=== PATIENT | female | born 1960 | race African-American/Black ===

== ENCOUNTER 2021-01-26 10:06 | Inpatient (IN) | payer MEDICARE, MEDICAID, SELFPAY ==
--- NOTE | ~2021-01-26 | CT_ITS ---
EXAMINATION: CT HEAD WITHOUT CONTRAST CLINICAL INFORMATION: Dizziness COMPARISON: None TECHNIQUE: Contiguous axial imaging was performed from the skull base to vertex without intravenous administration of contrast. This CT examination was performed using dose optimization techniques as appropriate, variously including the following: *Automated exposure control *Adjustment of mA and/or kV according to patient size (this includes techniques or standardized protocols for targeted exams where dose is matched to indication/reason for exam; i.e. extremities or head) *Use of iterative reconstruction technique DLP: 714 mGy-cm FINDINGS: There is no evidence of acute intracranial hemorrhage. No abnormal mass effect or midline shift is seen. No extra-axial fluid collections are identified. There is a large amount of periventricular white matter low density seen consistent with microangiopathy. There is a previous lacunar infarct seen involving the anterior aspect of the left internal and extreme capsules. There is a region of diminished density within the subcortical white matter in the high right parietal lobe without significant mass effect which may represent an infarct of acute or chronic nature. The ventricles are normal in size. There is no abnormal attenuation within the brain parenchyma. The osseous structures and soft tissues are normal. The mastoid air cells and visualized portions of the paranasal sinuses are well aerated. CT/CT head/brain wo con IMPRESSION: 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 Old lacunar infarct left basal ganglia. Region of diminished density without significant edema about the high right parietal lobe which may be related to an acute or chronic infarct.
--- NOTE | ~2021-01-26 | MR_ITS ---
EXAMINATION: MR BRAIN WITHOUT CONTRAST CLINICAL INFORMATION: Cerebral vascular accident. COMPARISON: CT head from 01/26/2021. TECHNIQUE: MRI of the brain was obtained using routine sequences without contrast. FINDINGS: No focal restricted diffusion is demonstrated to suggest acute or subacute cerebral ischemia. No evidence of acute or chronic hemorrhagic products on heme-sensitive imaging. Nonspecific scattered periventricular and deep white matter T2 FLAIR hyperintensities. Proportional prominence of the ventricles and sulcal spaces without evidence of obstructive hydrocephalus. No abnormal mass effect. No midline shift. Normal appearance of the pituitary gland. No abnormalities of the posterior fossa with normal appearance of the brainstem and cerebellum. Normal positioning of the cerebellar tonsils. Normal arterial and venous vascular flow voids are present. Normal, homogeneous marrow signal. Mild to moderate degenerative spondyloarthropathy of the visualized upper cervical spine. No signal abnormalities within the paranasal sinuses or mastoids. MR/MR head/brain wo con IMPRESSION: 1. No acute intracranial abnormalities. 2. Moderate underlying nonspecific white matter disease.
--- NOTE | 2021-01-26 10:39 | ECG_ITS ---
Test Reason : CRISIS Blood Pressure : / mmHG Vent. Rate : 084 BPM Atrial Rate : 084 BPM P-R Int : 140 ms QRS Dur : 078 ms QT Int : 376 ms P-R-T Axes : 074 060 061 degrees QTc Int : 444 ms Normal sinus rhythm Nonspecific ST abnormality Abnormal ECG No previous ECGs available Referred By: Yuli Billy Electronically Signed By:ANABEL CASTRO MD
--- NOTE | 2021-01-26 10:44 | ED_ITS ---
HPI - Psych General Chief Complaint: Psychiatric Symptoms Stated Complaint: crisis Time Seen by Provider: 01/26/21 10:21 Source: patient Mode of arrival: ambulatory Limitations: no limitations History of Present Illness HPI Narrative: 60-year-old female here with complaints of feeling anxious, depressed and thoughts of SI but no plan. No hallucinations or HI. Complaining of some dizziness which is worsened with position changes. No vision changes, nausea, vomiting, chest pain, shortness of breath, weakness, numbness or tingling. MD complaint: feels depressed and anxiety Related Data Home Medications Medication Instructions Recorded Confirmed apixaban [Eliquis] 1 tab PO DAILY 01/26/21 01/26/21 cyclobenzaprine 1 tab PO BID PRN 01/26/21 01/26/21 insulin glargine [Lantus Solostar 1 unit SUBCUT BEDTIME 01/26/21 01/26/21 U-100 Insulin] rosuvastatin 1 tab PO BEDTIME 01/26/21 01/26/21 Allergies Allergy/AdvReac Type Severity Reaction Status Date / Time insulin aspart [From Novolog] Allergy Unknown [id number] Unverified 01/26/21 13:01 A Novolog Allergy Unknown Itchy Eyes Uncoded 01/26/21 13:01 Review of Systems Review of Systems: Yes all other systems are reviewed and are negative Constitutional: Constitutional: Reports no additional constitutional complaints, Denies body ache(s), Denies chills, Denies fever(s), Denies headache(s) and Denies weakness Eyes: Eyes: Reports no additional eye complaints and Denies change in vision ENT: Reports system reviewed and no additional complaints, except as docume nted, Reports dizziness, Denies headache(s), Denies nasal congestion, Denies nasal discharge and Denies neck pain Cardiovascular: Cardiovascular: Reports no additional cardiovascular complaints, Denies chest pain, Denies leg edema and Denies dyspnea Respiratory: Respiratory: Reports no additional respiratory complaints, Denies cough and Denies dyspnea Gastrointestinal: Gastrointestinal: Reports no additional gastrointestinal complaints, Denies abdominal pain, Denies diarrhea, Denies nausea and Denies vomiting Genitourinary: Genitourinary: Reports no additional female genitourinary complaints and Denies urinary incontinence Musculoskeletal: Musculoskeletal: Reports no additional musculoskeletal complaints, Denies back pain, Denies arthralgias, Denies joint swelling, Denies neck pain, Denies numbness and Denies tingling Integumentary/Breasts: Skin/Breast: Reports system reviewed and no additional complaints, except as docu and Denies rash Neurologic: Reports system reviewed and no additional complaints, except as documented, Denies Abnormal speech present, Reports dizziness, Denies headache(s), Denies numbness, Denies tingling and Denies weakness Psychiatric: Psychiatric: Reports anxiety, Reports depression, Denies hallucinations, Denies homicidal ideation and Reports suicidal ideation [facility] Past Medical History Attestation statement: The following information was validated with the patient. Source: old records reviewed and nursing notes reviewed Medical History (Updated 01/26/21 @ 14:11 by Rubio Neil NP) CVA (cerebral vascular accident) Diabetes Social History Social History Smoked in Last 30 Days: No Use of substances other than those prescribed or required for medical reasons: No Advance Directives: No Advance Directives Information Provided: No Physical Exam Vital Signs: Vital Signs: Last Vital Signs Temp 97.3 F 01/26/21 11:15 Pulse 96 01/26/21 11:15 Resp 18 01/26/21 15:08 BP 146/86 H 01/26/21 11:15 Pulse Ox 98 01/26/21 11:15 Body Mass Index 42.0 Const: General: cooperative, healthy appearing, comfortable and no acute distress Orientation/consciousness: patient oriented x3 Limitations: no limitations HENMT: Head: Yes normal to inspection Ears: hearing grossly normal bilaterally General nose exam: Normal external nose present Face and sinus: Yes normal facial exam Mouth: Normal oral and palatal mucosa present Throat: Yes posterior oropharynx normal Eyes: General: appearance normal, both eyes and all related structures Pupils: Equal, round and reactive pupils present Neck: Neck: Yes normal visual inspection Chest: Chest palpation & inspection: normal inspection of the chest Resp: Effort & Inspection: normal respiratory effort Auscultation: clear to auscultation bilaterally Cardio: Rate: regular rate Rhythm: regular rhythm Peripheral pulses: Peripheral pulses 2+ throughout GI: Inspection: Yes normal to inspection Palpation (GI): Soft to palpation and nontender Auscultation: normal bowel sounds Back/Spine/Pelvis: Thoracic/Lumbar Spine: thoracic and lumbar spine normal to inspection Skin: General skin exam: no rashes or lesions noted Neuro: General: patient oriented x3, no focal motor deficits and normal sensation to monofilament Cranial nerves: Yes CN's II-XII intact bilaterally, Yes Equal, round and reactive pupils present, Yes Bilaterally intact EOM p resent, Yes Nystagmus not present, Yes Normal facial strength present, Yes Midline tongue present and Yes Normal gag reflex present Cognition (Neuro): normal cognition Speech: No Abnormal speech present Gait exam (Neuro): Normal gait present Motor exam (neuro): 5/5 motor strength present throughout Sensory Exam: Normal double simultaneous stimulation for sensation Coordination: [id number] test normal, [id number]-ib-[id number] test normal and tandem gait normal Extrem: General: Yes normal to inspection NIH Stroke Scale Internal: Initial- Upon Arrival Level of Consciousness: Alert Level of Consciousness Questions: Answers both questions correctly Level of Consciousness Commands: Performs both tasks correctly Best Gaze: Normal Visual: No visual loss Facial Palsy: Normal Motor Arm (Right): No drift Motor Arm (Left): No drift Motor Leg (Right): No drift Motor Leg (Left): No drift Limb Ataxia: Absent Sensory: Normal Best Language: No aphasia Dysarthia: Normal Extinction and Inattention: No abnormality Score: 0 Course Course Course Narrative: 60-year-old female here with anxiety, depression, vague SI. Not currently on any medications for anxiety or depression. Does not have a therapist or psychiatrist. Multiple life changes causing stress. Also complaining of dizziness which is worsened with position changes. Normal neuro exam. Will check labs, EKG, CT head, drug screen 1215-CT shows 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 Old lacunar infarct left basal ganglia. Region of diminished density without significant edema about the high right parietal lobe which may be related to an acute or chronic infarct. NIH score 0 with symptoms >1 week. Not a TPA candidate. However, will need MRI brain to determine if acute stroke. Patient and nursing aware. 1410-MRI brain 1. No acute intracranial abnormalities. 2. Moderate underlying nonspecific white matter disease. At this point patient is medically cleared for N evaluation. Nursing aware. 1700-Sign out to night team pending BHN. MDM - Psych Medical Records Attestation: I reviewed the patient's medical records. Lab Data Attestation: I reviewed the patient's lab results. Result diagrams: 01/26/21 10:57 01/26/21 10:58 Labs: Lab Results 01/26/21 01/26/21 01/26/21 Range/Units 10:30 10:30 10:57 WBC 6.2 (4.8-10.8) X10*3/uL RBC 4.53 (4.20-5.50) X10*6/uL Hgb 11.7 L (12.0-16.0) g/dl Hct 37.7 (37-47) % MCV 83.2 (80-98) fL MCH 25.8 L (27.0-33.0) pg MCHC 31.0 (31.0-35.0) g/dl RDW 13.5 (11.0-16.0) % Plt Count 319 (160-400) X10*3/uL MPV 10.0 (9.4-12.3) fL Immature Gran % (Auto) 0.3 (0.0-0.4) % Neut % (Auto) 61.8 (45-73) % Lymph % (Auto) 29.9 (20-40) % Woodford % (Auto) 5.4 (2-11) % Eos % (Auto) 2.3 (0-4) % Baso % (Auto) 0.3 (0-2) % Lymph # (Auto) 1.8 (1.2-4.9) X10*3/uL [place]ford # (Auto) 0.3 (0.1-1.2) X10*3/uL Eos # (Auto) 0.1 (0.0-0.4) X10*3/uL Baso # (Auto) 0.0 (0.0-0.2) X10*3/uL Abs Immat Gran (auto) 0.02 (0.00-0.03) X10*3/uL Absolute Neuts (auto) 3.8 (2.0-8.3) X10*3/uL Absolute Nucleated RBC 0.000 (0.0-0.012) X10*3/uL Nucleated RBC % (auto) 0.0 (0.0-0.2) /100WBC PT (10.8-13.0) SEC INR (0.9-1.1) Sodium (135-145) mmol/L Potassium (3.3-5.1) mmol/L Chloride (96-108) mmol/L Carbon Dioxide (22-29) mmol/L Anion Gap (12-20) BUN (9-16) mg/dL Creatinine (0.5-1.4) mg/dL Estim Creat Clear Calc Estimated GFR Random Glucose (60-115) mg/dL Calcium (8.4-10.2) mg/dL Magnesium (1.6-2.6) mg/dL Total Bilirubin (0.0-1.0) mg/dL Direct Bilirubin (0.0-0.5) mg/dL AST (5-31) U/L ALT (0-31) U/L Alkaline Phosphatase (39-117) U/L Troponin I High Sens (<3.5-17.0) ng/L Total Protein (6.5-8.0) g/dL Albumin (3.5-5.0) g/dL Urine Color YELLOW Urine Appearance CLEAR Urine pH 6.0 (5.0-8.0) Ur Specific Boone >= 1.030 H (1.005-1.025) Urine Protein NEG (NEG-TRACE) MG/DL Urine Glucose (UA) NEG (NEG) MG/DL Urine Ketones NEG (NEG) MG/DL Urine Blood NEG (NEG) Urine Nitrite NEG (NEG) Ur Leukocyte Esterase NEG (NEG) Urine Opiates Screen Not Detected (Not Detect) Ur Barbiturates Screen Not Detected (Not Detect) Ur Phencyclidine Scrn Not Detected (Not Detect) Ur Amphetamines Screen Not Detected (Not Detect) U Benzodiazepines Scrn Not Detected (Not Detect) Urine Cocaine Screen Not Detected (Not Detect) U Marijuana (THC) Screen Not Detected (Not Detect) Ethyl Alcohol mg/dL 01/26/21 01/26/21 01/26/21 Range/Units 10:57 10:57 10:57 WBC (4.8-10.8) X10*3/uL RBC (4.20-5.50) X10*6/uL Hgb (12.0-16.0) g/dl Hct (37-47) % MCV (80-98) fL MCH (27.0-33.0) pg MCHC (31.0-35.0) g/dl RDW (11.0-16.0) % Plt Count (160-400) X10*3/uL MPV (9.4-12.3) fL Immature Gran % (Auto) (0.0-0.4) % Neut % (Auto) (45-73) % Lymph % (Auto) (20-40) % Woodford % (Auto) (2-11) % Eos % (Auto) (0-4) % Baso % (Auto) (0-2) % Lymph # (Auto) (1.2-4.9) X10*3/uL Woodford # (Auto) (0.1-1.2) X10*3/uL Eos # (Auto) (0.0-0.4) X10*3/uL Baso # (Auto) (0.0-0.2) X10*3/uL Abs Immat Gran (auto) (0.00-0.03) X10*3/uL Absolute Neuts (auto) (2.0-8.3) X10*3/uL Absolute Nucleated RBC (0.0-0.012) X10*3/uL Nucleated RBC % (auto) (0.0-0.2) /100WBC PT 13.8 H (10.8-13.0) SEC INR 1.2 H (0.9-1.1) Sodium (135-145) mmol/L Potassium (3.3-5.1) mmol/L Chloride (96-108) mmol/L Carbon Dioxide (22-29) mmol/L Anion Gap (12-20) BUN (9-16) mg/dL Creatinine (0.5-1.4) mg/dL Estim Creat Clear Calc Estimated GFR Random Glucose (60-115) mg/dL Calcium (8.4-10.2) mg/dL Magnesium (1.6-2.6) mg/dL Total Bilirubin (0.0-1.0) mg/dL Direct Bilirubin (0.0-0.5) mg/dL AST (5-31) U/L ALT (0-31) U/L Alkaline Phosphatase (39-117) U/L Troponin I High Sens < 3.5 (<3.5-17.0) ng/L Total Protein (6.5-8.0) g/dL Albumin (3.5-5.0) g/dL Urine Color Urine Appearance Urine pH (5.0-8.0) Ur Specific Boone (1.005-1.025) Urine Protein (NEG-TRACE) MG/DL Urine Glucose (UA) (NEG) MG/DL Urine Ketones (NEG) MG/DL Urine Blood (NEG) Urine Nitrite (NEG) Ur Leukocyte Esterase (NEG) Urine Opiates Screen (Not Detect) Ur Barbiturates Screen (Not Detect) Ur Phencyclidine Scrn (Not Detect) Ur Amphetamines Screen (Not Detect) U Benzodiazepines Scrn (Not Detect) Urine Cocaine Screen (Not Detect) U Marijuana (THC) Screen (Not Detect) Ethyl Alcohol < 10 mg/dL 01/26/21 Range/Units 10:58 WBC (4.8-10.8) X10*3/uL RBC (4.20-5.50) X10*6/uL Hgb (12.0-16.0) g/dl Hct (37-47) % MCV (80-98) fL MCH (27.0-33.0) pg MCHC (31.0-35.0) g/dl RDW (11.0-16.0) % Plt Count (160-400) X10*3/uL MPV (9.4-12.3) fL Immature Gran % (Auto) (0.0-0.4) % Neut % (Auto) (45-73) % Lymph % (Auto) (20-40) % Woodford % (Auto) (2-11) % Eos % (Auto) (0-4) % Baso % (Auto) (0-2) % Lymph # (Auto) (1.2-4.9) X10*3/uL Woodford # (Auto) (0.1-1.2) X10*3/uL Eos # (Auto) (0.0-0.4) X10*3/uL Baso # (Auto) (0.0-0.2) X10*3/uL Abs Immat Gran (auto) (0.00-0.03) X10*3/uL Absolute Neuts (auto) (2.0-8.3) X10*3/uL Absolute Nucleated RBC (0.0-0.012) X10*3/uL Nucleated RBC % (auto) (0.0-0.2) /100WBC PT (10.8-13.0) SEC INR (0.9-1.1) Sodium 141 (135-145) mmol/L Potassium 4.0 (3.3-5.1) mmol/L Chloride 105 (96-108) mmol/L Carbon Dioxide 26 (22-29) mmol/L Anion Gap 14 (12-20) BUN 13 (9-16) mg/dL Creatinine 0.76 (0.5-1.4) mg/dL Estim Creat Clear Calc 91.4 Estimated GFR > 60 Random Glucose 117 H (60-115) mg/dL Calcium 9.8 (8.4-10.2) mg/dL Magnesium 1.8 (1.6-2.6) mg/dL Total Bilirubin 0.6 (0.0-1.0) mg/dL Direct Bilirubin 0.2 (0.0-0.5) mg/dL AST 18 (5-31) U/L ALT 20 (0-31) U/L Alkaline Phosphatase 72 (39-117) U/L Troponin I High Sens (<3.5-17.0) ng/L Total Protein 7.2 (6.5-8.0) g/dL Albumin 4.2 (3.5-5.0) g/dL Urine Color Urine Appearance Urine pH (5.0-8.0) Ur Specific Boone (1.005-1.025) Urine Protein (NEG-TRACE) MG/DL Urine Glucose (UA) (NEG) MG/DL Urine Ketones (NEG) MG/DL Urine Blood (NEG) Urine Nitrite (NEG) Ur Leukocyte Esterase (NEG) Urine Opiates Screen (Not Detect) Ur Barbiturates Screen (Not Detect) Ur Phencyclidine Scrn (Not Detect) Ur Amphetamines Screen (Not Detect) U Benzodiazepines Scrn (Not Detect) Urine Cocaine Screen (Not Detect) U Marijuana (THC) Screen (Not Detect) Ethyl Alcohol mg/dL Imaging Data CT scan - head: Attestation: I personally reviewed and interpreted this imaging study as follows: Radiologist's impression: 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 Old lacunar infarct left basal ganglia. Region of diminished density without significant edema about the high right parietal lobe which may be related to an acute or chronic infarct. MRI - head: Attestation: I personally reviewed and interpreted this imaging study as follows: Radiologist's impression: [address] [id number] Resonance ReportSigned Patient: Tia Bro#: [id number]: 2Acct:[id number]/Sex: 60 / FADM Date: 01/26/21Loc: HO.EDAttending Dr: Ordering Physician: RUBIO NEIL NP Date of Service: 01/26/21 Procedure(s): MR head/brain wo con Accession Number(s): [id number] cc: RUBIO NEIL NP~ EXAMINATION: MR BRAIN WITHOUT CONTRAST CLINICAL INFORMATION: Cerebral vascular accident. COMPARISON: CT head from 01/26/2021. TECHNIQUE: MRI of the brain was obtained using routine sequences without contrast. FINDINGS: No focal restricted diffusion is demonstrated to suggest acute or subacute cerebral ischemia. No evidence of acute or chronic hemorrhagic products on heme-sensitive imaging. Nonspecific scattered periventricular and deep white matter T2 FLAIR hyperintensities. Proportional prominence of the ventricles and sulcal spaces without evidence of obstructive hydrocephalus. No abnormal mass effect. No midline shift. Normal appearance of the pituitary gland. No abnormalities of the posterior fossa with normal appearance of the brainstem and cerebellum. Normal positioning of the cerebellar tonsils. Normal arterial and venous vascular flow voids are present. Normal, homogeneous marrow signal. Mild to moderate degenerative spondyloarthropathy of the visualized upper cervical spine. No signal abnormalities within the paranasal sinuses or mastoids. MR/MR head/brain wo con IMPRESSION: 1. No acute intracranial abnormalities. 2. Moderate underlying nonspecific white matter disease. ECG Data Attestation: I personally reviewed and interpreted this ECG as follows: ECG interpretation date: 01/26/21 ECG interpretation time: 12:20 Interpretation: NSR with rate 84, normal pr, normal qrs, normal qt Discharge Plan Discharge Clinical Impression: Depression Prescriptions: No Action cyclobenzaprine 10 mg tablet 1 tab PO BID PRN (Reason: Pain) RF: 0 rosuvastatin 20 mg tablet 1 tab PO BEDTIME RF: 0 Lantus Solostar U-100 Insulin 100 unit/mL (3 mL) insulin pen 1 unit subcut BEDTIME RF: 0 Eliquis 5 mg tablet 1 tab PO DAILY RF: 0
[2021-01-26 10:58] LABS: Glucose Urine UA NEG (NEG); Leukocyte Esterase Urine NEG (NEG); Nitrite Urine NEG (NEG); Specific Gravity - Urine >= 1.030 (1.005-1.025); Urine Blood NEG (NEG); Urine Ketones NEG (NEG); Urine Protein NEG (NEG-TRACE)
[2021-01-26 10:59] VITALS: BP 127/72; BP 143/83; PULSE 90; PULSE 91
[2021-01-26 10:59] LABS: Appearance Urine CLEAR; Color Urine YELLOW
[2021-01-26 11:00] VITALS: BP 129/77; PULSE 98
[2021-01-26 11:03] LABS: MANUAL DIFF FLAG NO
[2021-01-26 11:05] LABS: Basophils Percent Auto 0.3 % (0-2); Eosinophils Absolute Auto 0.1 X10*3/uL (0.0-0.4); Eosinophils Percent Auto 2.3 % (0-4); Hematocrit 37.7 % (37-47); Hemoglobin 11.7 g/dl (12.0-16.0); Imm Gran Abs Auto 0.02 X10*3/uL (0.00-0.03); Imm Gran Pct Auto 0.3 % (0.0-0.4); Lymphocytes Absolute Auto 1.8 X10*3/uL (1.2-4.9); Lymphocytes Percent Auto 29.9 % (20-40); Mean Corpuscular Hemoglobin 25.8 pg (27.0-33.0); Mean Corpuscular Volume 83.2 fL (80-98); Monocytes Absolute Auto 0.3 X10*3/uL (0.1-1.2); Monocytes Percent Auto 5.4 % (2-11); Neutrophils Absolute Auto 3.8 X10*3/uL (2.0-8.3); Neutrophils Percent Auto 61.8 % (45-73); Platelet Count 319 X10*3/uL (160-400); Red Blood Count 4.53 X10*6/uL (4.20-5.50); Red Cell Distribution Width 13.5 % (11.0-16.0); White Blood Count 6.2 X10*3/uL (4.8-10.8)
[2021-01-26 11:15] VITALS: BP 146/86; PULSE 96; RESP 17; TEMP 36.3; O2SAT 98; BMI 42.0
[2021-01-26 11:25] LABS: Amphetamine Screen Urine Not Detected (Not Detect); Barbiturates, Urine Not Detected (Not Detect); Benzodiazepines Screen Urine Not Detected (Not Detect); Cannabinoid Screen Urine Not Detected (Not Detect); Cocaine Screen Urine Not Detected (Not Detect); Opiate Screen Urine Not Detected (Not Detect); Phencyclidine Screen Urine Not Detected (Not Detect)
[2021-01-26 11:27] LABS: Ethanol < 10 mg/dL
[2021-01-26 11:32] LABS: Alanine Aminotransferase 20 U/L (0-31); Albumin Level 4.2 g/dL (3.5-5.0); Alkaline Phosphatase 72 U/L (39-117); Anion Gap 14 (12-20); Aspartate Amino Transferase 18 U/L (5-31); Bilirubin Direct 0.2 mg/dL (0.0-0.5); Bilirubin Total 0.6 mg/dL (0.0-1.0); Blood Urea Nitrogen 13 mg/dL (9-16); Calcium 9.8 mg/dL (8.4-10.2); Carbon Dioxide 26 mmol/L (22-29); Chloride 105 mmol/L (96-108); Creatinine Clr Calc Pharmacy 91.4; Estimated Glomerular Filt Rate > 60; Glucose Random 117 mg/dL (60-115); Magnesium 1.8 mg/dL (1.6-2.6); Sodium 141 mmol/L (135-145); Total Protein 7.2 g/dL (6.5-8.0)
[2021-01-26 11:40] LABS: Troponin-I High Sensitivity < 3.5 ng/L (<3.5-17.0)
[2021-01-26 11:47] LABS: INTERNATIONAL NORM RATIO 1.2 (0.9-1.1); Prothrombin Time 13.8 SEC (10.8-13.0)
--- NOTE | 2021-01-26 12:11 | PC.NURSE ---
INFO SENT TO [facility], THEY CALLED AND CONFIRMED, THEY STYATE THEY EXPECT TO BE HERE IN 60 MINUTES AND WILL CALL IF THEY CAN'T
--- NOTE | 2021-01-26 12:50 | PC.NURSE ---
ATE LUNCH, NAD, AWARE OF CARE PLAN AND PLAN FOR MRI, SCREENING FORM COMPLETE. WILL HAVE MRI IN APPROX 30MIN, C/O SOME DIZZINESS AT TIMES
[2021-01-26] MEDS: LORazepam 1 MG TABLET 2 MG PO (13:05)
[2021-01-26 15:08] VITALS: RESP 18
--- NOTE | 2021-01-26 15:10 | PC.NURSE ---
Report taken from ysabel rn. pt given gingerale and book. no distress noted.
--- NOTE | 2021-01-26 15:50 | PC.NURSE ---
Contact made to dax at [facility] regarding status update for inticial eval for pt. Per dax we already told you that no one is coming why are you calling? Dax at [facility] educated about shift follow up policy. No ETA given. Plan to call back in 1 hr.
[2021-01-26 16:00] VITALS: RESP 16
--- NOTE | 2021-01-26 17:17 | PC.NURSE ---
Contact made to ADENN: JOSELINE mendoza [employer] to call Pod in 15 minutes.
--- NOTE | 2021-01-26 17:38 | PC.NURSE ---
damir verduzco at [facility] no eta/no supervisory cbp officer to call back .
--- NOTE | 2021-01-26 17:58 | PC.NURSE ---
per brooks hodges, pt to have 45 units lantus 2x daily
[2021-01-26 18:00] VITALS: RESP 16
--- NOTE | 2021-01-26 18:13 | PC.NURSE ---
contact made to n: per Nicky, no clinician is available and no eta provided.
--- NOTE | 2021-01-26 18:19 | PC.NURSE ---
pt requests use of peribottle for after bms due to gi issues. pt educated that contact must be made to charge preparation technician regarding use of personal supplies. continuing to jonah at this time.
--- NOTE | 2021-01-26 19:57 | PC.NURSE ---
Care Team at bedside. Patient engaged.
--- NOTE | 2021-01-26 20:41 | MHC.CARE ---
[facility] unable to provide a clinician to evaluate pt. CARE team contacted [facility] to notify them that CARE team will be taking over the case. Pt has Medicare/Medicaid insurance and will not require an insurance auth precert if found level of care. CARE team completed evaluation with disposition of inpatient psychiatric placement. Assessment will be available shortly. Pt is help seeking and voluntary for admission and will not be placed on a Section 12a as there are no imminent safety risks identified at this time.
--- NOTE | 2021-01-26 21:00 | PC.NURSE ---
Care Team finished patient assessment, disposition voluntary inpatient bed search, patient and provider aware, patient is in her room, no distress reported, will continue to monitor.
[2021-01-26] MEDS: Insulin Glargine,Hum.rec.anlog 100 UNIT/ML 10 ML VIAL 45 UNIT SUBCUT (21:01)
[2021-01-26 21:03] LABS: Glucose, Whole Blood 281 mg/dL (60-115)
[2021-01-26] MEDS: Cyclobenzaprine HCl 10 MG TABLET PO (21:10)
[2021-01-26 23:17] LABS: COVID-19 Test Negative (Negative); IDNOW Serial# 9DD0AD1C
[2021-01-27 02:22] VITALS: BP 135/78; PULSE 102; RESP 16; TEMP 36.6; O2SAT 98
[2021-01-27] MEDS: Insulin Glargine,Hum.rec.anlog 100 UNIT/ML 10 ML VIAL 45 UNIT SUBCUT ×2 (08:41→20:44)
[2021-01-27 08:45] LABS: Glucose, Whole Blood 171 mg/dL (60-115)
[2021-01-27 09:09] VITALS: BP 132/72; PULSE 93; RESP 18; TEMP 36.2; O2SAT 97
[2021-01-27] MEDS: LORazepam 1 MG TABLET PO (12:33)
--- NOTE | 2021-01-27 13:26 | MHC.CARE ---
Bed search exhausted.
[2021-01-27 17:14] VITALS: RESP 18
[2021-01-27 20:33] LABS: Glucose, Whole Blood 261 mg/dL (60-115)
[2021-01-27] MEDS: Cyclobenzaprine HCl 10 MG TABLET PO (20:43)
--- NOTE | 2021-01-27 20:57 | PC.NURSE ---
Patient POC was 261, administered scheduled Lantus 45 units as ordered, refused her Lipitor, requested senna for bowel, provider ordered 15 ml of senna/administered as ordered/pending effect, patient currently in her room watching TV, calm and quiet, no distress reported, will continue to monitor.
[2021-01-28 04:43] VITALS: BP 135/75; PULSE 95; RESP 18; TEMP 37; O2SAT 97
--- NOTE | 2021-01-28 07:05 | PC.NURSE ---
patient appears in no distress, reported from prior RN that patient has some personal care bottle with her in shower and it should be returned to locker.
[2021-01-28] MEDS: Insulin Glargine,Hum.rec.anlog 100 UNIT/ML 10 ML VIAL 45 UNIT SUBCUT ×2 (07:39→21:03)
[2021-01-28 17:35] VITALS: BP 160/83; PULSE 95; RESP 18; TEMP 36; O2SAT 100; BMI 41.3
[2021-01-28 18:27] LABS: Glucose, Whole Blood 237 mg/dL (60-115)
--- NOTE | 2021-01-28 18:40 | PC.ADMIT ---
Aminah is a 60 year old single black female admitted to [facility] from [facility] ED where she self presented on 01/26/21 for overwhelming anxiety , which she reports is in response to people following her, COVID, and being homeless. Throughout her nursing admission assessment Aminah was guarded, declining to answer many questions, making the history difficult to obtain. Per referral source, in addition to anxiety, Aminah presented with depressed mood, suicidal thoughts and psychosis including auditory hallucinations but currently patient denies these issues. Aminah denies ideation, plan or intent to harm self or others currently or in the past. She denies recent or remote history of trauma of any kind. She confirms past psychiatric hospitalizations for anxiety only. She denies taking any psychiatric medications at present and denies that any have been helpful to her in the past Aminah is alert and oriented x 3. Aminah reports poor sleep but is vague about hours and type of sleep disturbance. Aminah reports having lost 20 pounds in the past two weeks. She denies lack of appetite and attributes weight loss to I'm burning it up. Aminah demonstrated good focus throughout admission assessment. Thought process was linear. However, she maintained poor eye contact. She was not observed responding to internal stimuli by this nurse. Hygiene and grooming are unremarkable. Aminah has diagnosis of IDDM. Her blood sugar after dinner was 237 this shift. She reports having had COVID a few months ago , was hospitalized in [place], placed on Eliquis for clotting at that time and was later taken off Eliquis at an unspecified time. She reports having had her first COVID vaccine ( Pfizer) but is inquiring about obtaining her second shot here. Patient reports that her goal for this admission is to get help for her overwhelming anxiety and improve sleep.
[2021-01-28] MEDS: Cyclobenzaprine HCl 10 MG TABLET PO (21:09)
[2021-01-29 00:59] LABS: Glucose, Whole Blood 207 mg/dL (60-115)
[2021-01-29 05:42] VITALS: BP 146/70; PULSE 83; RESP 18; TEMP 36.4; O2SAT 96
[2021-01-29 06:05] LABS: Glucose, Whole Blood 147 mg/dL (60-115)
[2021-01-29] MEDS: Insulin Glargine,Hum.rec.anlog 100 UNIT/ML 10 ML VIAL 45 UNIT SUBCUT ×2 (09:02→21:06)
--- NOTE | 2021-01-29 09:05 | HO.PSYADMNOT ---
HPI Chief Complaint: Depression Sources of Information: patient interviewed, chart reviewed and crisis/core team assessment reviewed HPI Subjective Notes: Recio Warning (Recio warning given including mention that patients participation is voluntary and the possibility of court ordered involuntary commitment and treatment with antipsychotics. ) Narrative: Patient is a 60-year-old female with history of depression, trauma, AH and prior inpatient admissions who presents for increased anxiety. Crisis team reports patient the patient had passive SI, but patient says denies this. Patient reports that about 4 months ago she went off her medications which include Trilafon. She said she felt like she probably did need them. She says past few months have gone well, and denies any depression or suicidality. She reports intermittent auditory hallucinations during this time but she says these are chronic and although bothersome, she tolerated them. Patient said that last week she started feeling anxious like she could not get settled and that her mind was ?speedy. ? She thinks it was perhaps due to drinking too much coffee, but she said this prompted her to come to the emergency room patient denies accompanying manic symptoms. She reports having restless sleep, but denies insomnia and has felt tired wishing she could sleep better; she denies rapid or pressured speech, change in behaviors or increased activity or energy. Patient is talking calmly and presents without any manic symptoms. While in the emergency room, patient was given Ativan prior to MRI. She says this Ativan seems to have broken the anxiety and it has remained resolved. At this point she says she probably does not need to stay much longer, but is willing to consider another medication for the Voices which are bothersome and describes as the voices of people that she has met in the past, but who are currently trying to interact with her, say negative things. She says these are not hallucinations these are actual people there are actual voices. Patient denies any alcohol or substance abuse, sane she has not used drugs or alcohol since 2003. She reports a history of trauma but says she has processed this stuff like talking through it and denies PTSD symptoms. Patient and residential mortgage underwriter discussed treatments for auditory hallucinations and discussed the risks and benefits of ziprasidone. Patient says she would like to think about it for a bit. Patient says she currently was staying in a half-way, but there were too many men there and she has since left. She would like to find a new half-way Past Psychiatric History: Past med trials: Risperdal-helped but made her gain weight Trilafon-caused overmedicated feeling Abilify-did not like got off in 3 days Zoloft Zyprexa hx of inpatient admisisons Medical Evaluation Reviewed: Yes [facility] Medical History (Updated 01/29/21 @ 16:13 by Fantasma Lorenzana) CVA (cerebral vascular accident) Diabetes Schizoaffective disorder, depressive type Family History: deferred Social History: living in half-way until this week; left since too many men there Substance History: Repeats no substance use since 2003 Trauma History: Reports history of trauma, but denies PTSD symptoms reporting she has worked through them by talking Diagnostics Vital Signs (24Hr): Vital Signs - 24 hr 01/28/21 17:35 01/29/21 05:42 Temperature 96.8 F 97.5 F Pulse Rate 95 83 Respiratory Rate 18 18 Blood Pressure 160/83 H 146/70 H Pulse Oximetry 100 96 Body Mass Index 41.3 Labs Results: 01/26/21 10:57 01/26/21 10:58 Labs: Laboratory Results - last 48 hr 01/27/21 01/28/21 01/28/21 20:29 12:44 18:23 POC Glucose 261 H 207 H 237 H 01/29/21 05:39 POC Glucose 147 H Imaging Radiology Impressions: ITS Impressions Head CT 01/26/21 10:39 IMPRESSION: 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 Old lacunar infarct left basal ganglia. Region of diminished density without significant edema about the high right parietal lobe which may be related to an acute or chronic infarct. Brain MRI 01/26/21 12:15 IMPRESSION: 1. No acute intracranial abnormalities. 2. Moderate underlying nonspecific white matter disease. Meds/Allergies Meds Home Medications Acetaminophen (Acetaminophen 325 Mg Tablet) 650 mg PO Q6H PRN PRN Reason: Headache/Pain Mild Scale (1-3) Apixaban (Apixaban 5 Mg Tablet) 5 mg PO DAILY [facility] Last Admin: 01/29/21 09:39 Dose: Not Given Documented by: Atorvastatin Calcium (Atorvastatin Calcium 80 Mg Tablet) 80 mg PO BEDTIME [facility] Last Admin: 01/28/21 21:22 Dose: Not Given Documented by: Cyclobenzaprine HCl (Cyclobenzaprine Hcl 10 Mg Tablet) 10 mg PO BID PRN PRN Reason: Pain Last Admin: 01/28/21 21:09 Dose: 10 mg Documented by: Doxycycline Hyclate (Doxycycline Hyclate 100 Mg Tablet) 100 mg PO BID [facility] Last Admin: 01/29/21 09:01 Dose: 100 mg Documented by: Famotidine (Famotidine 20 Mg Tablet) 20 mg PO DAILY PRN PRN Reason: heartburn Hydroxyzine HCl (Hydroxyzine Hcl 25 Mg Tablet) 25 mg PO TID PRN PRN Reason: Anxiety Last Admin: 01/29/21 09:55 Dose: 25 mg Documented by: Insulin Glargine (Insulin Glargine,Hum.Rec.Anlog 100 Unit/Ml 10 Ml Vial) 45 unit SUBCUT BID [facility] Last Admin: 01/29/21 09:02 Dose: 45 unit Documented by: Magnesium Hydroxide (Milk Of Magnesia 30 Ml Oral.Susp) 30 ml PO DAILY PRN PRN Reason: Constipation Nicotine Polacrilex (Nicotine Polacrilex 2 Mg Gum) 4 mg BUCCAL Q2H PRN PRN Reason: Nicotine Cravings Trazodone HCl (Trazodone Hcl 50 Mg Tablet) 50 mg PO BEDTIME PRN PRN Reason: Insomnia Allergies Allergies Allergy/AdvReac Type Severity Reaction Status Date / Time insulin aspart [From Novolog] Allergy Unknown HYPOGLYCMEI Unverified 01/26/21 13:01 A Novolog Allergy Unknown Itchy Eyes Uncoded 01/26/21 13:01 Mental Status Exam Mental Status Exam Narrative: Pt is alert and oriented; behavior is cooperative, friendly and calm; patient is not in distress; dressed in casual attire with scarf around her head and with adequate hygiene; mood is described as good and affect congruent; eye contact appropriate; Speech is normal rate, volume and prosody and not pressured; no psychomotor agitation/retardation present; thought process is organized, linear, logical and goal directed. Thought content is on getting treatment for ?voices and is pertinent to relevant topics and without any delusional content, paranoid ideations or grandiosity; denies any SI/HI. There is no evidence of perceptual disturbance. Patient has some struggles with insight, and reports the auditory hallucinations are real: otherwise insight and judgment appear relatively intact. Assessment & Plan Assessment & Plan (1) Schizoaffective disorder, depressive type: Status: Acute Code(s): F25.1 - Schizoaffective disorder, depressive type Assessment and Plan: Impression: Patient is a 60-year-old female with history of depression, trauma, AH and prior inpatient admissions who presents for increased anxiety. Patient reports long history of auditory hallucinations with intermittent bouts of depression and meets criteria for schizoaffective disorder. She reports recent exacerbation of bothersome anxiety but denies any other manic symptoms; anxiety seems to have resolved with a single dose of Ativan received in the emergency room. Patient denies any SI. Crisis team reports patient expressed SI, though residential mortgage underwriter called to clarify and SW reports pt's SI was passive only. Currently patient is stable and calm, though remains with ongoing auditory hallucinations and is considering a medication for this. She says she will probably only need to stay a few days. Plan Patient signed a CV, Q 15 minutes checks Continue home medications Patient is considering ziprasidone or another medication for auditory hallucinations Patient educated on: diagnosis, medication risk/benefits and substance abuse Informed Consent: understands Reason for continued inpatient stay Substantial Risk for: rapid decompensation and med/psych decompensation
[2021-01-29] MEDS: hydrOXYzine HCL 25 MG TABLET PO (09:55)
--- NOTE | 2021-01-29 11:04 | PC.NURSE ---
Pt signed three day notice on 01/29/2021.
[2021-01-29 19:00] VITALS: BP 133/86; PULSE 100; TEMP 36.2
[2021-01-29] MEDS: Milk of Magnesia 30 ML ORAL.SUSP PO (21:07)
[2021-01-29] MEDS: Cyclobenzaprine HCl 10 MG TABLET PO (21:08)
[2021-01-29] MEDS: Acetaminophen 325 MG TABLET 650 MG PO (21:10)
[2021-01-29 21:38] LABS: Glucose, Whole Blood 245 mg/dL (60-115)
[2021-01-30 06:04] LABS: Glucose, Whole Blood 125 mg/dL (60-115)
[2021-01-30 06:55] VITALS: BP 132/77; PULSE 85; RESP 18; TEMP 36.6; O2SAT 97
[2021-01-30] MEDS: Insulin Glargine,Hum.rec.anlog 100 UNIT/ML 10 ML VIAL 45 UNIT SUBCUT ×2 (08:18→20:17)
--- NOTE | 2021-01-30 09:37 | HO.PSYCHPN ---
Subjective Subjective Date of Service: 01/30/21 Reason For Visit: Depression Interim History: Patient reports she is in good mood, anxiety remains resolved. She denies depression and any SI. Patient also says that auditory hallucinations, voices have not been here since admission. Patient was initially ambiguous about starting Geodon but agreed to 20 mg at bedtime since she has trouble sleeping also. She complained about muscle tension and wanted Robaxin, but understands that it is probably more due to anxiety and will continue with the Flexeril p.r.n. loan underwriter asked patient about refusing Lipitor and she said she will just wait until discharged and restart her normal anticholesterol medication (which is not on formulary). Patient has a listed allergy to ?NovoLog ? (she says gives her vertigo) and so wanted to make sure her she got Lantus, asking nurse to show her the Lantus vial. She said nurse was very accommodating. Patient says she is working with social media content manager to find a chcf with less male occupants and will likely ask for discharge this or Thursday. Ship Superintendent inquired and patient said hemoglobin A1c was tested 2 months ago and was 6.0. Patient has no other complaints. paranoid about if RN will mistakenly pull up Lantus... refused lipitor Medication Compliance: Yes Side effects from medications: No Attending Groups: No Mental Status Exam Mental Status Exam Narrative: Pt is alert and oriented; behavior is cooperative, friendly and calm; patient is not in distress; dressed in casual attire with scarf around her head and with adequate hygiene; mood is described as good and affect congruent; eye contact appropriate; Speech is normal rate, volume and prosody and not pressured; no psychomotor agitation/retardation present; thought process is organized, linear, logical and goal directed. Thought content is on getting treatment for ?voices and is pertinent to relevant topics and without any delusional content (other than those associated with chronic AH), paranoid ideations or grandiosity; denies any SI/HI. There is no evidence of perceptual disturbance. Patient has some struggles with insight, and reports the auditory hallucinations are real: otherwise insight and judgment appear relatively intact. Diagnostics Vital Signs (24Hr): Vital Signs - 24 hr 01/29/21 19:00 01/30/21 06:55 Temperature 97.1 F 98 F Pulse Rate 100 85 Respiratory Rate 18 Blood Pressure 133/86 132/77 Pulse Oximetry 97 Body Mass Index 41.3 Labs Results: 01/26/21 10:57 01/26/21 10:58 Labs: Laboratory Results - last 48 hr 01/28/21 01/28/21 01/29/21 12:44 18:23 05:39 POC Glucose 207 H 237 H 147 H 01/29/21 01/30/21 20:58 05:59 POC Glucose 245 H 125 H Imaging Radiology Impressions: ITS Impressions Head CT 01/26/21 10:39 IMPRESSION: 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 Old lacunar infarct left basal ganglia. Region of diminished density without significant edema about the high right parietal lobe which may be related to an acute or chronic infarct. Brain MRI 01/26/21 12:15 IMPRESSION: 1. No acute intracranial abnormalities. 2. Moderate underlying nonspecific white matter disease. Medications Medications Current Medications Generic Name Dose Route Start Last Admin Trade Name Freq PRN Reason Stop Dose Admin Acetaminophen 650 mg 01/28/21 16:59 01/29/21 21:10 Acetaminophen 325 Mg Tablet PO 650 mg Q6H PRN Administration Headache/Pain Mild Scale (1-3) Apixaban 5 mg 01/27/21 09:00 01/30/21 08:19 Apixaban 5 Mg Tablet PO Not Given DAILY [facility] Atorvastatin Calcium 80 mg 01/26/21 21:00 01/29/21 21:01 Atorvastatin Calcium 80 Mg Tablet PO Not Given BEDTIME [facility] Cyclobenzaprine HCl 10 mg 01/26/21 17:43 01/29/21 21:08 Cyclobenzaprine Hcl 10 Mg Tablet PO 10 mg BID PRN Administration Pain Doxycycline Hyclate 100 mg 01/26/21 21:00 01/30/21 08:15 Doxycycline Hyclate 100 Mg Tablet PO 100 mg BID [facility] Administration Famotidine 20 mg 01/28/21 13:52 Famotidine 20 Mg Tablet PO DAILY PRN heartburn Hydroxyzine HCl 25 mg 01/28/21 16:59 01/29/21 09:55 Hydroxyzine Hcl 25 Mg Tablet PO 25 mg TID PRN Administration Anxiety Insulin Glargine 45 unit 01/26/21 21:00 01/30/21 08:18 Insulin Glargine,Hum.Rec.Anlog 100 Unit/Ml 10 Ml Vial SUBCUT 45 unit BID [facility] Administration Magnesium Hydroxide 30 ml 01/28/21 16:59 01/29/21 21:07 Milk Of Magnesia 30 Ml Oral.Susp PO 30 ml DAILY PRN Administration Constipation Nicotine Polacrilex 4 mg 01/28/21 16:59 Nicotine Polacrilex 2 Mg Gum BUCCAL Q2H PRN Nicotine Cravings Trazodone HCl 50 mg 01/28/21 16:59 Trazodone Hcl 50 Mg Tablet PO BEDTIME PRN Insomnia Allergies Allergies Allergy/AdvReac Type Severity Reaction Status Date / Time insulin aspart [From Novolog] Allergy Unknown HYPOGLYCMEI Unverified 01/26/21 13:01 A Novolog Allergy Unknown Itchy Eyes Uncoded 01/26/21 13:01 Assessment & Plan Assessment & Plan (1) Schizoaffective disorder, depressive type: Status: Acute Code(s): F25.1 - Schizoaffective disorder, depressive type Assessment and Plan: Impression: Patient is a 60-year-old female with history of depression, trauma, AH and prior inpatient admissions who presents for increased anxiety. Patient reports long history of auditory hallucinations with intermittent bouts of depression and meets criteria for schizoaffective disorder. She reports recent exacerbation of bothersome anxiety but denies any other manic symptoms; anxiety seems to have resolved with a single dose of Ativan received in the emergency room. Patient denies any SI. Crisis team reports patient expressed SI, though loan underwriter called to clarify and SW reports pt's SI was passive only. Currently patient is stable and calm. She says she has not had auditory hallucinations, voices, since admission however there are chronic, bothersome and she is considering a medication for this. She says she will probably only need to stay a few days. Patient remains stable Plan Signed a 3 day Patient signed a CV 15 minutes checks Continue home medications Start ziprasidone 20 mg at bedtime for AH; patient wants only lowest dose and at bedtime in case sedating Ship Superintendent discussed risks/side effects of Ziprasidone; patient communicated understanding of benefits, risks and side-effects of medications and wants to continue with regimen. Greater than 50% of the session was spent on counseling and/or coordination of care Reason for contiued inpatient stay Substantial Risk for: other (approaching discharge)
[2021-01-30 11:05] LABS: UPreg QC Valid YES; Urine Pregnancy NEGATIVE (NEGATIVE)
[2021-01-30 11:36] LABS: Glucose, Whole Blood 229 mg/dL (60-115)
[2021-01-30 17:05] LABS: Glucose, Whole Blood 234 mg/dL (60-115)
[2021-01-30 18:00] VITALS: BP 152/68; PULSE 88; TEMP 35.9
[2021-01-30] MEDS: Ziprasidone 20 MG CAPSULE PO (20:17)
[2021-01-30] MEDS: Milk of Magnesia 30 ML ORAL.SUSP PO (20:34)
[2021-01-30] MEDS: Cyclobenzaprine HCl 10 MG TABLET PO (20:34)
[2021-01-31 06:00] VITALS: BP 122/58; PULSE 82; RESP 18; TEMP 36.6; O2SAT 98
--- NOTE | 2021-01-31 09:11 | HO.PSYCHPN ---
Subjective Subjective Date of Service: 01/31/21 Reason For Visit: Depression Interim History: Patient reports she is in a good mood and anxiety remains resolved. No SI. Patient asks for discharge tomorrow. Her plan is to go to half-way. Patient is still a little ambivalent about continuing ziprasidone, but says she will do so for now; she denies any side effects. She continues to deny auditory hallucinations and hopes will stay that way, however she has had them she reports for years. Patient says she has all her other medications and does not need refills on anything, and only wants prescriptions for Flexeril found ziprasidone. Medication Compliance: Yes Side effects from medications: No Mental Status Exam Mental Status Exam Narrative: Pt is alert and oriented; behavior is cooperative, friendly and calm; patient is not in distress; dressed in casual attire, no scarf, with adequate hygiene; mood is described as good and affect congruent; eye contact appropriate; Speech is normal rate, volume and prosody and not pressured; no psychomotor agitation/retardation present; thought process is organized, linear, logical and goal directed. Thought content is on discharge and is pertinent to relevant topics and without any delusional content (other than those associated with chronic AH), paranoid ideations or grandiosity; denies any SI/HI. Current radiation denies auditory hallucinations. There is no evidence of perceptual disturbance. Patient has some struggles with insight, and reports the auditory hallucinations are real: otherwise insight and judgment appear relatively intact. Diagnostics Vital Signs (24Hr): Vital Signs - 24 hr 01/30/21 18:00 01/31/21 06:00 Temperature 96.7 F L 98 F Pulse Rate 88 82 Respiratory Rate 18 Blood Pressure 152/68 H 122/58 L Pulse Oximetry 98 Body Mass Index 41.3 Labs Results: 01/26/21 10:57 01/26/21 10:58 Labs: Laboratory Results - last 48 hr 01/29/21 01/30/21 01/30/21 20:58 05:59 10:40 POC Glucose 245 H 125 H Urine Test NEGATIVE 01/30/21 01/30/21 11:31 16:59 POC Glucose 229 H 234 H Urine Test Imaging Radiology Impressions: ITS Impressions Head CT 01/26/21 10:39 IMPRESSION: 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 Old lacunar infarct left basal ganglia. Region of diminished density without significant edema about the high right parietal lobe which may be related to an acute or chronic infarct. Brain MRI 01/26/21 12:15 IMPRESSION: 1. No acute intracranial abnormalities. 2. Moderate underlying nonspecific white matter disease. Medications Medications Current Medications Generic Name Dose Route Start Last Admin Trade Name Freq PRN Reason Stop Dose Admin Acetaminophen 650 mg 01/28/21 16:59 01/29/21 21:10 Acetaminophen 325 Mg Tablet PO 650 mg Q6H PRN Administration Headache/Pain Mild Scale (1-3) Apixaban 5 mg 01/27/21 09:00 01/30/21 08:19 Apixaban 5 Mg Tablet PO Not Given DAILY [facility] Atorvastatin Calcium 80 mg 01/26/21 21:00 01/30/21 20:38 Atorvastatin Calcium 80 Mg Tablet PO Not Given BEDTIME [facility] Cyclobenzaprine HCl 10 mg 01/30/21 11:39 01/30/21 20:34 Cyclobenzaprine Hcl 10 Mg Tablet PO 10 mg BID PRN Administration Muscle Spasm Doxycycline Hyclate 100 mg 01/26/21 21:00 01/30/21 20:17 Doxycycline Hyclate 100 Mg Tablet PO 100 mg BID [facility] Administration Famotidine 20 mg 01/28/21 13:52 Famotidine 20 Mg Tablet PO DAILY PRN heartburn Hydroxyzine HCl 25 mg 01/28/21 16:59 01/29/21 09:55 Hydroxyzine Hcl 25 Mg Tablet PO 25 mg TID PRN Administration Anxiety Insulin Glargine 45 unit 01/26/21 21:00 01/30/21 20:17 Insulin Glargine,Hum.Rec.Anlog 100 Unit/Ml 10 Ml Vial SUBCUT 45 unit BID [facility] Administration Magnesium Hydroxide 30 ml 01/28/21 16:59 01/30/21 20:34 Milk Of Magnesia 30 Ml Oral.Susp PO 30 ml DAILY PRN Administration Constipation Nicotine Polacrilex 4 mg 01/28/21 16:59 Nicotine Polacrilex 2 Mg Gum BUCCAL Q2H PRN Nicotine Cravings Trazodone HCl 50 mg 01/28/21 16:59 Trazodone Hcl 50 Mg Tablet PO BEDTIME PRN Insomnia Ziprasidone 20 mg 01/30/21 21:00 01/30/21 20:17 Ziprasidone 20 Mg Capsule PO 20 mg BEDTIME [facility] Administration Allergies Allergies Allergy/AdvReac Type Severity Reaction Status Date / Time insulin aspart [From Novolog] Allergy Unknown HYPOGLYCMEI Unverified 01/26/21 13:01 A Novolog Allergy Unknown Itchy Eyes Uncoded 01/26/21 13:01 Assessment & Plan Assessment & Plan (1) Schizoaffective disorder, depressive type: Status: Acute Code(s): F25.1 - Schizoaffective disorder, depressive type Assessment and Plan: Impression: Patient is a 60-year-old female with history of depression, trauma, AH and prior inpatient admissions who presents for increased anxiety. Patient reports long history of auditory hallucinations with intermittent bouts of depression and meets criteria for schizoaffective disorder. She reports recent exacerbation of bothersome anxiety but denies any other manic symptoms; anxiety seems to have resolved with a single dose of Ativan received in the emergency room. Patient denies any SI. Crisis team reports patient expressed SI, though narrative writer called to clarify and SW reports pt's SI was passive only. Currently patient is stable and calm. She says she has not had auditory hallucinations, voices, since admission however there are chronic, bothersome and she is considering a medication for this. She says she will probably only need to stay a few days. Patient remains stable; patient asks for discharge tomorrow same day 3 days due. She is in a good mood, with bright affect, no SI and future oriented. Current lead denies any auditory hallucinations. She reports anxiety remains resolved and she is sleeping well. Patient is not in imminent risk of harm to self or others and request for discharge honored. Plan Signed a 3 day Patient signed a CV 15 minutes checks Continue home medications Start ziprasidone 20 mg at bedtime for AH; patient wants only lowest dose and at bedtime in case sedating Auto Electrical Technician discussed risks/side effects of Ziprasidone; patient communicated understanding of benefits, risks and side-effects of medications and wants to continue with regimen. Greater than 50% of the session was spent on counseling and/or coordination of care Reason for contiued inpatient stay Substantial Risk for: stable for discharge
[2021-01-31] MEDS: Insulin Glargine,Hum.rec.anlog 100 UNIT/ML 10 ML VIAL 45 UNIT SUBCUT ×2 (09:47→21:09)
[2021-01-31] MEDS: Acetaminophen 325 MG TABLET 650 MG PO (09:53)
[2021-01-31 12:45] VITALS: BMI 41.5
--- NOTE | 2021-01-31 15:46 | P.DS_ITS ---
DS: Providers Provider Date of Service: 01/31/21 Date of admission: 01/28/21 13:40 Date of discharge: 01/31/21 Primary care physician: None Physician Admitting clinician: Fantasma Lorenzana Attending physician on discharge: Fantasma Lorenzana DS: Diagnosis Discharge Diagnosis (1) Schizoaffective disorder, depressive type: Status: Chronic DS: Medications Discharge Medications Home Medications: Home Medications Medication Instructions Recorded Confirmed Eliquis 1 tab PO DAILY 01/26/21 01/26/21 Lantus Solostar U-100 Insulin 45 unit SUBCUT BID 01/26/21 01/26/21 doxycycline hyclate 1 cap PO BID 01/26/21 01/26/21 rosuvastatin 1 tab PO BEDTIME 01/26/21 01/26/21 Previous Rx's Medication Instructions Recorded cyclobenzaprine 10 mg PO BID PRN 30 Days #30 tab 01/31/21 ziprasidone HCl 20 mg PO BEDTIME 30 Days #30 cap 01/31/21 Discharge Plan Discharge Patient Disposition: [facility] Discharge Diagnosis: Schizoaffective disorder, depressed type, in full remission Referrals: [facility] [Other] (Walk In if needed) [facility] (therapy intake) [Other] - 02/12/21 11:00 am (In-person appointment) Dr. Gatica (psychiatrist) [Other] - 02/28/21 3:00 pm ([facility] Discharge Medications: New ziprasidone HCl 20 mg Capsule 20 mg PO BEDTIME 30 Days Qty: 30 RF: 0 Continued rosuvastatin 20 mg tablet 1 tab PO BEDTIME RF: 0 Lantus Solostar U-100 Insulin 100 unit/mL (3 mL) insulin pen 45 unit subcut BID RF: 0 doxycycline hyclate 100 mg capsule 1 cap PO BID RF: 0 Changed cyclobenzaprine 10 mg tablet 10 mg PO BID PRN (Reason: Pain) 30 Days Qty: 30 RF: 0 Discharge Orders: Discharge Order (Routine); Ordered 02/01/21 Ordered By: Fantasma Lorenzana Diet: diabetic diet Activity on Discharge: As tolerated Stand Alone Forms: Patient Portal Discharge page, Community Support Care Plan Goals: Maintain mood and safe behaviors Take medications as prescribed Practice coping skills Continue with outpatient providers and reach out to them as needed Health Concerns: Mood instability and behaviors Depression and anxiety diabetes Plan of Treatment: see a PCP regarding regarding diabetes Take medications as prescribed Ziprasidone is for bothersome voices Assessment: Risk assessment: Patient has been observed closely by nursing and unit staff throughout admission; patient has not engaged in any behaviors that suggest dangerousness to self or others and has demonstrated appropriate behaviors and impulse control. Patient was interviewed prior to discharge and found to be fully oriented and without any SI or HI. Patient has insight and demonstrates good judgment in terms of wanting to pursue treatment. Patient is not in imminent risk of harm to self or others and has a safety plan that includes presenting to the closest ER or calling 911 if feeling unsafe. Discharge Date/Time: 02/01/21 10:25 Mental Status Exam Mental Status Exam Narrative: Pt is alert and oriented; behavior is cooperative, friendly and calm; patient is not in distress; dressed in casual attire, no scarf, with adequate hygiene; mood is described as good and affect congruent; eye contact appropriate; Speech is normal rate, volume and prosody and not pressured; no psychomotor agitation/retardation present; thought process is organized, linear, logical and goal directed. Thought content is on discharge and is pertinent to relevant topics and without any delusional content (other than those associated with chronic AH), paranoid ideations or grandiosity; denies any SI/HI. Current radiation denies auditory hallucinations. There is no evidence of perceptual disturbance. Patient has some struggles with insight, and reports the auditory hallucinations are real: otherwise insight and judgment appear relatively intact. Data Data Completed and Pending Completed studies during hospitalization [Text1]: 01/26/21 01/26/21 01/26/21 10:30 10:30 10:57 WBC 6.2 RBC 4.53 Hgb 11.7 L Hct 37.7 MCV 83.2 MCH 25.8 L MCHC 31.0 RDW 13.5 Plt Count 319 MPV 10.0 Immature Gran % (Auto) 0.3 Neut % (Auto) 61.8 Lymph % (Auto) 29.9 [place] % (Auto) 5.4 Eos % (Auto) 2.3 Baso % (Auto) 0.3 Lymph # (Auto) 1.8 [place] # (Auto) 0.3 Eos # (Auto) 0.1 Baso # (Auto) 0.0 Abs Immat Gran (auto) 0.02 Absolute Neuts (auto) 3.8 Absolute Nucleated RBC 0.000 Nucleated RBC % (auto) 0.0 PT INR Sodium Potassium Chloride Carbon Dioxide Anion Gap BUN Creatinine Estim Creat Clear Calc Estimated GFR POC Glucose Random Glucose Calcium Magnesium Total Bilirubin Direct Bilirubin AST ALT Alkaline Phosphatase Troponin I High Sens Total Protein Albumin Urine Color YELLOW Urine Appearance CLEAR Urine pH 6.0 Ur Specific [place] >= 1.030 H Urine Protein NEG Urine Glucose (UA) NEG Urine Ketones NEG Urine Blood NEG Urine Nitrite NEG Ur Leukocyte Esterase NEG Urine Test Urine Opiates Screen Not Detected Ur Barbiturates Screen Not Detected Ur Phencyclidine Scrn Not Detected Ur Amphetamines Screen Not Detected U Benzodiazepines Scrn Not Detected Urine Cocaine Screen Not Detected U Marijuana (THC) Screen Not Detected Ethyl Alcohol COVID-19 (NOHEMI) COVWineDemon 01/26/21 01/26/21 01/26/21 10:57 10:57 10:57 WBC RBC Hgb Hct MCV MCH MCHC RDW Plt Count MPV Immature Gran % (Auto) Neut % (Auto) Lymph % (Auto) [place] % (Auto) Eos % (Auto) Baso % (Auto) Lymph # (Auto) [place] # (Auto) Eos # (Auto) Baso # (Auto) Abs Immat Gran (auto) Absolute Neuts (auto) Absolute Nucleated RBC Nucleated RBC % (auto) PT 13.8 H INR 1.2 H Sodium Potassium Chloride Carbon Dioxide Anion Gap BUN Creatinine Estim Creat Clear Calc Estimated GFR POC Glucose Random Glucose Calcium Magnesium Total Bilirubin Direct Bilirubin AST ALT Alkaline Phosphatase Troponin I High Sens < 3.5 Total Protein Albumin Urine Color Urine Appearance Urine pH Ur Specific [place] Urine Protein Urine Glucose (UA) Urine Ketones Urine Blood Urine Nitrite Ur Leukocyte Esterase Urine Test Urine Opiates Screen Ur Barbiturates Screen Ur Phencyclidine Scrn Ur Amphetamines Screen U Benzodiazepines Scrn Urine Cocaine Screen U Marijuana (THC) Screen Ethyl Alcohol < 10 COVID-19 (NOHEMI) COVID-19 LiquidM 01/26/21 01/26/21 01/26/21 10:58 20:59 22:56 WBC RBC Hgb Hct MCV MCH MCHC RDW Plt Count MPV Immature Gran % (Auto) Neut % (Auto) Lymph % (Auto) [place] % (Auto) Eos % (Auto) Baso % (Auto) Lymph # (Auto) [place] # (Auto) Eos # (Auto) Baso # (Auto) Abs Immat Gran (auto) Absolute Neuts (auto) Absolute Nucleated RBC Nucleated RBC % (auto) PT INR Sodium 141 Potassium 4.0 Chloride 105 Carbon Dioxide 26 Anion Gap 14 BUN 13 Creatinine 0.76 Estim Creat Clear Calc 91.4 Estimated GFR > 60 POC Glucose 281 H Random Glucose 117 H Calcium 9.8 Magnesium 1.8 Total Bilirubin 0.6 Direct Bilirubin 0.2 AST 18 ALT 20 Alkaline Phosphatase 72 Troponin I High Sens Total Protein 7.2 Albumin 4.2 Urine Color Urine Appearance Urine pH Ur Specific [place] Urine Protein Urine Glucose (UA) Urine Ketones Urine Blood Urine Nitrite Ur Leukocyte Esterase Urine Test Urine Opiates Screen Ur Barbiturates Screen Ur Phencyclidine Scrn Ur Amphetamines Screen U Benzodiazepines Scrn Urine Cocaine Screen U Marijuana (THC) Screen Ethyl Alcohol COVID-19 (NOHEMI) Negative COVID-NightstaRx See Note 01/27/21 01/27/21 01/28/21 08:41 20:29 12:44 WBC RBC Hgb Hct MCV MCH MCHC RDW Plt Count MPV Immature Gran % (Auto) Neut % (Auto) Lymph % (Auto) [place] % (Auto) Eos % (Auto) Baso % (Auto) Lymph # (Auto) [place] # (Auto) Eos # (Auto) Baso # (Auto) Abs Immat Gran (auto) Absolute Neuts (auto) Absolute Nucleated RBC Nucleated RBC % (auto) PT INR Sodium Potassium Chloride Carbon Dioxide Anion Gap BUN Creatinine Estim Creat Clear Calc Estimated GFR POC Glucose 171 H 261 H 207 H Random Glucose Calcium Magnesium Total Bilirubin Direct Bilirubin AST ALT Alkaline Phosphatase Troponin I High Sens Total Protein Albumin Urine Color Urine Appearance Urine pH Ur Specific [place] Urine Protein Urine Glucose (UA) Urine Ketones Urine Blood Urine Nitrite Ur Leukocyte Esterase Urine Test Urine Opiates Screen Ur Barbiturates Screen Ur Phencyclidine Scrn Ur Amphetamines Screen U Benzodiazepines Scrn Urine Cocaine Screen U Marijuana (THC) Screen Ethyl Alcohol COVID-19 (NOHEMI) COVID-NightstaRx 01/28/21 01/29/21 01/29/21 18:23 05:39 20:58 WBC RBC Hgb Hct MCV MCH MCHC RDW Plt Count MPV Immature Gran % (Auto) Neut % (Auto) Lymph % (Auto) [place] % (Auto) Eos % (Auto) Baso % (Auto) Lymph # (Auto) [place] # (Auto) Eos # (Auto) Baso # (Auto) Abs Immat Gran (auto) Absolute Neuts (auto) Absolute Nucleated RBC Nucleated RBC % (auto) PT INR Sodium Potassium Chloride Carbon Dioxide Anion Gap BUN Creatinine Estim Creat Clear Calc Estimated GFR POC Glucose 237 H 147 H 245 H Random Glucose Calcium Magnesium Total Bilirubin Direct Bilirubin AST ALT Alkaline Phosphatase Troponin I High Sens Total Protein Albumin Urine Color Urine Appearance Urine pH Ur Specific [place] Urine Protein Urine Glucose (UA) Urine Ketones Urine Blood Urine Nitrite Ur Leukocyte Esterase Urine Test Urine Opiates Screen Ur Barbiturates Screen Ur Phencyclidine Scrn Ur Amphetamines Screen U Benzodiazepines Scrn Urine Cocaine Screen U Marijuana (THC) Screen Ethyl Alcohol COVID-19 (NOHEMI) COVID-NightstaRx 01/30/21 01/30/21 01/30/21 05:59 10:40 11:31 WBC RBC Hgb Hct MCV MCH MCHC RDW Plt Count MPV Immature Gran % (Auto) Neut % (Auto) Lymph % (Auto) [place] % (Auto) Eos % (Auto) Baso % (Auto) Lymph # (Auto) [place] # (Auto) Eos # (Auto) Baso # (Auto) Abs Immat Gran (auto) Absolute Neuts (auto) Absolute Nucleated RBC Nucleated RBC % (auto) PT INR Sodium Potassium Chloride Carbon Dioxide Anion Gap BUN Creatinine Estim Creat Clear Calc Estimated GFR POC Glucose 125 H 229 H Random Glucose Calcium Magnesium Total Bilirubin Direct Bilirubin AST ALT Alkaline Phosphatase Troponin I High Sens Total Protein Albumin Urine Color Urine Appearance Urine pH Ur Specific [place] Urine Protein Urine Glucose (UA) Urine Ketones Urine Blood Urine Nitrite Ur Leukocyte Esterase Urine Test NEGATIVE Urine Opiates Screen Ur Barbiturates Screen Ur Phencyclidine Scrn Ur Amphetamines Screen U Benzodiazepines Scrn Urine Cocaine Screen U Marijuana (THC) Screen Ethyl Alcohol COVID-19 (NOHEMI) COVID-19 LiquidM 01/30/21 16:59 WBC RBC Hgb Hct MCV MCH MCHC RDW Plt Count MPV Immature Gran % (Auto) Neut % (Auto) Lymph % (Auto) [place] % (Auto) Eos % (Auto) Baso % (Auto) Lymph # (Auto) [place] # (Auto) Eos # (Auto) Baso # (Auto) Abs Immat Gran (auto) Absolute Neuts (auto) Absolute Nucleated RBC Nucleated RBC % (auto) PT INR Sodium Potassium Chloride Carbon Dioxide Anion Gap BUN Creatinine Estim Creat Clear Calc Estimated GFR POC Glucose 234 H Random Glucose Calcium Magnesium Total Bilirubin Direct Bilirubin AST ALT Alkaline Phosphatase Troponin I High Sens Total Protein Albumin Urine Color Urine Appearance Urine pH Ur Specific [place] Urine Protein Urine Glucose (UA) Urine Ketones Urine Blood Urine Nitrite Ur Leukocyte Esterase Urine Test Urine Opiates Screen Ur Barbiturates Screen Ur Phencyclidine Scrn Ur Amphetamines Screen U Benzodiazepines Scrn Urine Cocaine Screen U Marijuana (THC) Screen Ethyl Alcohol COVID-19 (NOHEMI) COVID-19 Clin Com Imaging Diagnostic Imaging Impressions Head CT 01/26/21 10:39 IMPRESSION: 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 Old lacunar infarct left basal ganglia. Region of diminished density without significant edema about the high right parietal lobe which may be related to an acute or chronic infarct. Brain MRI 01/26/21 12:15 IMPRESSION: 1. No acute intracranial abnormalities. 2. Moderate underlying nonspecific white matter disease. DS: Summary Hospital Course Hospital Course: Patient is a 60-year-old female with history of depression, trauma, AH and prior inpatient admissions who presents for increased anxiety. Pt admitted on CV. On admission, pt reported anxiety had resolved after a single dose of Ativan received in the emergency room; she denied any depression or SI but says she has chronic AH which are bothersome. Pt denies any other manic symptoms or substance abuse. Although she was w/out AH during admission, she wanted to try a medication since they are chronic and she believes will return. Joint Setter reviewed risks and side-effects of Ziprasidone; patient asked questions and understood and decided she felt good about trying this med which was started. Patient continued to deny any suicidal or homicidal ideation during admission and demonstrated appropriate behaviors and impulse control on the unit. She felt she was doing well, back to her normal self and signed a 3 day notice. Pt was in a good mood, with bright affect, w/out depression or SI, no AH and future focused. Her anxiety remained resolved and she was sleeping well. Patient was not in imminent risk of harm to self or others and request for discharge honored. pt reported she did not need refills on meds, having adequate supply Status at Discharge Cognitive/behavioral status at discharge: Risk assessment at time of discharge: Patient has been observed closely by nursing and unit staff throughout admission; patient has not engaged in any behaviors that suggest dangerousness to self or others and has demonstrated appropriate behaviors and impulse control. Patient was interviewed prior to discharge and found to be fully oriented and without any SI or HI. Patient has insight and demonstrates good judgment in terms of wanting to pursue treatment. Patient is not in imminent risk of harm to self or others and has a safety plan that includes presenting to the closest ER or calling 911 if feeling unsafe. Functional status at discharge: independent ambulation Overall status at discharge: patient is back to baseline Time Spent with Patient Time attestation: Total time spent providing and/or coordinating discharge services: Time spent: Greater than 30 minutes
[2021-01-31 16:16] VITALS: BP 131/82; PULSE 90; RESP 18; TEMP 36; O2SAT 95
[2021-01-31 16:55] LABS: Glucose, Whole Blood 269 mg/dL (60-115)
[2021-01-31 21:03] LABS: Glucose, Whole Blood 294 mg/dL (60-115)
[2021-01-31] MEDS: Cyclobenzaprine HCl 10 MG TABLET PO (21:08)
[2021-01-31] MEDS: Ziprasidone 20 MG CAPSULE PO (21:15)
[2021-02-01 06:00] VITALS: BP 131/64; PULSE 107; RESP 18; TEMP 36.2; O2SAT 95
[2021-02-01] MEDS: Insulin Glargine,Hum.rec.anlog 100 UNIT/ML 10 ML VIAL 45 UNIT SUBCUT (09:07)
[2021-02-01 09:18] LABS: Glucose, Whole Blood 153 mg/dL (60-115)
== END 2021-02-01 10:25 | disposition home or self-care (01) | DRG 885 ==
LOC: HO.ED 10:37 → HO.PM5 01-28 13:40
PROVIDERS: Nurse Practitioner Family; Admitting Provider Psychiatry & Neurology Psychiatry; Emergency Provider Emergency Medicine; Visit Provider Psychiatry & Neurology Psychiatry
DX: F25.1 Schizoaffective disorder, depressive type (principal); R45.851 Suicidal ideations; F41.9 Anxiety disorder, unspecified; Z20.822 Contact with and (suspected) exposure to COVID-19; Z86.73 Personal history of transient ischemic attack (TIA), and cerebral infarction without residual deficits; Z79.4 Long term (current) use of insulin; Z79.899 Other long term (current) drug therapy
CPT/HCPCS: 36415; 70450; 70551; 80048; 80076; 80307; 80320; 81003; 81025; 82947; 83735; 84484; 85025; 85610; 87635; 93005; 96372; 99285

== ENCOUNTER 2021-02-01 10:39 | Emergency (ER) | payer MEDICARE, MEDICAID, SELFPAY ==
[2021-02-01 11:21] VITALS: BP 152/87; PULSE 100; RESP 18; TEMP 37; O2SAT 100; BMI 37.1
--- NOTE | 2021-02-01 11:46 | ED_ITS ---
HPI - Female Genitourinary General Chief complaint: Urogenital-Female Stated complaint: QUEST STD Time Seen by Provider: 02/01/21 11:14 Source: patient Mode of arrival: ambulatory Limitations: no limitations History of Present Illness HPI Narrative: 60 y/o female presenting with vaginal discharge and burning for the last 4 days after she had a known exposure to gonorrhea and chlamydia almost 2 weeks ago. She states the vaignal discharge is slimy in texture and off white in color. No foul odor. No thick curd like discharge. No dysuria or urinary symptoms. No pelvic or abdominal pain. No fevers. MD elicited complaint: vaginal discharge Onset (ago): day(s) (4) Location of symptoms: external genitalia and vaginal Severity: moderate Female Urogenital Radiation: Non-Radiating Severity scale (1-10): 4 Quality of pain: burning Consistency: constant Vaginal discharge: white Vaginal bleeding: moderate Exacerbating factors: none Relieving factors: none Associated symptoms: denies other symptoms Treatment prior to arrival: none Sexual activity: Yes Patient : No Related Data Home Medications Medication Instructions Recorded Confirmed Eliquis 1 tab PO DAILY 01/26/21 01/26/21 Lantus Solostar U-100 Insulin 45 unit SUBCUT BID 01/26/21 01/26/21 doxycycline hyclate 1 cap PO BID 01/26/21 01/26/21 rosuvastatin 1 tab PO BEDTIME 01/26/21 01/26/21 Previous Rx's Medication Instructions Recorded cyclobenzaprine 10 mg PO BID PRN 30 Days #30 tab 01/31/21 ziprasidone HCl 20 mg PO BEDTIME 30 Days #30 cap 01/31/21 doxycycline monohydrate 100 mg PO BID #14 tab 02/01/21 Allergies Allergy/AdvReac Type Severity Reaction Status Date / Time insulin aspart [From Novolog] Allergy Unknown [id number] Unverified 01/26/21 13:01 A Novolog Allergy Unknown Itchy Eyes Uncoded 01/26/21 13:01 Review of Systems Review of Systems: Constitutional: No Fever, No Chills Gastrointestinal: No Nausea, No Vomiting, No Diarrhea, No abdominal Pain Genitourinary: No Dysuria, No Urinary Frequency, No Hematuria, +Vaginal discharge Musculoskeletal: No joint pain, No Myalgias Skin: No Skin Lesions, No rash Psych: + Anxiety/Panic, No Depression Heme/Lymph: No Bruising, No Lymphadenopathy Endocrine: No Polyuria, No Polydipsia [facility] Past Medical History Attestation statement: The following information was validated with the patient. Medical History CVA (cerebral vascular accident) Diabetes Schizoaffective disorder, depressive type Surgical History (Updated 02/01/21 @ 11:25 by Sydni Barton) H/O: hysterectomy Social History Social History Household Members: None Household Members Other:: patient reports being alone and homeless for 17 years Housing: Homeless Do you presently have visiting nurse or other home services: No Second Hand Smoke Exposure: No Advance Directives: Yes Advance Directives Information Provided: Yes Advance Directives on File: No Patient : No service: No Sexual orientation: did not discuss. Physical Exam Vital Signs: Vital Signs: Last Vital Signs Temp 98.6 F 02/01/21 11:21 Pulse 100 02/01/21 11:21 Resp 18 02/01/21 11:21 BP 152/87 H 02/01/21 11:21 Pulse Ox 100 02/01/21 11:21 Body Mass Index 37.1 Appearance: Alert. Oriented X3. No acute distress. Eyes: Pupils equal, round and reactive to light. ENT: Pharynx normal. Neck: Normal inspection. Neck supple. CVS: Normal heart rate and rhythm. Pulses normal. Respiratory: No respiratory distress. Breath sounds normal. Abdomen: Obese, Soft and nontender. +BS x4. Pelvic exam declined. Skin: Skin warm and dry. Normal skin color. Normal skin turgor. No rashes. Extremities: No lower extremity edema. Neuro: Oriented X 3. No motor deficit. No sensory deficit. Course Course Course Narrative: 60 y/o female presenting with 4 days of vaginal discharge and burning in the setting of known STI exposure. Pelvic declined - wanting to self swb or get urine test. UA and CT/NG PCR by urine were ordered. Her partner is known to be gonorrhea and chlamydia positive - will treat empirically with Rocephin IM and Zithromycin. Will d/c with PO doxycycline. UA sent to r/o UTI. Reevaluation(s) Reevaluation #1: UA negative. Patient counseled. Stable for discharge. MDM - Female Genitourinary Lab Data Labs: Lab Results 02/01/21 Range/Units 11:51 Urine Color YELLOW Urine Appearance CLEAR Urine pH 6.0 (5.0-8.0) Ur Specific [place] >= 1.030 H (1.005-1.025) Urine Protein NEG (NEG-TRACE) MG/DL Urine Glucose (UA) NEG (NEG) MG/DL Urine Ketones NEG (NEG) MG/DL Urine Blood NEG (NEG) Urine Nitrite NEG (NEG) Ur Leukocyte Esterase NEG (NEG) Critical Care Time Critical Care Time Critical Care Time: No Discharge Plan Discharge Clinical Impression: STI (sexually transmitted infection) Patient Disposition: Home, Self-Care Instructions: Chlamydia (ED), Gonorrhea (ED) Additional Instructions: Your urine test was negative for infection. You are being treated for Gonorrhea and Chlamydia. Your tests were sent to the lab, we will contact you if they come back positive. Follow up with one of the [facility] on the list provided to you. Prescriptions: New doxycycline monohydrate 100 mg tablet 100 mg PO BID Qty: 14 RF: 0 No Action rosuvastatin 20 mg tablet 1 tab PO BEDTIME RF: 0 Lantus Solostar U-100 Insulin 100 unit/mL (3 mL) insulin pen 45 unit subcut BID RF: 0 Eliquis 5 mg tablet 1 tab PO DAILY RF: 0 doxycycline hyclate 100 mg capsule 1 cap PO BID RF: 0 ziprasidone HCl 20 mg Capsule 20 mg PO BEDTIME 30 Days Qty: 30 RF: 0 cyclobenzaprine 10 mg tablet 10 mg PO BID PRN (Reason: Pain) 30 Days Qty: 30 RF: 0
[2021-02-01 12:01] LABS: Glucose Urine UA NEG (NEG); Leukocyte Esterase Urine NEG (NEG); Nitrite Urine NEG (NEG); Specific Gravity - Urine >= 1.030 (1.005-1.025); Urine Blood NEG (NEG); Urine Ketones NEG (NEG); Urine Protein NEG (NEG-TRACE)
[2021-02-01 12:02] LABS: Appearance Urine CLEAR; Color Urine YELLOW
[2021-02-01] MEDS: Azithromycin 500 MG TABLET 1000 MG PO (12:13)
[2021-02-01] MEDS: cefTRIAXone sodium 500 MG, Lidocaine HCl 1 % MPF 1 ML IM (12:15)
[2021-02-01 14:08] LABS: CT PCR NOT DETECTED (Not Detect.); NG PCR NOT DETECTED (Not Detect.)
== END 2021-02-01 12:22 | disposition home or self-care (01) ==
PROVIDERS: Physician Assistant; Emergency Provider Emergency Medicine
DX: N89.8 Other specified noninflammatory disorders of vagina (principal); Z20.2 Contact with and (suspected) exposure to infections with a predominantly sexual mode of transmission; E11.9 Type 2 diabetes mellitus without complications; Z86.73 Personal history of transient ischemic attack (TIA), and cerebral infarction without residual deficits; F25.1 Schizoaffective disorder, depressive type; Z79.4 Long term (current) use of insulin; Z79.02 Long term (current) use of antithrombotics/antiplatelets; Z79.899 Other long term (current) drug therapy
CPT/HCPCS: 81003; 87491; 87591; 96372; 99283; 99284; J0696

== ENCOUNTER 2021-02-02 12:59 | Emergency (ER) | payer MEDICARE, MEDICAID, SELFPAY ==
--- NOTE | ~2021-02-02 | XR_ITS ---
EXAMINATION: XR CHEST CLINICAL INFORMATION: Chest pain COMPARISON: None TECHNIQUE: 2 views of the chest were obtained. FINDINGS: No significant abnormality is noted involving the heart, lungs, mediastinum, bony thorax or soft tissues. XR/XR chest 2V IMPRESSION: Unremarkable chest examination.
--- NOTE | 2021-02-02 13:16 | ECG_ITS ---
Test Reason : CP Blood Pressure : / mmHG Vent. Rate : 087 BPM Atrial Rate : 087 BPM P-R Int : 138 ms QRS Dur : 078 ms QT Int : 352 ms P-R-T Axes : 063 018 041 degrees QTc Int : 423 ms Normal sinus rhythm Nonspecific ST abnormality Borderline ECG When compared with ECG of 26-JAN-2021 11:01, No significant change was found Referred By: Yuli Billy Electronically Signed By:SHILO DE LA GARZA
[2021-02-02 13:18] VITALS: BP 166/90; PULSE 86; RESP 18; TEMP 37.1; O2SAT 99; BMI 36.0
--- NOTE | 2021-02-02 13:35 | ED.CHESTPAIN ---
HPI - Chest Pain General Chief Complaint: Chest Pain <Rubio Neil NP - Last Filed: 02/02/21 16:53> Stated Complaint: chest pain <Rubio Neil NP - Last Filed: 02/02/21 16:53> Time Seen by Provider: 02/02/21 13:06 <Rubio Neil NP - Last Filed: 02/02/21 16:53> Source: patient and family <Rubio Neil NP - Last Filed: 02/02/21 16:53> Mode of arrival: EMS <Rubio Neil NP - Last Filed: 02/02/21 16:53> Limitations: no limitations <Rubio Neil NP - Last Filed: 02/02/21 16:53> History of Present Illness HPI narrative: 60-year-old female with a past medical history of CVA, schizophrenia, diabetes here with complaints of chest discomfort x2 hours and generalized headache. Of note, the patient was discharged from inpatient psych 2 days ago. The patient tells me that she was there for several days but voluntarily left because she was feeling better. Now she tells me that she does not feel like she should have left because she is still having some depression and would like to go upstairs. No associated shortness of breath, nausea, diaphoresis, dizziness with the above symptoms. <Rubio Neil NP - Last Filed: 02/02/21 16:53> Related Data Home Medications: Home Medications Medication Instructions Recorded Confirmed Lantus Solostar U-100 Insulin 45 unit SUBCUT BID 01/26/21 02/02/21 doxycycline hyclate 1 cap PO BID 01/26/21 02/02/21 rosuvastatin 1 tab PO BEDTIME 01/26/21 02/02/21 Previous Rx's Medication Instructions Recorded cyclobenzaprine 10 mg PO BID PRN 30 Days #30 tab 01/31/21 ziprasidone HCl 20 mg PO BEDTIME 30 Days #30 cap 01/31/21 <Rubio Neil NP - Last Filed: 02/02/21 16:53> Allergies/Adverse Reactions: Allergies Allergy/AdvReac Type Severity Reaction Status Date / Time insulin aspart [From Novolog] Allergy Unknown [id number] Unverified 01/26/21 13:01 A Novolog Allergy Unknown Itchy Eyes Uncoded 01/26/21 13:01 <Rubio Neil NP - Last Filed: 02/02/21 16:53> Review of Systems Review of Systems: Yes all other systems are reviewed and are negative <Rubio Neil NP - Last Filed: 02/02/21 16:53> Constitutional: Constitutional: Reports no additional constitutional complaints, Denies body ache(s), Denies chills, Denies fever(s), Reports headache(s) and Denies weakness <Rubio Neil NP - Last Filed: 02/02/21 16:53> Eyes: Eyes: Reports no additional eye complaints and Denies change in vision <Rubio Neil NP - Last Filed: 02/02/21 16:53> ENT: Reports system reviewed and no additional complaints, except as documented, Denies dizziness, Reports headache(s), Denies nasal congestion, Denies nasal discharge and Denies neck pain <Rubio Neil NP - Last Filed: 02/02/21 16:53> Cardiovascular: Cardiovascular: Reports no additional cardiovascular complaints, Reports chest pain, Denies leg edema and Denies dyspnea <Rubio Neil NP - Last Filed: 02/02/21 16:53> Respiratory: Respiratory: Reports no additional respiratory complaints, Denies cough and Denies dyspnea <Rubio Neil NP - Last Filed: 02/02/21 16:53> Gastrointestinal: Gastrointestinal: Reports no additional gastrointestinal complaints, Denies abdominal pain, Denies diarrhea, Denies nausea and Denies vomiting <Rubio Neil NP - Last Filed: 02/02/21 16:53> Genitourinary: Genitourinary: Reports no additional female genitourinary complaints and Denies urinary incontinence <Rubio Neil NP - Last Filed: 02/02/21 16:53> Musculoskeletal: Musculoskeletal: Reports no additional musculoskeletal complaints, Denies back pain, Denies arthralgias, Denies joint swelling, Denies neck pain, Denies numbness and Denies tingling <Rubio Neil NP - Last Filed: 02/02/21 16:53> Integumentary/Breasts: Skin/Breast: Reports system reviewed and no additional complaints, except as docu and Denies rash <Rubio Neil NP - Last Filed: 02/02/21 16:53> Neurologic: Reports system reviewed and no additional complaints, except as documented, Denies Abnormal speech present, Denies dizziness, Reports headache(s), Denies numbness, Denies tingling and Denies weakness <Rubio Neil NP - Last Filed: 02/02/21 16:53> [facility] Past Medical History Attestation statement: The following information was validated with the patient. <Rubio Neil NP - Last Filed: 02/02/21 16:53> Source: old records reviewed and nursing notes reviewed <Rubio Neil NP - Last Filed: 02/02/21 16:53> Medical History: Medical History CVA (cerebral vascular accident) Diabetes Schizoaffective disorder, depressive type <Rubio Neil NP - Last Filed: 02/02/21 16:53> Surgical History: Surgical History H/O: hysterectomy <Rubio Neil NP - Last Filed: 02/02/21 16:53> Social History Social History: Social History Household Members: None Household Members Other:: patient reports being alone and homeless for 17 years Housing: Homeless Do you presently have visiting nurse or other home services: No Second Hand Smoke Exposure: No Advance Directives: No Advance Directives Information Provided: No Patient : No service: No Sexual orientation: did not discuss. <Rubio Neil NP - Last Filed: 02/02/21 16:53> Physical Exam Vital Signs: Vital Signs: Last Vital Signs Temp 97.7 F 02/03/21 02:00 Pulse 96 02/03/21 10:55 Resp 16 02/03/21 10:55 BP 163/84 H 02/03/21 10:55 Pulse Ox 99 02/03/21 10:55 Body Mass Index 36.0 <Rubio Neil NP - Last Filed: 02/02/21 16:53> Vital Signs: Last Vital Signs Temp 97.7 F 02/03/21 02:00 Pulse 96 02/03/21 10:55 Resp 16 02/03/21 10:55 BP 163/84 H 02/03/21 10:55 Pulse Ox 99 02/03/21 10:55 Body Mass Index 36.0 <AD Youssef - Last Filed: 02/03/21 13:15> Const: General: cooperative, healthy appearing, comfortable and no acute distress <Rubio Neil NP - Last Filed: 02/02/21 16:53> Orientation/consciousness: patient oriented x3 <Rubio Neil NP - Last Filed: 02/02/21 16:53> Limitations: no limitations <Rubio Neil NP - Last Filed: 02/02/21 16:53> HENMT: Head: Yes normal to inspection <Rubio Neil NP - Last Filed: 02/02/21 16:53> Ears: hearing grossly normal bilaterally <Rubio Neil NP - Last Filed: 02/02/21 16:53> General nose exam: Normal external nose present <Rubio Neil NP - Last Filed: 02/02/21 16:53> Face and sinus: Yes normal facial exam <Rubio Neil NP - Last Filed: 02/02/21 16:53> Mouth: Normal oral and palatal mucosa present <Rubio Neil NP - Last Filed: 02/02/21 16:53> Throat: Yes posterior oropharynx normal <Rubio Neil NP - Last Filed: 02/02/21 16:53> Eyes: General: appearance normal, both eyes and all related structures <Rubio Neil NP - Last Filed: 02/02/21 16:53> Pupils: Equal, round and reactive pupils present <Rubio Neil NP - Last Filed: 02/02/21 16:53> Neck: Neck: Yes normal visual inspection <Rubio Neil NP - Last Filed: 02/02/21 16:53> Chest: Chest palpation & inspection: normal inspection of the chest <Rubio Neil NP - Last Filed: 02/02/21 16:53> Resp: Effort & Inspection: normal respiratory effort <Rubio Neil NP - Last Filed: 02/02/21 16:53> Auscultation: clear to auscultation bilaterally <Rubio Neil NP - Last Filed: 02/02/21 16:53> Cardio: Rate: regular rate <Rubio Neil NP - Last Filed: 02/02/21 16:53> Rhythm: regular rhythm <Rubio Neil NP - Last Filed: 02/02/21 16:53> Peripheral pulses: Peripheral pulses 2+ throughout <Rubio Neil NP - Last Filed: 02/02/21 16:53> GI: Inspection: Yes normal to inspection <Rubio Neil NP - Last Filed: 02/02/21 16:53> Palpation (GI): Soft to palpation and nontender <Rubio Neil NP - Last Filed: 02/02/21 16:53> Auscultation: normal bowel sounds <Rubio Neil NP - Last Filed: 02/02/21 16:53> Back/Spine/Pelvis: Thoracic/Lumbar Spine: thoracic and lumbar spine normal to inspection <Rubio Neil NP - Last Filed: 02/02/21 16:53> Skin: General skin exam: no rashes or lesions noted <Rubio Neil NP - Last Filed: 02/02/21 16:53> Neuro: General: patient oriented x3, no focal motor deficits and normal sensation to monofilament <Rubio Neil NP - Last Filed: 02/02/21 16:53> Cranial nerves: Yes CN's II-XII intact bilaterally, Yes Equal, round and reactive pupils present, Yes Bilaterally intact EOM present, Yes Nystagmus not present, Yes Normal facial strength present and Yes Midline tongue present <Rubio Neil NP - Last Filed: 02/02/21 16:53> Cognition (Neuro): normal cognition <Rubio Neil NP - Last Filed: 02/02/21 16:53> Speech: No Abnormal speech present <Rubio Neil NP - Last Filed: 02/02/21 16:53> Gait exam (Neuro): Normal gait present <Rubio Neil NP - Last Filed: 02/02/21 16:53> Motor exam (neuro): 5/5 motor strength present throughout <Rubio Neil NP - Last Filed: 02/02/21 16:53> Sensory Exam: Normal double simultaneous stimulation for sensation <Rubio Neil NP - Last Filed: 02/02/21 16:53> Coordination: [id number] test normal, [id number] test normal and tandem gait normal <Rubio Neil NP - Last Filed: 02/02/21 16:53> Extrem: General: Yes normal to inspection, Yes no pedal edema and Yes no calf tenderness <Rubio eNil NP - Last Filed: 02/02/21 16:53> Course Course Course Narrative: 60 yo female with past medical history of DM, schizophrenia and CVA here with complaints of headache and chest pressure x 2 hrs. Also complaining of depression and feeling like she is unsafe and needs to go to inpatient psych. No SI. Will check labs, EKG, chest x-ray. Once medically cleared will involve care team 1430-initial EKG, chest x-ray, labs are unremarkable. Will need repeat 3 hour troponin then care team evaluation. 1700-Sign out to Griselda GRIFFIN pending above. <Rubio Neil NP - Last Filed: 02/02/21 16:53> PHYSICIAN OBSERVATION CONTINUED. PATIENT EVALUATED BY CARE TEAM CONSULTED RUBI WHO STATES PATIENT WILL BE GOING TO [facility] WHICH IS A RESPITE FOR TREATMENT. PATIENT IS NOT SUICIDAL/HOMICIDAL. VITAL SIGNS STABLE <AD Youssef - Last Filed: 02/03/21 13:15> MDM - Chest Pain Medical Records Data Attestation: I reviewed the patient's medical records. <Rubio Neil NP - Last Filed: 02/02/21 16:53> Lab Data Attestation: I reviewed the patient's lab results. <Rubio Neil NP - Last Filed: 02/02/21 16:53> Result diagrams: : 02/02/21 13:32 02/02/21 13:32 <Rubio Neil MAINFRAME ARCHITECT - Last Filed: 02/02/21 16:53> Labs: Lab Results 02/02/21 02/02/21 02/02/21 Range/Units 13:32 13:32 13:32 WBC 6.1 (4.8-10.8) X10*3/uL RBC 4.38 (4.20-5.50) X10*6/uL Hgb 11.4 L (12.0-16.0) g/dl Hct 36.8 L (37-47) % MCV 84.0 (80-98) fL MCH 26.0 L (27.0-33.0) pg MCHC 31.0 (31.0-35.0) g/dl RDW 13.9 (11.0-16.0) % Plt Count 307 (160-400) X10*3/uL MPV 9.8 (9.4-12.3) fL Immature Gran % (Auto) 0.3 (0.0-0.4) % Neut % (Auto) 61.2 (45-73) % Lymph % (Auto) 30.1 (20-40) % Phillips % (Auto) 6.6 (2-11) % Eos % (Auto) 1.6 (0-4) % Baso % (Auto) 0.2 (0-2) % Lymph # (Auto) 1.8 (1.2-4.9) X10*3/uL Phillips # (Auto) 0.4 (0.1-1.2) X10*3/uL Eos # (Auto) 0.1 (0.0-0.4) X10*3/uL Baso # (Auto) 0.0 (0.0-0.2) X10*3/uL Abs Immat Gran (auto) 0.02 (0.00-0.03) X10*3/uL Absolute Neuts (auto) 3.7 (2.0-8.3) X10*3/uL Absolute Nucleated RBC 0.000 (0.0-0.012) X10*3/uL Nucleated RBC % (auto) 0.0 (0.0-0.2) /100WBC Sodium 140 (135-145) mmol/L Potassium 4.1 (3.3-5.1) mmol/L Chloride 104 (96-108) mmol/L Carbon Dioxide 29 (22-29) mmol/L Anion Gap 11 L (12-20) BUN 12 (9-16) mg/dL Creatinine 0.79 (0.5-1.4) mg/dL Estim Creat Clear Calc 96.4 Estimated GFR > 60 POC Glucose (60-115) mg/dL Random Glucose 197 H D (60-115) mg/dL Calcium 9.6 (8.4-10.2) mg/dL Magnesium 1.7 (1.6-2.6) mg/dL Total Bilirubin 0.4 (0.0-1.0) mg/dL Direct Bilirubin 0.2 (0.0-0.5) mg/dL AST 19 (5-31) U/L ALT 37 H (0-31) U/L Alkaline Phosphatase 82 (39-117) U/L Troponin I High Sens < 3.5 (<3.5-17.0) ng/L Total Protein 7.1 (6.5-8.0) g/dL Albumin 4.2 (3.5-5.0) g/dL Urine Opiates Screen (Not Detect) Ur Barbiturates Screen (Not Detect) Ur Phencyclidine Scrn (Not Detect) Ur Amphetamines Screen (Not Detect) U Benzodiazepines Scrn (Not Detect) Urine Cocaine Screen (Not Detect) U Marijuana (THC) Screen (Not Detect) Ethyl Alcohol mg/dL COVID-19 (NOHEMI) (Negative) COVID-19 Clin Com 02/02/21 02/02/21 02/02/21 Range/Units 13:32 16:37 16:37 WBC (4.8-10.8) X10*3/uL RBC (4.20-5.50) X10*6/uL Hgb (12.0-16.0) g/dl Hct (37-47) % MCV (80-98) fL MCH (27.0-33.0) pg MCHC (31.0-35.0) g/dl RDW (11.0-16.0) % Plt Count (160-400) X10*3/uL MPV (9.4-12.3) fL Immature Gran % (Auto) (0.0-0.4) % Neut % (Auto) (45-73) % Lymph % (Auto) (20-40) % Phillips % (Auto) (2-11) % Eos % (Auto) (0-4) % Baso % (Auto) (0-2) % Lymph # (Auto) (1.2-4.9) X10*3/uL Phillips # (Auto) (0.1-1.2) X10*3/uL Eos # (Auto) (0.0-0.4) X10*3/uL Baso # (Auto) (0.0-0.2) X10*3/uL Abs Immat Gran (auto) (0.00-0.03) X10*3/uL Absolute Neuts (auto) (2.0-8.3) X10*3/uL Absolute Nucleated RBC (0.0-0.012) X10*3/uL Nucleated RBC % (auto) (0.0-0.2) /100WBC Sodium (135-145) mmol/L Potassium (3.3-5.1) mmol/L Chloride (96-108) mmol/L Carbon Dioxide (22-29) mmol/L Anion Gap (12-20) BUN (9-16) mg/dL Creatinine (0.5-1.4) mg/dL Estim Creat Clear Calc Estimated GFR POC Glucose (60-115) mg/dL Random Glucose (60-115) mg/dL Calcium (8.4-10.2) mg/dL Magnesium (1.6-2.6) mg/dL Total Bilirubin (0.0-1.0) mg/dL Direct Bilirubin (0.0-0.5) mg/dL AST (5-31) U/L ALT (0-31) U/L Alkaline Phosphatase (39-117) U/L Troponin I High Sens < 3.5 (<3.5-17.0) ng/L Total Protein (6.5-8.0) g/dL Albumin (3.5-5.0) g/dL Urine Opiates Screen Not Detected (Not Detect) Ur Barbiturates Screen Not Detected (Not Detect) Ur Phencyclidine Scrn Not Detected (Not Detect) Ur Amphetamines Screen Not Detected (Not Detect) U Benzodiazepines Scrn Not Detected (Not Detect) Urine Cocaine Screen Not Detected (Not Detect) U Marijuana (THC) Screen Not Detected (Not Detect) Ethyl Alcohol < 10 mg/dL COVID-19 (NOHEMI) (Negative) COVID-19 Clin Com 02/02/21 02/03/21 02/03/21 Range/Units 22:03 03:11 06:55 WBC (4.8-10.8) X10*3/uL RBC (4.20-5.50) X10*6/uL Hgb (12.0-16.0) g/dl Hct (37-47) % MCV (80-98) fL MCH (27.0-33.0) pg MCHC (31.0-35.0) g/dl RDW (11.0-16.0) % Plt Count (160-400) X10*3/uL MPV (9.4-12.3) fL Immature Gran % (Auto) (0.0-0.4) % Neut % (Auto) (45-73) % Lymph % (Auto) (20-40) % Phillips % (Auto) (2-11) % Eos % (Auto) (0-4) % Baso % (Auto) (0-2) % Lymph # (Auto) (1.2-4.9) X10*3/uL Phillips # (Auto) (0.1-1.2) X10*3/uL Eos # (Auto) (0.0-0.4) X10*3/uL Baso # (Auto) (0.0-0.2) X10*3/uL Abs Immat Gran (auto) (0.00-0.03) X10*3/uL Absolute Neuts (auto) (2.0-8.3) X10*3/uL Absolute Nucleated RBC (0.0-0.012) X10*3/uL Nucleated RBC % (auto) (0.0-0.2) /100WBC Sodium (135-145) mmol/L Potassium (3.3-5.1) mmol/L Chloride (96-108) mmol/L Carbon Dioxide (22-29) mmol/L Anion Gap (12-20) BUN (9-16) mg/dL Creatinine (0.5-1.4) mg/dL Estim Creat Clear Calc Estimated GFR POC Glucose 230 H 117 H (60-115) mg/dL Random Glucose (60-115) mg/dL Calcium (8.4-10.2) mg/dL Magnesium (1.6-2.6) mg/dL Total Bilirubin (0.0-1.0) mg/dL Direct Bilirubin (0.0-0.5) mg/dL AST (5-31) U/L ALT (0-31) U/L Alkaline Phosphatase (39-117) U/L Troponin I High Sens (<3.5-17.0) ng/L Total Protein (6.5-8.0) g/dL Albumin (3.5-5.0) g/dL Urine Opiates Screen (Not Detect) Ur Barbiturates Screen (Not Detect) Ur Phencyclidine Scrn (Not Detect) Ur Amphetamines Screen (Not Detect) U Benzodiazepines Scrn (Not Detect) Urine Cocaine Screen (Not Detect) U Marijuana (THC) Screen (Not Detect) Ethyl Alcohol mg/dL COVID-19 (NOHEMI) Negative (Negative) COVID-19 Clin Com See Note <Rubio Neil NP - Last Filed: 02/02/21 16:53> Lab Results 02/02/21 02/02/21 02/02/21 Range/Units 13:32 13:32 13:32 WBC 6.1 (4.8-10.8) X10*3/uL RBC 4.38 (4.20-5.50) X10*6/uL Hgb 11.4 L (12.0-16.0) g/dl Hct 36.8 L (37-47) % MCV 84.0 (80-98) fL MCH 26.0 L (27.0-33.0) pg MCHC 31.0 (31.0-35.0) g/dl RDW 13.9 (11.0-16.0) % Plt Count 307 (160-400) X10*3/uL MPV 9.8 (9.4-12.3) fL Immature Gran % (Auto) 0.3 (0.0-0.4) % Neut % (Auto) 61.2 (45-73) % Lymph % (Auto) 30.1 (20-40) % Phillips % (Auto) 6.6 (2-11) % Eos % (Auto) 1.6 (0-4) % Baso % (Auto) 0.2 (0-2) % Lymph # (Auto) 1.8 (1.2-4.9) X10*3/uL Phillips # (Auto) 0.4 (0.1-1.2) X10*3/uL Eos # (Auto) 0.1 (0.0-0.4) X10*3/uL Baso # (Auto) 0.0 (0.0-0.2) X10*3/uL Abs Immat Gran (auto) 0.02 (0.00-0.03) X10*3/uL Absolute Neuts (auto) 3.7 (2.0-8.3) X10*3/uL Absolute Nucleated RBC 0.000 (0.0-0.012) X10*3/uL Nucleated RBC % (auto) 0.0 (0.0-0.2) /100WBC Sodium 140 (135-145) mmol/L Potassium 4.1 (3.3-5.1) mmol/L Chloride 104 (96-108) mmol/L Carbon Dioxide 29 (22-29) mmol/L Anion Gap 11 L (12-20) BUN 12 (9-16) mg/dL Creatinine 0.79 (0.5-1.4) mg/dL Estim Creat Clear Calc 96.4 Estimated GFR > 60 POC Glucose (60-115) mg/dL Random Glucose 197 H D (60-115) mg/dL Calcium 9.6 (8.4-10.2) mg/dL Magnesium 1.7 (1.6-2.6) mg/dL Total Bilirubin 0.4 (0.0-1.0) mg/dL Direct Bilirubin 0.2 (0.0-0.5) mg/dL AST 19 (5-31) U/L ALT 37 H (0-31) U/L Alkaline Phosphatase 82 (39-117) U/L Troponin I High Sens < 3.5 (<3.5-17.0) ng/L Total Protein 7.1 (6.5-8.0) g/dL Albumin 4.2 (3.5-5.0) g/dL Urine Opiates Screen (Not Detect) Ur Barbiturates Screen (Not Detect) Ur Phencyclidine Scrn (Not Detect) Ur Amphetamines Screen (Not Detect) U Benzodiazepines Scrn (Not Detect) Urine Cocaine Screen (Not Detect) U Marijuana (THC) Screen (Not Detect) Ethyl Alcohol mg/dL COVID-19 (NOHEMI) (Negative) COVID-19 Clin Com 02/02/21 02/02/21 02/02/21 Range/Units 13:32 16:37 16:37 WBC (4.8-10.8) X10*3/uL RBC (4.20-5.50) X10*6/uL Hgb (12.0-16.0) g/dl Hct (37-47) % MCV (80-98) fL MCH (27.0-33.0) pg MCHC (31.0-35.0) g/dl RDW (11.0-16.0) % Plt Count (160-400) X10*3/uL MPV (9.4-12.3) fL Immature Gran % (Auto) (0.0-0.4) % Neut % (Auto) (45-73) % Lymph % (Auto) (20-40) % Phillips % (Auto) (2-11) % Eos % (Auto) (0-4) % Baso % (Auto) (0-2) % Lymph # (Auto) (1.2-4.9) X10*3/uL Phillips # (Auto) (0.1-1.2) X10*3/uL Eos # (Auto) (0.0-0.4) X10*3/uL Baso # (Auto) (0.0-0.2) X10*3/uL Abs Immat Gran (auto) (0.00-0.03) X10*3/uL Absolute Neuts (auto) (2.0-8.3) X10*3/uL Absolute Nucleated RBC (0.0-0.012) X10*3/uL Nucleated RBC % (auto) (0.0-0.2) /100WBC Sodium (135-145) mmol/L Potassium (3.3-5.1) mmol/L Chloride (96-108) mmol/L Carbon Dioxide (22-29) mmol/L Anion Gap (12-20) BUN (9-16) mg/dL Creatinine (0.5-1.4) mg/dL Estim Creat Clear Calc Estimated GFR POC Glucose (60-115) mg/dL Random Glucose (60-115) mg/dL Calcium (8.4-10.2) mg/dL Magnesium (1.6-2.6) mg/dL Total Bilirubin (0.0-1.0) mg/dL Direct Bilirubin (0.0-0.5) mg/dL AST (5-31) U/L ALT (0-31) U/L Alkaline Phosphatase (39-117) U/L Troponin I High Sens < 3.5 (<3.5-17.0) ng/L Total Protein (6.5-8.0) g/dL Albumin (3.5-5.0) g/dL Urine Opiates Screen Not Detected (Not Detect) Ur Barbiturates Screen Not Detected (Not Detect) Ur Phencyclidine Scrn Not Detected (Not Detect) Ur Amphetamines Screen Not Detected (Not Detect) U Benzodiazepines Scrn Not Detected (Not Detect) Urine Cocaine Screen Not Detected (Not Detect) U Marijuana (THC) Screen Not Detected (Not Detect) Ethyl Alcohol < 10 mg/dL COVID-19 (NOHEMI) (Negative) COVID-19 Clin Com 02/02/21 02/03/21 02/03/21 Range/Units 22:03 03:11 06:55 WBC (4.8-10.8) X10*3/uL RBC (4.20-5.50) X10*6/uL Hgb (12.0-16.0) g/dl Hct (37-47) % MCV (80-98) fL MCH (27.0-33.0) pg MCHC (31.0-35.0) g/dl RDW (11.0-16.0) % Plt Count (160-400) X10*3/uL MPV (9.4-12.3) fL Immature Gran % (Auto) (0.0-0.4) % Neut % (Auto) (45-73) % Lymph % (Auto) (20-40) % Phillips % (Auto) (2-11) % Eos % (Auto) (0-4) % Baso % (Auto) (0-2) % Lymph # (Auto) (1.2-4.9) X10*3/uL Phillips # (Auto) (0.1-1.2) X10*3/uL Eos # (Auto) (0.0-0.4) X10*3/uL Baso # (Auto) (0.0-0.2) X10*3/uL Abs Immat Gran (auto) (0.00-0.03) X10*3/uL Absolute Neuts (auto) (2.0-8.3) X10*3/uL Absolute Nucleated RBC (0.0-0.012) X10*3/uL Nucleated RBC % (auto) (0.0-0.2) /100WBC Sodium (135-145) mmol/L Potassium (3.3-5.1) mmol/L Chloride (96-108) mmol/L Carbon Dioxide (22-29) mmol/L Anion Gap (12-20) BUN (9-16) mg/dL Creatinine (0.5-1.4) mg/dL Estim Creat Clear Calc Estimated GFR POC Glucose 230 H 117 H (60-115) mg/dL Random Glucose (60-115) mg/dL Calcium (8.4-10.2) mg/dL Magnesium (1.6-2.6) mg/dL Total Bilirubin (0.0-1.0) mg/dL Direct Bilirubin (0.0-0.5) mg/dL AST (5-31) U/L ALT (0-31) U/L Alkaline Phosphatase (39-117) U/L Troponin I High Sens (<3.5-17.0) ng/L Total Protein (6.5-8.0) g/dL Albumin (3.5-5.0) g/dL Urine Opiates Screen (Not Detect) Ur Barbiturates Screen (Not Detect) Ur Phencyclidine Scrn (Not Detect) Ur Amphetamines Screen (Not Detect) U Benzodiazepines Scrn (Not Detect) Urine Cocaine Screen (Not Detect) U Marijuana (THC) Screen (Not Detect) Ethyl Alcohol mg/dL COVID-19 (NOHEMI) Negative (Negative) COVID-19 Clin Com See Note <AD Youssef - Last Filed: 02/03/21 13:15> Imaging Data Chest x-ray: Attestation: I personally reviewed and interpreted this imaging study as follows: <Rubio Neil NP - Last Filed: 02/02/21 16:53> Radiologist's impression: [address] [id number] ReportSigned Patient: Tia Bro#: [id number]: 1960cct:[id number]/Sex: 60 / FADM Date: 02/02/21Loc: EDAttending Dr: Ordering Physician: RUBIO NEIL NP Date of Service: 02/02/21 Procedure(s): XR chest 2V Accession Number(s): [id number] cc: RUBIO NEIL NP~ EXAMINATION: XR CHEST CLINICAL INFORMATION: Chest pain COMPARISON: None TECHNIQUE: 2 views of the chest were obtained. FINDINGS: No significant abnormality is noted involving the heart, lungs, mediastinum, bony thorax or soft tissues. XR/XR chest 2V IMPRESSION: Unremarkable chest examination. <Rubio Neil NP - Last Filed: 02/02/21 16:53> Discharge Plan Discharge Clinical Impression: Chest pain, Depression, Schizoaffective disorder, depressive type <Rubio Neil NP - Last Filed: 02/02/21 16:53> Prescriptions: No Action rosuvastatin 20 mg tablet 1 tab PO BEDTIME RF: 0 Lantus Solostar U-100 Insulin 100 unit/mL (3 mL) insulin pen 45 unit subcut BID RF: 0 doxycycline hyclate 100 mg capsule 1 cap PO BID RF: 0 ziprasidone HCl 20 mg Capsule 20 mg PO BEDTIME 30 Days Qty: 30 RF: 0 cyclobenzaprine 10 mg tablet 10 mg PO BID PRN (Reason: Pain) 30 Days Qty: 30 RF: 0 <Rubio Neil NP - Last Filed: 02/02/21 16:53>
[2021-02-02 13:38] LABS: MANUAL DIFF FLAG NO
[2021-02-02 13:39] LABS: Basophils Percent Auto 0.2 % (0-2); Eosinophils Absolute Auto 0.1 X10*3/uL (0.0-0.4); Eosinophils Percent Auto 1.6 % (0-4); Hematocrit 36.8 % (37-47); Hemoglobin 11.4 g/dl (12.0-16.0); Imm Gran Abs Auto 0.02 X10*3/uL (0.00-0.03); Imm Gran Pct Auto 0.3 % (0.0-0.4); Lymphocytes Absolute Auto 1.8 X10*3/uL (1.2-4.9); Lymphocytes Percent Auto 30.1 % (20-40); Mean Platelet Volume 9.8 fL (9.4-12.3); Monocytes Absolute Auto 0.4 X10*3/uL (0.1-1.2); Monocytes Percent Auto 6.6 % (2-11); Neutrophils Absolute Auto 3.7 X10*3/uL (2.0-8.3); Neutrophils Percent Auto 61.2 % (45-73); Platelet Count 307 X10*3/uL (160-400); Red Blood Count 4.38 X10*6/uL (4.20-5.50); Red Cell Distribution Width 13.9 % (11.0-16.0); White Blood Count 6.1 X10*3/uL (4.8-10.8)
[2021-02-02 14:05] LABS: Troponin-I High Sensitivity < 3.5 ng/L (<3.5-17.0)
[2021-02-02 14:06] LABS: Ethanol < 10 mg/dL
[2021-02-02 14:10] LABS: Alanine Aminotransferase 37 U/L (0-31); Albumin Level 4.2 g/dL (3.5-5.0); Alkaline Phosphatase 82 U/L (39-117); Anion Gap 11 (12-20); Aspartate Amino Transferase 19 U/L (5-31); Bilirubin Direct 0.2 mg/dL (0.0-0.5); Bilirubin Total 0.4 mg/dL (0.0-1.0); Blood Urea Nitrogen 12 mg/dL (9-16); Calcium 9.6 mg/dL (8.4-10.2); Carbon Dioxide 29 mmol/L (22-29); Chloride 104 mmol/L (96-108); Creatinine Clr Calc Pharmacy 96.4; Estimated Glomerular Filt Rate > 60; Glucose Random 197 mg/dL (60-115); Magnesium 1.7 mg/dL (1.6-2.6); Potassium 4.1 mmol/L (3.3-5.1); Sodium 140 mmol/L (135-145); Total Protein 7.1 g/dL (6.5-8.0)
[2021-02-02] MEDS: Acetaminophen 325 MG TABLET 975 MG PO (14:20)
[2021-02-02] MEDS: Cyclobenzaprine HCl 10 MG TABLET PO (14:20)
[2021-02-02 16:39] VITALS: BP 154/81; PULSE 92; RESP 18; TEMP 36.6; O2SAT 100
[2021-02-02 17:12] LABS: Amphetamine Screen Urine Not Detected (Not Detect); Barbiturates, Urine Not Detected (Not Detect); Benzodiazepines Screen Urine Not Detected (Not Detect); Cannabinoid Screen Urine Not Detected (Not Detect); Cocaine Screen Urine Not Detected (Not Detect); Opiate Screen Urine Not Detected (Not Detect); Phencyclidine Screen Urine Not Detected (Not Detect)
[2021-02-02 17:18] LABS: Troponin-I High Sensitivity < 3.5 ng/L (<3.5-17.0)
--- NOTE | 2021-02-02 18:16 | MHC.CARE ---
CARE team consult received for pt who discharged from on 01/31/21 and self-presented today seeking readmission, stating that she felt that she left too soon. Pt shared that her auditory hallucinations are out of control and that she doesn't feel safe. Pt denied having thoughts of suicide and was brief and vague with her explanation of why she feels unsafe. It was explained to pt that readmission to is not likely, as there is no bed availability until after the holiday and because her symptoms are not at the acuity which they would require admission. This race and sports book writer is familiar with pt, having completed her crisis evaluation this past weekend due to N not having a clinician available, and after discussing current symptoms and reviewing discharge summary from admission, pt would be a good candidate for respite placement. This race and sports book writer contacted [facility] re: bed availability and the referral process. Marshall, respite staff, reported that ED-based referrals for placement should come from an [facility] crisis team, not a hospital based clinical team, and recommended referring the pt for a [facility] evaluation. This race and sports book writer spoke with ED provider re: placing a consult request for a [facility] evaluation. If a [facility] clinician is not available to evaluate pt this evening, this race and sports book writer will contact a crisis cab supervisor to discuss how a referral could be made from a non-[facility] source.
[2021-02-02 18:31] VITALS: BP 155/76; PULSE 91; RESP 18; O2SAT 97
--- NOTE | 2021-02-02 18:38 | PC.NURSE ---
PT TRANSFER TO THE POD. REPORT WAS GIVEN TO RACHEAL
--- NOTE | 2021-02-02 18:48 | PC.NURSE ---
patient transferred over from ED had come in for CP and cleared, troponins negative, drug screen negative patient searched by this filing writer and contracts for safety, full admission not yet completed. by history patient was on some meds this past week.
--- NOTE | 2021-02-02 18:51 | PC.NURSE ---
patient asked to shower and this was allowed, currently showering
--- NOTE | 2021-02-02 20:06 | PC.NURSE ---
FAXED & CALLED [facility]- AWAITING EVAL AT THIS TIME
[2021-02-02 21:57] VITALS: BP 150/78; PULSE 88; RESP 18; O2SAT 98
--- NOTE | 2021-02-02 22:58 | MHC.CARE ---
No BHN clinician will be available until the morning. This entry writer spoke with crisis fitting supervisor Gretchen re: referring pt to respite without an PRABHJOT eval. Gretchen reported that there isn't much that can be done with regards to how respite accepts referrals and facilitates admissions. Gretchen also shared that the pt had been seen by crisis Thursday at [facility]'s ED, however didn't know what the dispo/recommendations were. It was discussed that pt will wait for BHN eval in the morning, as pt is unable to be referred for appropriate treatment recommended by this entry writer without an PRABHJOT evaluation.
[2021-02-02 23:11] LABS: Glucose, Whole Blood 230 mg/dL (60-115)
[2021-02-03 02:00] VITALS: BP 121/60; PULSE 97; RESP 18; TEMP 36.5; O2SAT 98
[2021-02-03 03:41] LABS: COVID-19 Test Negative (Negative)
[2021-02-03 06:58] LABS: Glucose, Whole Blood 117 mg/dL (60-115)
--- NOTE | 2021-02-03 07:35 | PC.NURSE ---
patient was awake upon arrival to unit, patient requesting hygiene items to take shower, requested tech to obtain blood sugar this morning which was 117. patient appears in no distress.
[2021-02-03] MEDS: Cyclobenzaprine HCl 10 MG TABLET PO (09:45)
[2021-02-03] MEDS: Magnesium Citrate 300 ML SOLUTION PO (09:46)
[2021-02-03 10:55] VITALS: BP 163/84; PULSE 96; RESP 16; O2SAT 99
--- NOTE | 2021-02-03 13:30 | MHC.CARE ---
Patient stated that she was seen by N at [facility] yesterday, they had recommended [facility] (respite) but she was then referred to [facility], which patient did agree to at that time. On the way there she experienced chest pain and took an ambulance here to [facility]. Patient is not suicidal and does not appear to be at risk for self-harm, she would like to be referred to [facility] which has to be done through [facility] Crisis. CARE Team had several conversations with clinician and supervisor riveting at [facility]), patient to be evaluated for respite at the [facility] in [place]?they will be expecting her arrival. CARE Team to arrange Lyft. Providers updated and in support of this plan.
== END 2021-02-03 13:56 | disposition home or self-care (01) ==
PROVIDERS: Nurse Practitioner Family; Emergency Provider Emergency Medicine Emergency Medical Services
DX: R07.9 Chest pain, unspecified (principal); F25.9 Schizoaffective disorder, unspecified; R51.9 Headache, unspecified; F33.1 Major depressive disorder, recurrent, moderate; E11.9 Type 2 diabetes mellitus without complications; Z20.822 Contact with and (suspected) exposure to COVID-19; Z87.898 Personal history of other specified conditions; Z79.4 Long term (current) use of insulin; Z79.899 Other long term (current) drug therapy
CPT/HCPCS: 36415; 71046; 80048; 80076; 80307; 82077; 82947; 83735; 84484; 85025; 87635; 93005; 96372; 99285

== ENCOUNTER 2021-06-08 19:23 | Inpatient (IN) | payer MEDICARE, MEDICAID, SELFPAY ==
--- NOTE | ~2021-06-08 | XR_ITS ---
EXAMINATION: XR CHEST CLINICAL INFORMATION: Cough. COMPARISON: Chest radiograph dated 02/02/2021. TECHNIQUE: Frontal view of the chest was obtained. FINDINGS: The lungs are clear. The cardiomediastinal silhouette is normal in size. There is no pleural effusion or pneumothorax. No acute osseous abnormality. XR/XR chest 1V IMPRESSION: No acute cardiopulmonary findings.
[2021-06-08 19:27] VITALS: BP 144/78; PULSE 82; O2SAT 98
--- NOTE | 2021-06-08 19:41 | PC.NURSE ---
pt has been in the bathroom since her arrival, pt states she is ok and is having a bowel movement.
[2021-06-08 19:43] VITALS: BP 164/84; PULSE 102; RESP 18; TEMP 37; O2SAT 99; BMI 38.7
--- NOTE | 2021-06-08 20:34 | ED.GENADULT ---
HPI - General Adult General Chief complaint: General Medical Stated complaint: headache high sugar Source: patient Mode of arrival: ambulatory Limitations: no limitations History of Present Illness HPI narrative: 60-year-old female presents with upper respiratory symptoms for approximately 3 weeks. States that she feels chest tightness, has a cough, and feels wheezy. She also states that she feels majorly depressed, but denies suicidal or homicidal ideations at this time. Onset (ago): week(s) (3) Location: chest Radiation: non-radiation Severity: moderate Severity scale (1-10): 6 Relieving factors: none Associated symptoms: cough, headaches and other (Depression) Treatments prior to arrival: none Related Data Home Medications Medication Instructions Recorded Confirmed insulin glargine 100 unit/mL (3 60 unit SUBCUT BID 01/26/21 06/09/21 mL) subcutaneous pen (Lantus Solostar U-100 Insulin) rosuvastatin 20 mg tablet 1 tab PO BEDTIME 01/26/21 06/09/21 clonazepam 0.5 mg tablet 0.5 mg PO BEDTIME PRN 06/09/21 06/09/21 Allergies Allergy/AdvReac Type Severity Reaction Status Date / Time insulin aspart [From Novolog] Allergy Unknown HYPOGLYCMEI Verified 06/08/21 23:08 A Novolog Allergy Unknown Itchy Eyes Uncoded 01/26/21 13:01 Review of Systems Review of Systems: Constitutional: No Fever, No Chills ENT/Mouth: No Ear Pain, No Nasal Congestion, No sore throat Eyes: No Eye Pain, No Swelling, No Redness Cardiovascular: No Chest Pain, positive SOB Respiratory: Positive Cough, No Sputum, No Dyspnea Gastrointestinal: No Nausea, No Vomiting, No Diarrhea, No Hematochezia, No Melena Genitourinary: No Dysuria, No Urinary Frequency, No Hematuria Musculoskeletal: No Myalgias Skin: No Skin Lesions, No rash Neuro: No Weakness, No Numbness, No Paresthesias, No Dizziness, No Headache Psych: positive Anxiety, positive Depression, no SI/HI Heme/Lymph: No Lymphadenopathy Endocrine: No Polyuria, No Polydipsia Yes all other systems are reviewed and are negative PMFSH Past Medical History Attestation statement: The following information was validated with the patient. Source: old records reviewed Medical History CVA (cerebral vascular accident) Diabetes Schizoaffective disorder, depressive type Surgical History H/O: hysterectomy Social History Social History Household Members: None Household Members Other:: patient reports being alone and homeless for 17 years Housing: Homeless Do you presently have visiting nurse or other home services: No Patient Tobacco Use Status: Never used Tobacco Smoked in Last 30 Days: No Second Hand Smoke Exposure: No Use of substances other than those prescribed or required for medical reasons: No Advance Directives: No Advance Directives Information Provided: No Patient : No service: No Sexual orientation: did not discuss. Physical Exam Vital Signs: Vital Signs: Last Vital Signs Temp 98.3 F 06/08/21 22:43 Pulse 88 06/08/21 23:38 Resp 18 06/08/21 22:43 BP 149/73 H 06/08/21 22:43 Pulse Ox 98 06/08/21 22:43 Body Mass Index 38.7 Appearance: Alert. Oriented X3. No acute distress. Eyes: Pupils equal, round and reactive to light. ENT: Pharynx normal. Neck: Normal inspection. Neck supple. CVS: Normal heart rate and rhythm. Pulses normal. Respiratory: No respiratory distress. Lung sounds clear auscultation all lobes. Abdomen: Soft and nontender. Skin: Skin warm and dry. Normal skin color. Normal skin turgor. Extremities: No lower extremity edema. Neuro: No motor deficit. No sensory deficit. Course Course Course Narrative: 60-year-old female presents with upper respiratory symptoms as well as major depression. Will clear medically, chest x-ray, COVID testing and labs. Patient did present to the emergency department with multiple pieces of luggage. Blood sugar elevated, was ordered regular insulin however patient adamantly refused this medication and prefer to take her Lantus. 10:26 p.m. patient medically cleared. Requested to transfer to psych pod in the emergency department. Physician observation initiated, crisis eval pending Medical Decision Making Differential Diagnosis Differential Diagnosis: URI, COVID, pneumonia, depression Medical Records Medical records reviewed: Yes I reviewed the patient's medical records. Lab Data Lab results reviewed: Yes I reviewed the patient's lab results. Result diagrams: 06/08/21 21:32 06/08/21 21:32 Labs: Lab Results 06/08/21 06/08/21 06/08/21 Range/Units 20:09 20:41 21:32 WBC (4.8-10.8) X10*3/uL RBC (4.20-5.50) X10*6/uL Hgb (12.0-16.0) g/dl Hct (37-47) % MCV (80-98) fL MCH (27.0-33.0) pg MCHC (31.0-35.0) g/dl RDW (11.0-16.0) % Plt Count (160-400) X10*3/uL MPV (9.4-12.3) fL Immature Gran % (Auto) (0.0-0.4) % Neut % (Auto) (45-73) % Lymph % (Auto) (20-40) % [place] % (Auto) (2-11) % Eos % (Auto) (0-4) % Baso % (Auto) (0-2) % Lymph # (Auto) (1.2-4.9) X10*3/uL [place] # (Auto) (0.1-1.2) X10*3/uL Eos # (Auto) (0.0-0.4) X10*3/uL Baso # (Auto) (0.0-0.2) X10*3/uL Abs Immat Gran (auto) (0.00-0.03) X10*3/uL Absolute Neuts (auto) (2.0-8.3) X10*3/uL Absolute Nucleated RBC (0.0-0.012) X10*3/uL Nucleated RBC % (auto) (0.0-0.2) /100WBC Sodium 138 (135-145) mmol/L Potassium 4.1 (3.3-5.1) mmol/L Chloride 105 (96-108) mmol/L Carbon Dioxide 23 (22-29) mmol/L Anion Gap 14 (12-20) BUN 11 (9-16) mg/dL Creatinine 1.00 (0.5-1.4) mg/dL Estim Creat Clear Calc 76.6 Estimated GFR 57 POC Glucose 358 H* (60-115) mg/dL Random Glucose 431 H* (60-115) mg/dL Calcium 9.3 (8.4-10.2) mg/dL Total Bilirubin 0.2 (0.0-1.0) mg/dL AST 18 (5-31) U/L ALT 20 (0-31) U/L Alkaline Phosphatase 69 (39-117) U/L Total Protein 6.8 (6.5-8.0) g/dL Albumin 4.0 (3.5-5.0) g/dL Urine Opiates Screen (Not Detect) Urine Fentanyl Screen (Not Detect) Ur Barbiturates Screen (Not Detect) Ur Phencyclidine Scrn (Not Detect) Ur Amphetamines Screen (Not Detect) U Benzodiazepines Scrn (Not Detect) Urine Cocaine Screen (Not Detect) U Marijuana (THC) Screen (Not Detect) Ethyl Alcohol mg/dL Coronavirus (PCR) NEGATIVE (Negative) Influenza Type A (PCR) NEGATIVE (Negative) Influenza Type B (PCR) NEGATIVE (Negative) RSV RNA Qual (PCR) NEGATIVE (Negative) 06/08/21 06/08/21 06/08/21 Range/Units 21:32 21:32 22:46 WBC 7.2 (4.8-10.8) X10*3/uL RBC 4.22 (4.20-5.50) X10*6/uL Hgb 11.0 L (12.0-16.0) g/dl Hct 34.8 L (37-47) % MCV 82.5 (80-98) fL MCH 26.1 L (27.0-33.0) pg MCHC 31.6 (31.0-35.0) g/dl RDW 14.6 (11.0-16.0) % Plt Count 284 (160-400) X10*3/uL MPV 10.0 (9.4-12.3) fL Immature Gran % (Auto) 0.4 (0.0-0.4) % Neut % (Auto) 62.1 (45-73) % Lymph % (Auto) 26.9 (20-40) % [place] % (Auto) 7.3 (2-11) % Eos % (Auto) 3.0 (0-4) % Baso % (Auto) 0.3 (0-2) % Lymph # (Auto) 1.9 (1.2-4.9) X10*3/uL [place] # (Auto) 0.5 (0.1-1.2) X10*3/uL Eos # (Auto) 0.2 (0.0-0.4) X10*3/uL Baso # (Auto) 0.0 (0.0-0.2) X10*3/uL Abs Immat Gran (auto) 0.03 (0.00-0.03) X10*3/uL Absolute Neuts (auto) 4.5 (2.0-8.3) X10*3/uL Absolute Nucleated RBC 0.000 (0.0-0.012) X10*3/uL Nucleated RBC % (auto) 0.0 (0.0-0.2) /100WBC Sodium (135-145) mmol/L Potassium (3.3-5.1) mmol/L Chloride (96-108) mmol/L Carbon Dioxide (22-29) mmol/L Anion Gap (12-20) BUN (9-16) mg/dL Creatinine (0.5-1.4) mg/dL Estim Creat Clear Calc Estimated GFR POC Glucose (60-115) mg/dL Random Glucose (60-115) mg/dL Calcium (8.4-10.2) mg/dL Total Bilirubin (0.0-1.0) mg/dL AST (5-31) U/L ALT (0-31) U/L Alkaline Phosphatase (39-117) U/L Total Protein (6.5-8.0) g/dL Albumin (3.5-5.0) g/dL Urine Opiates Screen Not Detected (Not Detect) Urine Fentanyl Screen Not Detected (Not Detect) Ur Barbiturates Screen Not Detected (Not Detect) Ur Phencyclidine Scrn Not Detected (Not Detect) Ur Amphetamines Screen Not Detected (Not Detect) U Benzodiazepines Scrn Not Detected (Not Detect) Urine Cocaine Screen Not Detected (Not Detect) U Marijuana (THC) Screen Not Detected (Not Detect) Ethyl Alcohol < 10 mg/dL Coronavirus (PCR) (Negative) Influenza Type A (PCR) (Negative) Influenza Type B (PCR) (Negative) RSV RNA Qual (PCR) (Negative) Imaging Data Chest x-ray: Attestation: I personally reviewed and interpreted this imaging study as follows: Radiologist's impression: EXAMINATION: XR CHEST CLINICAL INFORMATION: Cough. COMPARISON: Chest radiograph dated 02/02/2021. TECHNIQUE: Frontal view of the chest was obtained. FINDINGS: The lungs are clear. The cardiomediastinal silhouette is normal in size. There is no pleural effusion or pneumothorax. No acute osseous abnormality. XR/XR chest 1V IMPRESSION: No acute cardiopulmonary findings. Discharge Plan Discharge Clinical Impression: Schizoaffective disorder, depressive type Instructions: Schizoaffective Disorder (ED) Prescriptions: No Action rosuvastatin 20 mg tablet 1 tab PO BEDTIME RF: 0 Lantus Solostar U-100 Insulin 100 unit/mL (3 mL) insulin pen 60 unit subcut BID RF: 0 clonazepam 0.5 mg Tablet 0.5 mg PO BEDTIME PRN (Reason: Sleep) RF: 0
[2021-06-08 21:37] LABS: MANUAL DIFF FLAG NO
[2021-06-08 21:39] LABS: Basophils Percent Auto 0.3 % (0-2); Eosinophils Absolute Auto 0.2 X10*3/uL (0.0-0.4); Hematocrit 34.8 % (37-47); Imm Gran Abs Auto 0.03 X10*3/uL (0.00-0.03); Imm Gran Pct Auto 0.4 % (0.0-0.4); Lymphocytes Absolute Auto 1.9 X10*3/uL (1.2-4.9); Lymphocytes Percent Auto 26.9 % (20-40); Mean Corpuscular HGB Conc 31.6 g/dl (31.0-35.0); Mean Corpuscular Hemoglobin 26.1 pg (27.0-33.0); Mean Corpuscular Volume 82.5 fL (80-98); Monocytes Absolute Auto 0.5 X10*3/uL (0.1-1.2); Monocytes Percent Auto 7.3 % (2-11); Neutrophils Absolute Auto 4.5 X10*3/uL (2.0-8.3); Neutrophils Percent Auto 62.1 % (45-73); Platelet Count 284 X10*3/uL (160-400); Red Blood Count 4.22 X10*6/uL (4.20-5.50); Red Cell Distribution Width 14.6 % (11.0-16.0); White Blood Count 7.2 X10*3/uL (4.8-10.8)
[2021-06-08 21:42] LABS: Glucose, Whole Blood 358 mg/dL (60-115)
[2021-06-08 21:52] LABS: Ethanol < 10 mg/dL
[2021-06-08 22:01] LABS: Alanine Aminotransferase 20 U/L (0-31); Alkaline Phosphatase 69 U/L (39-117); Anion Gap 14 (12-20); Aspartate Amino Transferase 18 U/L (5-31); Bilirubin Total 0.2 mg/dL (0.0-1.0); Blood Urea Nitrogen 11 mg/dL (9-16); Calcium 9.3 mg/dL (8.4-10.2); Carbon Dioxide 23 mmol/L (22-29); Chloride 105 mmol/L (96-108); Creatinine Clr Calc Pharmacy 76.6; Estimated Glomerular Filt Rate 57; Glucose Random 431 mg/dL (60-115); Potassium 4.1 mmol/L (3.3-5.1); Sodium 138 mmol/L (135-145); Total Protein 6.8 g/dL (6.5-8.0)
[2021-06-08 22:10] LABS: Influenza A PCR NEGATIVE (Negative); Influenza B PCR NEGATIVE (Negative); Resp Syncy Virus RNA Qual PCR NEGATIVE (Negative); SARS COV2 PCR INHOUSE NEGATIVE (Negative)
[2021-06-08 22:43] VITALS: BP 149/73; PULSE 87; RESP 18; TEMP 36.8; O2SAT 98
[2021-06-08 23:10] LABS: Amphetamine Screen Urine Not Detected (Not Detect); Barbiturates, Urine Not Detected (Not Detect); Benzodiazepines Screen Urine Not Detected (Not Detect); Cannabinoid Screen Urine Not Detected (Not Detect); Cocaine Screen Urine Not Detected (Not Detect); Fentanyl, urine Not Detected (Not Detect); Opiate Screen Urine Not Detected (Not Detect); Phencyclidine Screen Urine Not Detected (Not Detect)
[2021-06-08] MEDS: Insulin Glargine,Hum.rec.anlog 100 UNIT/ML 10 ML VIAL 60 UNIT SUBCUT (23:11)
[2021-06-08] MEDS: Benzonatate 100 MG CAPSULE 200 MG PO (23:17)
[2021-06-08] MEDS: Albuterol Sulfate (0.083%) 2.5 MG/3 ML VIAL.NEB 5 MG INHALE (23:32)
[2021-06-08 23:38] VITALS: PULSE 88; O2SAT 95
--- NOTE | 2021-06-09 00:05 | PC.NURSE ---
REPORT CALLED TO STEFANO IN THE POD. PT MOVING TO POD. BHN CONSULTED FOR DEPRESSION.
--- NOTE | 2021-06-09 00:15 | PC.NURSE ---
PT escorted to the pod from [facility]. PT ambulates with steady gait, calm and cooperative, and in NAD. PT is complaining of depression and would like to speak with crisis team. No SI/HI reported by PT.
--- NOTE | 2021-06-09 00:35 | PC.NURSE ---
JOSELINE faxed and called. JOSELINE stated that PT would not be able to be seen until the morning.
[2021-06-09 07:57] VITALS: BP 137/90; PULSE 62; RESP 18; O2SAT 97
[2021-06-09] MEDS: Insulin Glargine,Hum.rec.anlog 100 UNIT/ML 10 ML VIAL 60 UNIT SUBCUT ×2 (08:25→21:06)
[2021-06-09] MEDS: Atorvastatin Calcium 80 MG TABLET PO (08:25)
[2021-06-09] MEDS: clonazePAM 0.5 MG TABLET PO (09:35)
[2021-06-09] MEDS: Benzonatate 100 MG CAPSULE 200 MG PO ×2 (09:35→16:48)
--- NOTE | 2021-06-09 10:51 | PC.NURSE ---
smart sheet resent to nevaeh
[2021-06-09 10:56] VITALS: BP 134/73; PULSE 82; RESP 17; O2SAT 98
[2021-06-09] MEDS: Acetaminophen 325 MG TABLET 650 MG PO (16:48)
[2021-06-09] MEDS: Milk of Magnesia 30 ML ORAL.SUSP PO (16:48)
[2021-06-09] MEDS: Cyclobenzaprine HCl 10 MG TABLET PO (16:49)
[2021-06-09 17:09] VITALS: BP 125/74; PULSE 88; RESP 18; TEMP 36.5; O2SAT 97
[2021-06-09 17:40] LABS: Glucose, Whole Blood 197 mg/dL (60-115)
[2021-06-09 18:04] LABS: Glucose, Whole Blood 265 mg/dL (60-115)
--- NOTE | 2021-06-09 19:22 | MHC.CARE ---
CARE team evaluated pt. Plan is for voluntary inpt psych admission.
[2021-06-09 21:03] LABS: Glucose, Whole Blood 280 mg/dL (60-115)
[2021-06-09 23:52] VITALS: BP 141/64; PULSE 80; TEMP 36.8; O2SAT 98
--- NOTE | 2021-06-10 02:29 | PC.ADMIT ---
Pt is a 60years female reported to the ER with increased coughing lasting more than 3 days. reported to the MD of increased depression and auditory hallucinations, saying she might do something drastic if she is discharged. Dianosis: Psychosis, Tox negative, Covod negative. Pt alert and oriented X4, VSS, Denies Si/HI, but reports increasing depression, auditory hallucination, thoughts that people are following her. Organized thought process, flat affect, calm and cooperative. Speech is normal with normal rhythm, tone and nasim. Pt reports decreased appetite.
[2021-06-10 06:00] VITALS: BP 160/82; PULSE 78; RESP 18; TEMP 36.4; O2SAT 100
[2021-06-10 06:56] LABS: Glucose, Whole Blood 54 mg/dL (60-115)
[2021-06-10] MEDS: Insulin Glargine,Hum.rec.anlog 100 UNIT/ML 10 ML VIAL 60 UNIT SUBCUT ×2 (09:07→20:22)
[2021-06-10] MEDS: Acetaminophen 325 MG TABLET 650 MG PO ×2 (09:08→20:21)
[2021-06-10 11:56] LABS: Glucose, Whole Blood 101 mg/dL (60-115)
[2021-06-10] MEDS: LORazepam 1 MG TABLET PO ×2 (13:24→20:22)
--- NOTE | 2021-06-10 13:29 | MHC.CLN ---
RE: CONSULT HT 66 WT 240# IBW 130#+/-10% PT IS 185% IBW INDICATES OBESE FOR HT ESTIMATED NUTRITION NEEDS BASED ON ADJUSTED BODY WT: [id number], 75G PROTEIN, [id number] LABS: 06/08 WNL ALBUMIN 4.0 RG 431 MEDS: LANTUS, TRAZADONE DIET [id number] REPORTS FEELING HUNGRY ON DM DIET RECOMMEND INCREASING DIET 1800DM DIET WILL PROMOTE SLOW WT LOSS AND MEETS ESTIMATED NEEDS MONITOR PO INTAKE CLOSELY
--- NOTE | 2021-06-10 15:40 | P.PNPSI_ITS ---
Subjective Subjective Date of Service: 06/10/21 Reason For Visit: pschosis Subjective Notes: Recio Warning and Conditional Voluntary Healthcare Proxy: No Guardianship: No Medical Problems Affecting Mental Status: Yes Diagnostics Vital Signs (24Hr): Vital Signs - 24 hr 06/09/21 17:09 06/09/21 23:52 06/10/21 06:00 Temperature 97.7 F 98.2 F 97.6 F Pulse Rate 88 80 78 Respiratory Rate 18 18 Blood Pressure 125/74 141/64 H 160/82 H Pulse Oximetry 97 98 100 Body Mass Index 38.7 Labs Results: 06/08/21 21:32 06/08/21 21:32 Labs: Laboratory Results - last 48 hr 06/08/21 06/08/21 06/08/21 20:09 20:41 21:32 WBC RBC Hgb Hct MCV MCH MCHC RDW Plt Count MPV Immature Gran % (Auto) Neut % (Auto) Lymph % (Auto) [place] % (Auto) Eos % (Auto) Baso % (Auto) Lymph # (Auto) [place] # (Auto) Eos # (Auto) Baso # (Auto) Abs Immat Gran (auto) Absolute Neuts (auto) Absolute Nucleated RBC Nucleated RBC % (auto) Sodium 138 Potassium 4.1 Chloride 105 Carbon Dioxide 23 Anion Gap 14 BUN 11 Creatinine 1.00 Estim Creat Clear Calc 76.6 Estimated GFR 57 POC Glucose 358 H* Random Glucose 431 H* Calcium 9.3 Total Bilirubin 0.2 AST 18 ALT 20 Alkaline Phosphatase 69 Total Protein 6.8 Albumin 4.0 Urine Opiates Screen Urine Fentanyl Screen Ur Barbiturates Screen Ur Phencyclidine Scrn Ur Amphetamines Screen U Benzodiazepines Scrn Urine Cocaine Screen U Marijuana (THC) Screen Ethyl Alcohol Coronavirus (PCR) NEGATIVE Influenza Type A (PCR) NEGATIVE Influenza Type B (PCR) NEGATIVE RSV RNA Qual (PCR) NEGATIVE 06/08/21 06/08/21 06/08/21 21:32 21:32 22:46 WBC 7.2 RBC 4.22 Hgb 11.0 L Hct 34.8 L MCV 82.5 MCH 26.1 L MCHC 31.6 RDW 14.6 Plt Count 284 MPV 10.0 Immature Gran % (Auto) 0.4 Neut % (Auto) 62.1 Lymph % (Auto) 26.9 [place] % (Auto) 7.3 Eos % (Auto) 3.0 Baso % (Auto) 0.3 Lymph # (Auto) 1.9 [place] # (Auto) 0.5 Eos # (Auto) 0.2 Baso # (Auto) 0.0 Abs Immat Gran (auto) 0.03 Absolute Neuts (auto) 4.5 Absolute Nucleated RBC 0.000 Nucleated RBC % (auto) 0.0 Sodium Potassium Chloride Carbon Dioxide Anion Gap BUN Creatinine Estim Creat Clear Calc Estimated GFR POC Glucose Random Glucose Calcium Total Bilirubin AST ALT Alkaline Phosphatase Total Protein Albumin Urine Opiates Screen Not Detected Urine Fentanyl Screen Not Detected Ur Barbiturates Screen Not Detected Ur Phencyclidine Scrn Not Detected Ur Amphetamines Screen Not Detected U Benzodiazepines Scrn Not Detected Urine Cocaine Screen Not Detected U Marijuana (THC) Screen Not Detected Ethyl Alcohol < 10 Coronavirus (PCR) Influenza Type A (PCR) Influenza Type B (PCR) RSV RNA Qual (PCR) 06/09/21 06/09/21 06/09/21 08:43 18:00 21:00 WBC RBC Hgb Hct MCV MCH MCHC RDW Plt Count MPV Immature Gran % (Auto) Neut % (Auto) Lymph % (Auto) [place] % (Auto) Eos % (Auto) Baso % (Auto) Lymph # (Auto) [place] # (Auto) Eos # (Auto) Baso # (Auto) Abs Immat Gran (auto) Absolute Neuts (auto) Absolute Nucleated RBC Nucleated RBC % (auto) Sodium Potassium Chloride Carbon Dioxide Anion Gap BUN Creatinine Estim Creat Clear Calc Estimated GFR POC Glucose 197 H 265 H 280 H Random Glucose Calcium Total Bilirubin AST ALT Alkaline Phosphatase Total Protein Albumin Urine Opiates Screen Urine Fentanyl Screen Ur Barbiturates Screen Ur Phencyclidine Scrn Ur Amphetamines Screen U Benzodiazepines Scrn Urine Cocaine Screen U Marijuana (THC) Screen Ethyl Alcohol Coronavirus (PCR) Influenza Type A (PCR) Influenza Type B (PCR) RSV RNA Qual (PCR) 06/10/21 06/10/21 06:51 11:47 WBC RBC Hgb Hct MCV MCH MCHC RDW Plt Count MPV Immature Gran % (Auto) Neut % (Auto) Lymph % (Auto) [place] % (Auto) Eos % (Auto) Baso % (Auto) Lymph # (Auto) [place] # (Auto) Eos # (Auto) Baso # (Auto) Abs Immat Gran (auto) Absolute Neuts (auto) Absolute Nucleated RBC Nucleated RBC % (auto) Sodium Potassium Chloride Carbon Dioxide Anion Gap BUN Creatinine Estim Creat Clear Calc Estimated GFR POC Glucose 54 L* 101 Random Glucose Calcium Total Bilirubin AST ALT Alkaline Phosphatase Total Protein Albumin Urine Opiates Screen Urine Fentanyl Screen Ur Barbiturates Screen Ur Phencyclidine Scrn Ur Amphetamines Screen U Benzodiazepines Scrn Urine Cocaine Screen U Marijuana (THC) Screen Ethyl Alcohol Coronavirus (PCR) Influenza Type A (PCR) Influenza Type B (PCR) RSV RNA Qual (PCR) Imaging Radiology Impressions: ITS Impressions Chest X-Ray 06/08/21 19:50 IMPRESSION: No acute cardiopulmonary findings. Medications Medications Current Medications Acetaminophen (Acetaminophen 325 Mg Tablet) 650 mg PO Q6H PRN PRN Reason: Headache/Pain Mild Scale (1-3) Last Admin: 06/10/21 09:08 Dose: 650 mg Documented by: Al Hydroxide/Mg Hydroxide (Magnesium Hydrox/Alum Hydrox 30 Ml Oral.Susp) 30 ml PO Q6H PRN PRN Reason: Heartburn/Nausea Benzonatate (Benzonatate 100 Mg Capsule) 100 mg PO TID PRN PRN Reason: Cough Escitalopram Oxalate (Escitalopram Oxalate 5 Mg Tablet) 5 mg PO DAILY [facility] Hydroxyzine HCl (Hydroxyzine Hcl 25 Mg Tablet) 25 mg PO BEDTIME PRN PRN Reason: Anxiety Insulin Glargine (Insulin Glargine,Hum.Rec.Anlog 100 Unit/Ml 10 Ml Vial) 60 unit SUBCUT BID [facility] Last Admin: 06/10/21 09:07 Dose: 60 unit Documented by: Lorazepam (Lorazepam 1 Mg Tablet) 1 mg PO Q4H PRN PRN Reason: severe anxiety Last Admin: 06/10/21 13:24 Dose: 1 mg Documented by: Magnesium Hydroxide (Milk Of Magnesia 30 Ml Oral.Susp) 30 ml PO DAILY PRN PRN Reason: Constipation Senna/Docusate Sodium (Sennosides/Docusate Sodium Tablet) 1 tab PO DAILY PRN PRN Reason: Constipation Trazodone HCl (Trazodone Hcl 50 Mg Tablet) 50 mg PO BEDTIME PRN PRN Reason: Insomnia Allergies Allergies Allergy/AdvReac Type Severity Reaction Status Date / Time insulin aspart [From Novolog] Allergy Unknown HYPOGLYCMEI Verified 06/08/21 23:08 A Novolog Allergy Unknown Itchy Eyes Uncoded 01/26/21 13:01 Assessment & Plan Greater than 50% of the session was spent on counseling and/or coordination of care
[2021-06-10 18:02] LABS: Glucose, Whole Blood 176 mg/dL (60-115)
[2021-06-10] MEDS: Benzonatate 100 MG CAPSULE PO (18:05)
--- NOTE | 2021-06-10 18:07 | P.HPPS_ITS ---
HPI Chief Complaint: depression Sources of Information: patient interviewed, chart reviewed and crisis/core team assessment reviewed HPI Subjective Notes: Recio Warning and Conditional Voluntary Healthcare Proxy: No Guardianship: No Medical Problems Affecting Mental Status: Yes (DM) Narrative: 60 yo who reports an increase in depressive sx and hx of trauma. Hx of schizoaffective disorder, depressed. Pt reports the anxiety is taking my head apart. Identifies current stressors as moving back to the area from [place], [place] after a 3 week stay. 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 States she has been homeless for 18 years and without any stability. She reports a persistant cough for three weeks and resulting internal pain from the cough without relief or treatment. Pt states no doors open for me I have had to live in hotels in disgusting situations , I don't have enough food As a result pt reports she feels life is worthless and the form of life she has is not worth living and the frank are closing in on me. Past Psychiatric History: Past med trials: Risperdal-helped but made her gain weight Trilafon-caused overmedicated feeling Abilify-did not like got off in 3 days Zoloft Zyprexa, Geodon, Klonopin, Flexoril, Robaxin hx of inpatient admisisons Medical Evaluation Reviewed: Yes [facility] Medical History CVA (cerebral vascular accident) Diabetes Schizoaffective disorder, depressive type Narrative: CAD Surgical History H/O: hysterectomy Family History: deferred Social History: Homeless she reports x 18 years. Just returned from a three week stay in [place], [place] where she attempted to attend nursing training however, this did not work out. Substance History: denies Trauma History: Reports history of trauma, but denies PTSD symptoms reporting she has worked through them by talking Diagnostics Vital Signs (24Hr): Vital Signs - 24 hr 06/09/21 23:52 06/10/21 06:00 Temperature 98.2 F 97.6 F Pulse Rate 80 78 Respiratory Rate 18 Blood Pressure 141/64 H 160/82 H Pulse Oximetry 98 100 Body Mass Index 38.7 Labs Results: 06/08/21 21:32 06/08/21 21:32 Labs: Laboratory Results - last 48 hr 06/08/21 06/08/21 06/08/21 20:09 20:41 21:32 WBC RBC Hgb Hct MCV MCH MCHC RDW Plt Count MPV Immature Gran % (Auto) Neut % (Auto) Lymph % (Auto) [place] % (Auto) Eos % (Auto) Baso % (Auto) Lymph # (Auto) [place] # (Auto) Eos # (Auto) Baso # (Auto) Abs Immat Gran (auto) Absolute Neuts (auto) Absolute Nucleated RBC Nucleated RBC % (auto) Sodium 138 Potassium 4.1 Chloride 105 Carbon Dioxide 23 Anion Gap 14 BUN 11 Creatinine 1.00 Estim Creat Clear Calc 76.6 Estimated GFR 57 POC Glucose 358 H* Random Glucose 431 H* Calcium 9.3 Total Bilirubin 0.2 AST 18 ALT 20 Alkaline Phosphatase 69 Total Protein 6.8 Albumin 4.0 Urine Opiates Screen Urine Fentanyl Screen Ur Barbiturates Screen Ur Phencyclidine Scrn Ur Amphetamines Screen U Benzodiazepines Scrn Urine Cocaine Screen U Marijuana (THC) Screen Ethyl Alcohol Coronavirus (PCR) NEGATIVE Influenza Type A (PCR) NEGATIVE Influenza Type B (PCR) NEGATIVE RSV RNA Qual (PCR) NEGATIVE 06/08/21 06/08/21 06/08/21 21:32 21:32 22:46 WBC 7.2 RBC 4.22 Hgb 11.0 L Hct 34.8 L MCV 82.5 MCH 26.1 L MCHC 31.6 RDW 14.6 Plt Count 284 MPV 10.0 Immature Gran % (Auto) 0.4 Neut % (Auto) 62.1 Lymph % (Auto) 26.9 [place] % (Auto) 7.3 Eos % (Auto) 3.0 Baso % (Auto) 0.3 Lymph # (Auto) 1.9 [place] # (Auto) 0.5 Eos # (Auto) 0.2 Baso # (Auto) 0.0 Abs Immat Gran (auto) 0.03 Absolute Neuts (auto) 4.5 Absolute Nucleated RBC 0.000 Nucleated RBC % (auto) 0.0 Sodium Potassium Chloride Carbon Dioxide Anion Gap BUN Creatinine Estim Creat Clear Calc Estimated GFR POC Glucose Random Glucose Calcium Total Bilirubin AST ALT Alkaline Phosphatase Total Protein Albumin Urine Opiates Screen Not Detected Urine Fentanyl Screen Not Detected Ur Barbiturates Screen Not Detected Ur Phencyclidine Scrn Not Detected Ur Amphetamines Screen Not Detected U Benzodiazepines Scrn Not Detected Urine Cocaine Screen Not Detected U Marijuana (THC) Screen Not Detected Ethyl Alcohol < 10 Coronavirus (PCR) Influenza Type A (PCR) Influenza Type B (PCR) RSV RNA Qual (PCR) 06/09/21 06/09/21 06/09/21 08:43 18:00 21:00 WBC RBC Hgb Hct MCV MCH MCHC RDW Plt Count MPV Immature Gran % (Auto) Neut % (Auto) Lymph % (Auto) [place] % (Auto) Eos % (Auto) Baso % (Auto) Lymph # (Auto) [place] # (Auto) Eos # (Auto) Baso # (Auto) Abs Immat Gran (auto) Absolute Neuts (auto) Absolute Nucleated RBC Nucleated RBC % (auto) Sodium Potassium Chloride Carbon Dioxide Anion Gap BUN Creatinine Estim Creat Clear Calc Estimated GFR POC Glucose 197 H 265 H 280 H Random Glucose Calcium Total Bilirubin AST ALT Alkaline Phosphatase Total Protein Albumin Urine Opiates Screen Urine Fentanyl Screen Ur Barbiturates Screen Ur Phencyclidine Scrn Ur Amphetamines Screen U Benzodiazepines Scrn Urine Cocaine Screen U Marijuana (THC) Screen Ethyl Alcohol Coronavirus (PCR) Influenza Type A (PCR) Influenza Type B (PCR) RSV RNA Qual (PCR) 06/10/21 06/10/21 06/10/21 06:51 11:47 17:00 WBC RBC Hgb Hct MCV MCH MCHC RDW Plt Count MPV Immature Gran % (Auto) Neut % (Auto) Lymph % (Auto) [place] % (Auto) Eos % (Auto) Baso % (Auto) Lymph # (Auto) [place] # (Auto) Eos # (Auto) Baso # (Auto) Abs Immat Gran (auto) Absolute Neuts (auto) Absolute Nucleated RBC Nucleated RBC % (auto) Sodium Potassium Chloride Carbon Dioxide Anion Gap BUN Creatinine Estim Creat Clear Calc Estimated GFR POC Glucose 54 L* 101 176 H Random Glucose Calcium Total Bilirubin AST ALT Alkaline Phosphatase Total Protein Albumin Urine Opiates Screen Urine Fentanyl Screen Ur Barbiturates Screen Ur Phencyclidine Scrn Ur Amphetamines Screen U Benzodiazepines Scrn Urine Cocaine Screen U Marijuana (THC) Screen Ethyl Alcohol Coronavirus (PCR) Influenza Type A (PCR) Influenza Type B (PCR) RSV RNA Qual (PCR) Imaging Radiology Impressions: ITS Impressions Chest X-Ray 06/08/21 19:50 IMPRESSION: No acute cardiopulmonary findings. Meds/Allergies Meds Home Medications Acetaminophen (Acetaminophen 325 Mg Tablet) 650 mg PO Q6H PRN PRN Reason: Headache/Pain Mild Scale (1-3) Last Admin: 06/10/21 09:08 Dose: 650 mg Documented by: Al Hydroxide/Mg Hydroxide (Magnesium Hydrox/Alum Hydrox 30 Ml Oral.Susp) 30 ml PO Q6H PRN PRN Reason: Heartburn/Nausea Benzonatate (Benzonatate 100 Mg Capsule) 100 mg PO TID PRN PRN Reason: Cough Last Admin: 06/10/21 18:05 Dose: 100 mg Documented by: Escitalopram Oxalate (Escitalopram Oxalate 5 Mg Tablet) 5 mg PO DAILY MIESHA Hydroxyzine HCl (Hydroxyzine Hcl 25 Mg Tablet) 25 mg PO BEDTIME PRN PRN Reason: Anxiety Insulin Glargine (Insulin Glargine,Hum.Rec.Anlog 100 Unit/Ml 10 Ml Vial) 60 unit SUBCUT BID MIESHA Last Admin: 06/10/21 09:07 Dose: 60 unit Documented by: Lorazepam (Lorazepam 1 Mg Tablet) 1 mg PO Q4H PRN PRN Reason: severe anxiety Last Admin: 06/10/21 13:24 Dose: 1 mg Documented by: Magnesium Hydroxide (Milk Of Magnesia 30 Ml Oral.Susp) 30 ml PO DAILY PRN PRN Reason: Constipation Olanzapine (Olanzapine 5 Mg Tablet) 5 mg PO BID PRN PRN Reason: agitation, paranoia Senna/Docusate Sodium (Sennosides/Docusate Sodium Tablet) 1 tab PO DAILY PRN PRN Reason: Constipation Trazodone HCl (Trazodone Hcl 50 Mg Tablet) 50 mg PO BEDTIME PRN PRN Reason: Insomnia Allergies Allergies Allergy/AdvReac Type Severity Reaction Status Date / Time insulin aspart [From Novolog] Allergy Unknown HYPOGLYCMEI Verified 06/08/21 23:08 A Novolog Allergy Unknown Itchy Eyes Uncoded 01/26/21 13:01 Mental Status Exam Mental Status Exam Patient Appearance: Appropriate Patient Orientation: Person, Place, Time and Situation Level of Consciousness: Alert Patient Behavior: Appropriate, Talkative, Cooperative and Good Eye Contact Mood Description: Suspicious, Anxious and Apprehensive Affect Description: Anxious Patient Cognition Impaired: No Ability to Follow Directions: Good Speech Pattern: Spontaneous Speech Memory Description: Episodic Impaired Hallucinations: None Delusions: Not Present Thought Process: Distracted and Rumination Thought Content: positive for [place], positive for Circumstantial and positive for Suicidal Ideation (reports she is feeling safe on the unit.) Depressive Symptoms: Increased Anxiety, Diff. Making Decisions, Hopelessness, Unhappiness, Increased Fatigue, Loss of Energy and Difficulty Concentrating Judgement: Fair Assessment & Plan Assessment & Plan (1) Schizoaffective disorder, depressive type: Status: Chronic Code(s): F25.1 - Schizoaffective disorder, depressive type Assessment and Plan: 60 yo female, hx of schizoaffective disorder, depressed type. Reports an increase in symptoms. Symptoms appear different at different times to team. Several psychosocial stressors-chronic, along with medical symptoms which pt identifies as precipitants. Plan: Pt will NOT accept antipsychotics scheduled. Olanzapine 5 mg bid prn psychosis, agitation Lexapro 5 mg daily Tessason Pearls tid prn cough. Hospitalist may need to be involved. Dietary consult for calorie count-pt reporting she is not allowed to eat enough Senna prn constipation EKG, TSH, FT4, B12, Vit D, Lipid panel, A1C Aftercare planning Reason for continued inpatient stay Substantial Risk for: harm to self, inability to function, rapid decompensation and med/psych decompensation
[2021-06-10 19:30] VITALS: BP 173/79; PULSE 86; TEMP 36.4
[2021-06-10 20:36] LABS: Glucose, Whole Blood 199 mg/dL (60-115)
[2021-06-11 06:00] VITALS: BP 151/72; PULSE 75; RESP 16; TEMP 35.9; O2SAT 97
[2021-06-11 06:54] LABS: Glucose, Whole Blood 62 mg/dL (60-115)
--- NOTE | 2021-06-11 09:00 | ECG_ITS ---
Test Reason : CHECK QT Blood Pressure : / mmHG Vent. Rate : 085 BPM Atrial Rate : 085 BPM P-R Int : 142 ms QRS Dur : 078 ms QT Int : 366 ms P-R-T Axes : 070 042 058 degrees QTc Int : 435 ms Normal sinus rhythm Nonspecific ST abnormality Abnormal ECG When compared with ECG of 02-FEB-2021 14:01, No significant change was found Referred By: Shira Nunn Electronically Signed By:JANNETTE GARCIA
[2021-06-11 09:04] LABS: Estimated Average Glucose 214 mg/dL; Hemoglobin A1c % 9.1 %
[2021-06-11 09:11] LABS: Cholesterol 162 mg/dL; HDL Cholesterol 43 mg/dL; LDL Cholesterol Calculated 104 mg/dl; Triglycerides 77 mg/dL
[2021-06-11] MEDS: Insulin Glargine,Hum.rec.anlog 100 UNIT/ML 10 ML VIAL 60 UNIT SUBCUT ×2 (09:22→20:03)
[2021-06-11] MEDS: Escitalopram Oxalate 5 MG TABLET PO (09:23)
[2021-06-11] MEDS: Benzonatate 100 MG CAPSULE 200 MG PO ×2 (09:28→15:22)
[2021-06-11 09:33] LABS: TSH reflex Free T4 0.54 uIU/mL (0.32-4.0); Vitamin D 25-OH Total 13.4 ng/mL (>30)
[2021-06-11 09:59] LABS: Folate 16.7 ng/mL (> or = 4.0); Vitamin B12 613 pg/mL (200-900)
[2021-06-11] MEDS: Acetaminophen 325 MG TABLET 650 MG PO ×2 (12:26→20:06)
[2021-06-11] MEDS: LORazepam 1 MG TABLET PO ×2 (12:26→20:07)
[2021-06-11] MEDS: Cyclobenzaprine HCl 5 MG TABLET PO ×2 (17:06→20:06)
[2021-06-11 17:23] LABS: Glucose, Whole Blood 243 mg/dL (60-115)
[2021-06-11 17:27] VITALS: BP 183/79; PULSE 89; RESP 18; TEMP 36.2; O2SAT 100
[2021-06-11] MEDS: Sennosides/Docusate Sodium TABLET 1 TAB PO (20:06)
[2021-06-11 21:04] LABS: Glucose, Whole Blood 225 mg/dL (60-115)
--- NOTE | 2021-06-11 21:50 | P.PNPSI_ITS ---
Subjective Subjective Date of Service: 06/11/21 Reason For Visit: depression Subjective Notes: Conditional Voluntary Interim History: Aminah reports she was able to sleep last night. She initiated Lexapro this a.m. without adverse effect. She reports her cough is improved however she reports her muscles are still sore from coughing. Reports to team anxiety is high 04/16 and identifies rationale to tw as having to make a decision as to where to go next-she states she is hopeful regarding medications helping. Encouraged to attend group therapy while on the unit which she reports she has been attending some of the groups offered. Medication Compliance: Yes Side effects from medications: No Attending Groups: Intermittent Review of Systems Acute medical concerns: No cough is still a concern, pt reports some improvement. Medical Review of Systems: unchanged Review of Systems Respiratory: Reports cough Psychiatric: Reports anxiety, Reports depression, Reports difficulty concentrating, Reports hopelessness, Reports irritability, Reports paranoia and Reports suicidal ideation (denies) Mental Status Exam Mental Status Exam Patient Appearance: Appropriate Patient Orientation: Person, Place, Time and Situation Level of Consciousness: Appropriate and Alert Patient Behavior: Appropriate, Guarded, Talkative, Cooperative, Anxious, Distractible and Good Eye Contact Mood Description: Anxious and Apprehensive Affect Description: Constricted Patient Cognition Impaired: No Ability to Follow Directions: Good Speech Pattern: Spontaneous Speech Memory Description: Intact Hallucinations: None Delusions: Paranoid Ideation (mild, intermittent) Thought Process: Rumination and Goal Oriented Thought Content: positive for [place], positive for Circumstantial, positive for Goal Oriented and positive for Suicidal Ideation (denies) Depressive Symptoms: Increased Anxiety, Increased Irritability, Thoughts of /Suicide (denies) and Low Self Esteem Judgement: Fair Diagnostics Vital Signs (24Hr): Vital Signs - 24 hr 06/11/21 06:00 06/11/21 17:27 Temperature 96.7 F L 97.1 F Pulse Rate 75 89 Respiratory Rate 16 18 Blood Pressure 151/72 H 183/79 H Pulse Oximetry 97 100 Body Mass Index 38.7 Labs Results: 06/08/21 21:32 06/08/21 21:32 Labs: Laboratory Results - last 48 hr 06/10/21 06/10/21 06/10/21 06:51 11:47 17:00 POC Glucose 54 L* 101 176 H Estimat Average Glucose Hemoglobin A1c % Triglycerides Cholesterol LDL Cholesterol, Calc HDL Cholesterol Vitamin B12 25-OH Vitamin D Total Folate TSH 06/10/21 06/11/21 06/11/21 20:09 06:50 08:40 POC Glucose 199 H 62 Estimat Average Glucose 214 Hemoglobin A1c % 9.1 Triglycerides Cholesterol LDL Cholesterol, Calc HDL Cholesterol Vitamin B12 25-OH Vitamin D Total Folate TSH 06/11/21 06/11/21 06/11/21 08:40 08:40 17:02 POC Glucose 243 H Estimat Average Glucose Hemoglobin A1c % Triglycerides 77 Cholesterol 162 LDL Cholesterol, Calc 104 HDL Cholesterol 43 Vitamin B12 613 25-OH Vitamin D Total 13.4 Folate 16.7 TSH 0.54 06/11/21 20:02 POC Glucose 225 H Estimat Average Glucose Hemoglobin A1c % Triglycerides Cholesterol LDL Cholesterol, Calc HDL Cholesterol Vitamin B12 25-OH Vitamin D Total Folate TSH Imaging Radiology Impressions: ITS Impressions Chest X-Ray 06/08/21 19:50 IMPRESSION: No acute cardiopulmonary findings. Medications Medications Current Medications Acetaminophen (Acetaminophen 325 Mg Tablet) 650 mg PO Q6H PRN PRN Reason: Headache/Pain Mild Scale (1-3) Last Admin: 06/11/21 20:06 Dose: 650 mg Documented by: Al Hydroxide/Mg Hydroxide (Magnesium Hydrox/Alum Hydrox 30 Ml Oral.Susp) 30 ml PO Q6H PRN PRN Reason: Heartburn/Nausea Benzonatate (Benzonatate 100 Mg Capsule) 200 mg PO TID PRN PRN Reason: Cough Last Admin: 06/11/21 15:22 Dose: 200 mg Documented by: Cyclobenzaprine HCl (Cyclobenzaprine Hcl 5 Mg Tablet) 5 mg PO TID PRN PRN Reason: Pain, Mild (Pain Scale 1-3) Last Admin: 06/11/21 20:06 Dose: 5 mg Documented by: Escitalopram Oxalate (Escitalopram Oxalate 5 Mg Tablet) 5 mg PO DAILY [facility] Last Admin: 06/11/21 09:23 Dose: 5 mg Documented by: Hydroxyzine HCl (Hydroxyzine Hcl 25 Mg Tablet) 25 mg PO BEDTIME PRN PRN Reason: Anxiety Insulin Glargine (Insulin Glargine,Hum.Rec.Anlog 100 Unit/Ml 10 Ml Vial) 60 unit SUBCUT BID [facility] Last Admin: 06/11/21 20:03 Dose: 60 unit Documented by: Lorazepam (Lorazepam 1 Mg Tablet) 1 mg PO Q4H PRN PRN Reason: severe anxiety Last Admin: 06/11/21 20:07 Dose: 1 mg Documented by: Magnesium Hydroxide (Milk Of Magnesia 30 Ml Oral.Susp) 30 ml PO DAILY PRN PRN Reason: Constipation Olanzapine (Olanzapine 5 Mg Tablet) 5 mg PO BID PRN PRN Reason: agitation, paranoia Senna/Docusate Sodium (Sennosides/Docusate Sodium Tablet) 1 tab PO DAILY PRN PRN Reason: Constipation Last Admin: 06/11/21 20:06 Dose: 1 tab Documented by: Trazodone HCl (Trazodone Hcl 50 Mg Tablet) 50 mg PO BEDTIME PRN PRN Reason: Insomnia Allergies Allergies Allergy/AdvReac Type Severity Reaction Status Date / Time insulin aspart [From Novolog] Allergy Unknown HYPOGLYCMEI Verified 06/08/21 23:08 A Novolog Allergy Unknown Itchy Eyes Uncoded 01/26/21 13:01 Assessment & Plan Assessment & Plan (1) Schizoaffective disorder, depressive type: Status: Chronic Code(s): F25.1 - Schizoaffective disorder, depressive type Assessment and Plan: 60 yo female, hx of schizoaffective disorder, depressed type. Reports an increase in symptoms. Symptoms appear different at different times to team. Several psychosocial stressors-chronic, along with medical symptoms which pt identifies as precipitants. Plan: Pt will NOT accept antipsychotics scheduled. Olanzapine 5 mg bid prn psychosis, agitation Lexapro 5 mg daily Tessason Pearls tid prn cough. Hospitalist may need to be involved. Dietary consult for calorie count-pt reporting she is not allowed to eat enough Senna prn constipation EKG, TSH, FT4, B12, Vit D, Lipid panel, A1C Aftercare planning 06/11/21: Reports some improvement in cough. Tolerating medication changes EKG-Non specific ST-T Wave changes QTc 431, Vitamin D 13.4 A1C 9.1 Will review with pt for interventions. Continue current regime. Greater than 50% of the session was spent on counseling and/or coordination of care Patient educated on: medication risk/benefits and therapeutic strategies Informed Consent: understands Reason for contiued inpatient stay Substantial Risk for: inability to function and rapid decompensation
[2021-06-12 06:00] VITALS: BP 144/73; PULSE 80; RESP 16; TEMP 35.6; O2SAT 99
[2021-06-12 06:36] LABS: Glucose, Whole Blood 75 mg/dL (60-115)
[2021-06-12] MEDS: Insulin Glargine,Hum.rec.anlog 100 UNIT/ML 10 ML VIAL 60 UNIT SUBCUT ×2 (09:17→20:03)
[2021-06-12] MEDS: Escitalopram Oxalate 5 MG TABLET PO (09:18)
[2021-06-12] MEDS: Benzonatate 100 MG CAPSULE 200 MG PO ×2 (09:22→20:03)
[2021-06-12] MEDS: Acetaminophen 325 MG TABLET 650 MG PO ×2 (11:17→20:02)
[2021-06-12 12:13] LABS: Glucose, Whole Blood 120 mg/dL (60-115)
[2021-06-12] MEDS: Triamcinolone Acet 0.1 % Oint 15 GM TUBE 1 APPL TOPICAL (16:49)
[2021-06-12 17:06] VITALS: BP 159/73; PULSE 94; TEMP 36.5; O2SAT 96
--- NOTE | 2021-06-12 19:24 | P.PNPSI_ITS ---
Subjective Subjective Date of Service: 06/12/21 Reason For Visit: depression Interim History: Aminah reports she would like to discharge early next week, allowing time for titration of Lexapro and discharge planning. She believes she will attempt to live in [place]. Discussed her chronic situation of homelessness and explored if mood/thought symptoms were a part of her having been unable to find a comfortable living situation. She states she is unsure. Tolerating regime. No evidence of cough today. Medication Compliance: Yes Side effects from medications: No Attending Groups: Yes Review of Systems Acute medical concerns: No Medical Review of Systems: unchanged Review of Systems Psychiatric: Reports abnormal sleep pattern, Reports anxiety, Reports depression, Reports difficulty concentrating, Reports hopelessness, Reports irritability, Reports paranoia and Reports suicidal ideation Mental Status Exam Mental Status Exam Patient Appearance: Appropriate Patient Orientation: Person, Place, Time and Situation Level of Consciousness: Appropriate and Alert Patient Behavior: Appropriate, Guarded, Talkative, Cooperative, Anxious, Distractible and Good Eye Contact Mood Description: Anxious and Apprehensive Affect Description: Constricted Patient Cognition Impaired: No Ability to Follow Directions: Good Speech Pattern: Spontaneous Speech Memory Description: Intact Hallucinations: None Delusions: Paranoid Ideation (mild, intermittent) Thought Process: Rumination and Goal Oriented Thought Content: positive for [place], positive for Circumstantial, positive for Goal Oriented and positive for Suicidal Ideation (denies) Depressive Symptoms: Increased Anxiety, Increased Irritability, Thoughts of /Suicide (denies) and Low Self Esteem Judgement: Fair Diagnostics Vital Signs (24Hr): Vital Signs - 24 hr 06/12/21 06:00 06/12/21 17:06 Temperature 96.1 F L 97.7 F Pulse Rate 80 94 Respiratory Rate 16 Blood Pressure 144/73 H 159/73 H Pulse Oximetry 99 96 Body Mass Index 38.7 Labs Results: 06/08/21 21:32 06/08/21 21:32 Labs: Laboratory Results - last 48 hr 06/10/21 06/11/21 06/11/21 20:09 06:50 08:40 POC Glucose 199 H 62 Estimat Average Glucose 214 Hemoglobin A1c % 9.1 Triglycerides Cholesterol LDL Cholesterol, Calc HDL Cholesterol Vitamin B12 25-OH Vitamin D Total Folate TSH 06/11/21 06/11/21 06/11/21 08:40 08:40 17:02 POC Glucose 243 H Estimat Average Glucose Hemoglobin A1c % Triglycerides 77 Cholesterol 162 LDL Cholesterol, Calc 104 HDL Cholesterol 43 Vitamin B12 613 25-OH Vitamin D Total 13.4 Folate 16.7 TSH 0.54 06/11/21 06/12/21 06/12/21 20:02 06:32 12:10 POC Glucose 225 H 75 120 H Estimat Average Glucose Hemoglobin A1c % Triglycerides Cholesterol LDL Cholesterol, Calc HDL Cholesterol Vitamin B12 25-OH Vitamin D Total Folate TSH Imaging Radiology Impressions: ITS Impressions Chest X-Ray 06/08/21 19:50 IMPRESSION: No acute cardiopulmonary findings. Medications Medications Current Medications Acetaminophen (Acetaminophen 325 Mg Tablet) 650 mg PO Q6H PRN PRN Reason: Headache/Pain Mild Scale (1-3) Last Admin: 06/12/21 11:17 Dose: 650 mg Documented by: Al Hydroxide/Mg Hydroxide (Magnesium Hydrox/Alum Hydrox 30 Ml Oral.Susp) 30 ml PO Q6H PRN PRN Reason: Heartburn/Nausea Benzonatate (Benzonatate 100 Mg Capsule) 200 mg PO TID PRN PRN Reason: Cough Last Admin: 06/12/21 09:22 Dose: 200 mg Documented by: Cyclobenzaprine HCl (Cyclobenzaprine Hcl 10 Mg Tablet) 10 mg PO BEDTIME PRN PRN Reason: pain Escitalopram Oxalate (Escitalopram Oxalate 5 Mg Tablet) 5 mg PO DAILY [facility] Last Admin: 06/12/21 09:18 Dose: 5 mg Documented by: Hydroxyzine HCl (Hydroxyzine Hcl 25 Mg Tablet) 25 mg PO BEDTIME PRN PRN Reason: Anxiety Insulin Glargine (Insulin Glargine,Hum.Rec.Anlog 100 Unit/Ml 10 Ml Vial) 60 unit SUBCUT BID [facility] Last Admin: 06/12/21 09:17 Dose: 60 unit Documented by: Lorazepam (Lorazepam 1 Mg Tablet) 1 mg PO Q4H PRN PRN Reason: severe anxiety Last Admin: 06/11/21 20:07 Dose: 1 mg Documented by: Magnesium Hydroxide (Milk Of Magnesia 30 Ml Oral.Susp) 30 ml PO DAILY PRN PRN Reason: Constipation Olanzapine (Olanzapine 5 Mg Tablet) 5 mg PO BID PRN PRN Reason: agitation, paranoia Senna/Docusate Sodium (Sennosides/Docusate Sodium Tablet) 1 tab PO DAILY PRN PRN Reason: Constipation Last Admin: 06/11/21 20:06 Dose: 1 tab Documented by: Trazodone HCl (Trazodone Hcl 50 Mg Tablet) 50 mg PO BEDTIME PRN PRN Reason: Insomnia Triamcinolone Acetonide (Triamcinolone Acet 0.1 % Oint 15 Gm Tube) 1 appl TOPICAL BID MIESHA Last Admin: 06/12/21 16:49 Dose: 1 appl Documented by: Allergies Allergies Allergy/AdvReac Type Severity Reaction Status Date / Time insulin aspart [From Novolog] Allergy Unknown HYPOGLYCMEI Verified 06/08/21 23:08 A Novolog Allergy Unknown Itchy Eyes Uncoded 01/26/21 13:01 Assessment & Plan Assessment & Plan (1) Schizoaffective disorder, depressive type: Status: Chronic Code(s): F25.1 - Schizoaffective disorder, depressive type Assessment and Plan: 60 yo female, hx of schizoaffective disorder, depressed type. Reports an increase in symptoms. Symptoms appear different at different times to team. Several psychosocial stressors-chronic, along with medical symptoms which pt identifies as precipitants. Plan: Pt will NOT accept antipsychotics scheduled. Olanzapine 5 mg bid prn psychosis, agitation Lexapro 5 mg daily Tessason Pearls tid prn cough. Hospitalist may need to be involved. Dietary consult for calorie count-pt reporting she is not allowed to eat enough Senna prn constipation EKG, TSH, FT4, B12, Vit D, Lipid panel, A1C Aftercare planning 06/11/21: Reports some improvement in cough. Tolerating medication changes EKG-Non specific ST-T Wave changes QTc 431, Vitamin D 13.4 A1C 9.1 Will review with pt for interventions. Continue current regime. 06/12/21: Continue current regime. Greater than 50% of the session was spent on counseling and/or coordination of care Reason for contiued inpatient stay Substantial Risk for: harm to self, inability to function and rapid decompensation
[2021-06-12 20:01] LABS: Glucose, Whole Blood 125 mg/dL (60-115)
[2021-06-12] MEDS: Cyclobenzaprine HCl 10 MG TABLET PO (20:02)
[2021-06-13 06:00] VITALS: BP 120/57; PULSE 86; RESP 16; TEMP 36.3; O2SAT 95
[2021-06-13 06:42] LABS: Glucose, Whole Blood 48 mg/dL (60-115)
[2021-06-13 07:00] VITALS: BMI 40.6
[2021-06-13 08:17] LABS: Glucose, Whole Blood 64 mg/dL (60-115)
[2021-06-13] MEDS: Escitalopram Oxalate 5 MG TABLET PO (09:22)
[2021-06-13] MEDS: LORazepam 1 MG TABLET PO ×2 (09:55→20:58)
[2021-06-13] MEDS: Insulin Glargine,Hum.rec.anlog 100 UNIT/ML 10 ML VIAL 60 UNIT SUBCUT ×2 (10:07→20:59)
--- NOTE | 2021-06-13 14:18 | PM.GYNCN ---
DOCTOR OF AUDIOLOGY - CN: HPI Data of Consult Consult date: 06/13/21 Requesting Physician: Shira Nunn Primary Care Provider: Unknown Physician Consult Narrative Narrative: I was consulted regarding Aminah Bro who is a 60 year old female admitted on M 5 [place]. The patient gives a history of exposure to gonorrhea , chlamydia and Trichomonas and is complaining of vaginal discharge for the last few days. cc:: CC: Shira Nunn MUSIC SOUND LIGHT TECHNICIAN - Review of Systems Review of Systems ROS Unobtainable: All systems reviewed & are unremarkable except as noted in HPI and below Cardiovascular: Denies Palpatations, Loss of consciousness or Chest pain Respiratory: Denies Cough, Wheezing or Shortness of breath Musculoskeletal: Denies Low back pain Gastrointestinal: Denies Heartburn, Constipation, Diarrhea, Nausea or Vomiting Genitourinary: Denies Pain with urination, Burning with urination or Urinary frequency Neurological: Denies Migranes Psychological: Denies Depression OB PMFSH Past Medical History Medical History CVA (cerebral vascular accident) Diabetes Schizoaffective disorder, depressive type Surgical History Surgical History H/O: hysterectomy Social History Social History Household Members: None Household Members Other:: patient reports being alone and homeless for 17 years Housing: Homeless Do you presently have visiting nurse or other home services: No Unable to assess alcohol history related to: Unknown Patient Tobacco Use Status: Never used Tobacco Second Hand Smoke Exposure: No service: No Sexual orientation: Did not discuss Meds Allergies Allergy/AdvReac Type Severity Reaction Status Date / Time insulin aspart [From Novolog] Allergy Unknown HYPOGLYCMEI Verified 06/08/21 23:08 A Novolog Allergy Unknown Itchy Eyes Uncoded 01/26/21 13:01 Active Medications: Current Medications Acetaminophen (Acetaminophen 325 Mg Tablet) 650 mg PO Q6H PRN PRN Reason: Headache/Pain Mild Scale (1-3) Last Admin: 06/12/21 20:02 Dose: 650 mg Documented by: Al Hydroxide/Mg Hydroxide (Magnesium Hydrox/Alum Hydrox 30 Ml Oral.Susp) 30 ml PO Q6H PRN PRN Reason: Heartburn/Nausea Benzonatate (Benzonatate 100 Mg Capsule) 200 mg PO TID PRN PRN Reason: Cough Last Admin: 06/12/21 20:03 Dose: 200 mg Documented by: Cyclobenzaprine HCl (Cyclobenzaprine Hcl 10 Mg Tablet) 20 mg PO BEDTIME [facility] Escitalopram Oxalate (Escitalopram Oxalate 10 Mg Tablet) 10 mg PO DAILY [facility] Hydroxyzine HCl (Hydroxyzine Hcl 25 Mg Tablet) 25 mg PO BEDTIME PRN PRN Reason: Anxiety Insulin Glargine (Insulin Glargine,Hum.Rec.Anlog 100 Unit/Ml 10 Ml Vial) 60 unit SUBCUT BID [facility] Last Admin: 06/13/21 10:07 Dose: 60 unit Documented by: Lorazepam (Lorazepam 1 Mg Tablet) 1 mg PO Q4H PRN PRN Reason: severe anxiety Last Admin: 06/13/21 09:55 Dose: 1 mg Documented by: Magnesium Hydroxide (Milk Of Magnesia 30 Ml Oral.Susp) 30 ml PO DAILY PRN PRN Reason: Constipation Mirtazapine (Mirtazapine 7.5 Mg Tablet) 7.5 mg PO BEDTIME [facility] Olanzapine (Olanzapine 5 Mg Tablet) 5 mg PO BID PRN PRN Reason: agitation, paranoia Senna/Docusate Sodium (Sennosides/Docusate Sodium Tablet) 1 tab PO DAILY PRN PRN Reason: Constipation Last Admin: 06/11/21 20:06 Dose: 1 tab Documented by: Triamcinolone Acetonide (Triamcinolone Acet 0.1 % Oint 15 Gm Tube) 1 appl TOPICAL BID [facility] Last Admin: 06/13/21 10:24 Dose: Not Given Documented by: Home Medications Medication Instructions Recorded Confirmed Last Taken Type insulin glargine 100 unit/mL (3 60 unit SUBCUT BID 01/26/21 06/09/21 02/01/21 History mL) subcutaneous pen (Lantus Solostar U-100 Insulin) rosuvastatin 20 mg tablet 1 tab PO BEDTIME 01/26/21 06/09/21 02/01/21 History clonazepam 0.5 mg tablet 0.5 mg PO BEDTIME PRN 06/09/21 06/09/21 Unknown History DOCTOR OF AUDIOLOGY Physical Exam Vitals Vital signs: Temp Pulse Resp BP Pulse Ox 97.4 F 86 16 120/57 L 95 06/13/21 06:00 06/13/21 06:00 06/13/21 06:00 06/13/21 06:00 06/13/21 06:00 Body Mass Index 38.7 Constitutional General Appearance: Healthy appearing, Well-nourished and Well-developed Psychiatric Mood and Affect: active and alert, normal mood and normal affect Skin Appearance: No rashes and No lesions Lungs Respiratory Effort: No intercostal retractions Auscultation: Clear to auscultation Cardiovascular Auscultation: RRR Abdomen Auscultation/Inspection/Palpation: Normal bowel sounds, Soft, Non-distended and No tenderness Female Genitalia (Pelvic) Exam: Declined by Patient DOCTOR OF AUDIOLOGY - Results Labs CBC & Chem 7: 06/08/21 21:32 06/08/21 21:32 Assessment and Plan (1) Exposure to gonorrhea: Status: Acute Patient is adamantly declining vaginal exam. Explained to the patient the sensitivity of gonorrhea and chlamydia with a urine test is less than if collected from the cervix and BV panel is self collected with vaginal swept might be falsely negative the patient verbalized understanding and still declines. Will send urine for GC and chlamydia, gave the patient is vaginal swab for BV panel to collected from the vaginal wall. Will treat for gonorrhea/chlamydia/Trichomonas, with ceftriaxone 500 mg IM for gonorrhea azithromycin 1 g p.o. as an alternative to doxycycline since the patient develops nausea and vomiting from doxycycline, and Flagyl 500 mg p.o. b.i.d. for 7 days or Trichomonas for STDs hepatitis B surface antigen, HIV, hepatitis-C antibody, RPR and schedule patient for a test of cure in 2 weeks in the office and in 3 months. All questions answered, the patient verbalized understanding Will discontinue Atarax since it interacts with Levaquin
[2021-06-13] MEDS: levoFLOXacin 500 MG TABLET PO (16:33)
[2021-06-13] MEDS: cefTRIAXone sodium 500 MG VIAL IM (17:23)
[2021-06-13 19:45] VITALS: BP 162/74; PULSE 83; TEMP 36.8
--- NOTE | 2021-06-13 20:42 | P.PNPSI_ITS ---
Subjective Subjective Date of Service: 06/13/21 Reason For Visit: depression Subjective Notes: Conditional Voluntary Interim History: Aminah reports she is tolerating Lexapro and believes we can titrate without incident. Discussed sleep issues and sx along with options for assistance. She reports sx of vaginal infection, possible STD. Pt was able to see Dr. Barba today which is much appreciated. She is having cultures done. Levaquin initiated. Hydroxyzine stopped due to prolongation of QT. Discussed discharge planning- I am feeling confused and unsure - discussed. Medication Compliance: Yes Side effects from medications: No Attending Groups: Yes Review of Systems Acute medical concerns: No Medical Review of Systems: changed Review of Systems: LISW consult appreciated. Review of Systems Genitourinary: Reports vaginal discharge, Reports vaginal odor and Reports vaginal pruritus Psychiatric: Reports abnormal sleep pattern, Reports anxiety and Reports depression Mental Status Exam Mental Status Exam Patient Appearance: Appropriate Patient Orientation: Person, Place, Time and Situation Level of Consciousness: Appropriate and Alert Patient Behavior: Appropriate, Talkative, Cooperative, Anxious, Distractible and Good Eye Contact Mood Description: Anxious and Apprehensive Affect Description: Constricted Patient Cognition Impaired: No Ability to Follow Directions: Good Speech Pattern: Spontaneous Speech Memory Description: Intact Hallucinations: None Thought Process: Rumination and Goal Oriented Thought Content: positive for [place], positive for Circumstantial and positive for Goal Oriented Depressive Symptoms: Increased Anxiety, Thoughts of /Suicide (denies) and Low Self Esteem Judgement: Fair Diagnostics Vital Signs (24Hr): Vital Signs - 24 hr 06/13/21 06:00 Temperature 97.4 F Pulse Rate 86 Respiratory Rate 16 Blood Pressure 120/57 L Pulse Oximetry 95 Body Mass Index 40.6 Labs Results: 06/08/21 21:32 06/08/21 21:32 Labs: Laboratory Results - last 48 hr 06/11/21 06/12/21 06/12/21 20:02 06:32 12:10 POC Glucose 225 H 75 120 H 06/12/21 06/13/21 06/13/21 19:56 06:32 08:12 POC Glucose 125 H 48 L* 64 Imaging Radiology Impressions: ITS Impressions Chest X-Ray 06/08/21 19:50 IMPRESSION: No acute cardiopulmonary findings. Medications Medications Current Medications Acetaminophen (Acetaminophen 325 Mg Tablet) 650 mg PO Q6H PRN PRN Reason: Headache/Pain Mild Scale (1-3) Last Admin: 06/12/21 20:02 Dose: 650 mg Documented by: Al Hydroxide/Mg Hydroxide (Magnesium Hydrox/Alum Hydrox 30 Ml Oral.Susp) 30 ml PO Q6H PRN PRN Reason: Heartburn/Nausea Benzonatate (Benzonatate 100 Mg Capsule) 200 mg PO TID PRN PRN Reason: Cough Last Admin: 06/12/21 20:03 Dose: 200 mg Documented by: Cyclobenzaprine HCl (Cyclobenzaprine Hcl 10 Mg Tablet) 20 mg PO BEDTIME [facility] Escitalopram Oxalate (Escitalopram Oxalate 10 Mg Tablet) 10 mg PO DAILY [facility] Insulin Glargine (Insulin Glargine,Hum.Rec.Anlog 100 Unit/Ml 10 Ml Vial) 60 unit SUBCUT BID [facility] Last Admin: 06/13/21 10:07 Dose: 60 unit Documented by: Levofloxacin (Levofloxacin 500 Mg Tablet) 500 mg PO Q24H [facility] Stop: 06/20/21 14:59 Last Admin: 06/13/21 16:33 Dose: 500 mg Documented by: Lorazepam (Lorazepam 1 Mg Tablet) 1 mg PO Q4H PRN PRN Reason: severe anxiety Last Admin: 06/13/21 09:55 Dose: 1 mg Documented by: Magnesium Hydroxide (Milk Of Magnesia 30 Ml Oral.Susp) 30 ml PO DAILY PRN PRN Reason: Constipation Metronidazole (Metronidazole 500 Mg Tablet) 500 mg PO BID [facility] Stop: 06/20/21 14:28 Mirtazapine (Mirtazapine 7.5 Mg Tablet) 7.5 mg PO BEDTIME [facility] Olanzapine (Olanzapine 5 Mg Tablet) 5 mg PO BID PRN PRN Reason: agitation, paranoia Senna/Docusate Sodium (Sennosides/Docusate Sodium Tablet) 1 tab PO DAILY PRN PRN Reason: Constipation Last Admin: 06/11/21 20:06 Dose: 1 tab Documented by: Triamcinolone Acetonide (Triamcinolone Acet 0.1 % Oint 15 Gm Tube) 1 appl TOPICAL BID [facility] Last Admin: 06/13/21 10:24 Dose: Not Given Documented by: Allergies Allergies Allergy/AdvReac Type Severity Reaction Status Date / Time insulin aspart [From Novolog] Allergy Unknown HYPOGLYCMEI Verified 06/08/21 23:08 A Novolog Allergy Unknown Itchy Eyes Uncoded 01/26/21 13:01 Assessment & Plan Assessment & Plan (1) Exposure to gonorrhea: Status: Acute Code(s): Z20.2 - Contact with and (suspected) exposure to infections with a predominantly sexual mode of transmission (2) Schizoaffective disorder, depressive type: Status: Chronic Code(s): F25.1 - Schizoaffective disorder, depressive type Assessment and Plan: Pt is tolerating Lexapro. Will increase to 10 mg daily. She reports poor sleep, Remeron 7.5 mg hs ordered. She continues to refuse any atypical antipsychotic and has clear ideas on what treatments are appropriate for her at this time. Education provided which she accepted. LISW consultation appreciated. Assessment and Plan: Patient is adamantly declining vaginal exam. Explained to the patient the sensitivity of gonorrhea and chlamydia with a urine test is less than if collect ed from the cervix and BV panel is self collected with vaginal swept might be falsely negative the patient verbalized understanding and still declines. Will send urine for GC and chlamydia, gave the patient is vaginal swab for BV panel to collected from the vaginal wall. Will treat for gonorrhea/ chlamydia/Trichomonas, with ceftriaxone 500 mg IM for gonorrhea azithromycin 1 g p.o. as an alternative to doxycycline since the patient develops nausea and vomiting from doxycycline, and Flagyl 500 mg p.o. b.i.d. for 7 days or Trichomonas for STDs hepatitis B surface antigen, HIV, hepatitis-C antibody, RPR and schedule patient for a test of cure in 2 weeks in the office and in 3 months. All questions answered, the patient verbalized understanding Will discontinue Atarax since it interacts with Levaquin Greater than 50% of the session was spent on counseling and/or coordination of care Patient educated on: medication risk/benefits Informed Consent: understands Reason for contiued inpatient stay Substantial Risk for: harm to self, inability to function and rapid decompensation
[2021-06-13] MEDS: Acetaminophen 325 MG TABLET 650 MG PO (20:57)
[2021-06-13] MEDS: Cyclobenzaprine HCl 10 MG TABLET 20 MG PO (20:58)
[2021-06-13] MEDS: metroNIDAZOLE 500 MG TABLET PO (20:58)
[2021-06-13] MEDS: Mirtazapine 7.5 MG TABLET PO (20:59)
[2021-06-13] MEDS: Benzonatate 100 MG CAPSULE 200 MG PO (22:07)
[2021-06-13] MEDS: Milk of Magnesia 30 ML ORAL.SUSP PO (22:07)
[2021-06-13 22:49] LABS: Glucose, Whole Blood 230 mg/dL (60-115)
[2021-06-14 02:47] LABS: CT PCR NOT DETECTED (Not Detect.); NG PCR NOT DETECTED (Not Detect.)
[2021-06-14 06:00] VITALS: BP 114/58; PULSE 88; RESP 18; TEMP 36.7; O2SAT 98
[2021-06-14 07:16] LABS: Glucose, Whole Blood 107 mg/dL (60-115)
[2021-06-14] MEDS: Insulin Glargine,Hum.rec.anlog 100 UNIT/ML 10 ML VIAL 60 UNIT SUBCUT ×2 (09:18→20:09)
[2021-06-14] MEDS: Escitalopram Oxalate 10 MG TABLET PO (09:18)
[2021-06-14] MEDS: metroNIDAZOLE 500 MG TABLET PO ×2 (09:18→20:09)
[2021-06-14] MEDS: Benzonatate 100 MG CAPSULE 200 MG PO (09:20)
[2021-06-14] MEDS: levoFLOXacin 500 MG TABLET PO (14:45)
--- NOTE | 2021-06-14 15:32 | P.PNPSI_ITS ---
Subjective Subjective Date of Service: 06/14/21 Reason For Visit: depression Subjective Notes: Conditional Voluntary Interim History: TDN to 06/18. Planning to leave for [place] when discharged. Discussed stopping Lexapro-reports she is not liking the way she feels. Asks to keep low dose Remeron. Continues to decline any medication in the atypical or mood stabilizer group. Continues with ambivalence regarding A1C elevation of 9 and low Vitamin D in regards to intervention. Medication Compliance: Yes Side effects from medications: Yes Attending Groups: Yes Review of Systems Acute medical concerns: No Medical Review of Systems: unchanged Review of Systems Psychiatric: Reports abnormal sleep pattern, Reports anxiety and Reports depression Mental Status Exam Mental Status Exam Patient Appearance: Appropriate Patient Orientation: Person, Place, Time and Situation Level of Consciousness: Appropriate and Alert Patient Behavior: Appropriate, Talkative, Cooperative, Anxious, Distractible and Good Eye Contact Mood Description: Anxious and Apprehensive Affect Description: Constricted Patient Cognition Impaired: No Ability to Follow Directions: Good Speech Pattern: Spontaneous Speech Memory Description: Intact Hallucinations: None Thought Process: Rumination and Goal Oriented Thought Content: positive for [place], positive for Circumstantial and positive for Goal Oriented Depressive Symptoms: Increased Anxiety, Thoughts of /Suicide (denies) and Low Self Esteem Judgement: Fair Diagnostics Vital Signs (24Hr): Vital Signs - 24 hr 06/13/21 19:45 06/14/21 06:00 Temperature 98.2 F 98.0 F Pulse Rate 83 88 Respiratory Rate 18 Blood Pressure 162/74 H 114/58 L Pulse Oximetry 98 Body Mass Index 40.6 Labs Results: 06/08/21 21:32 06/08/21 21:32 Labs: Laboratory Results - last 48 hr 06/12/21 06/13/21 06/13/21 19:56 06:32 08:12 POC Glucose 125 H 48 L* 64 Chlam trachomat DNA PCR N.gonorrhoeae DNA (PCR) 06/13/21 06/13/21 06/14/21 15:02 20:43 07:12 POC Glucose 230 H 107 Chlam trachomat DNA PCR NOT DETECTED N.gonorrhoeae DNA (PCR) NOT DETECTED Imaging Radiology Impressions: ITS Impressions Chest X-Ray 06/08/21 19:50 IMPRESSION: No acute cardiopulmonary findings. Medications Medications Current Medications Acetaminophen (Acetaminophen 325 Mg Tablet) 650 mg PO Q6H PRN PRN Reason: Headache/Pain Mild Scale (1-3) Last Admin: 06/13/21 20:57 Dose: 650 mg Documented by: Al Hydroxide/Mg Hydroxide (Magnesium Hydrox/Alum Hydrox 30 Ml Oral.Susp) 30 ml PO Q6H PRN PRN Reason: Heartburn/Nausea Benzonatate (Benzonatate 100 Mg Capsule) 200 mg PO TID PRN PRN Reason: Cough Last Admin: 06/14/21 09:20 Dose: 200 mg Documented by: Cyclobenzaprine HCl (Cyclobenzaprine Hcl 10 Mg Tablet) 20 mg PO BEDTIME [facility] Last Admin: 06/13/21 20:58 Dose: 20 mg Documented by: Insulin Glargine (Insulin Glargine,Hum.Rec.Anlog 100 Unit/Ml 10 Ml Vial) 60 unit SUBCUT BID [facility] Last Admin: 06/14/21 09:18 Dose: 60 unit Documented by: Levofloxacin (Levofloxacin 500 Mg Tablet) 500 mg PO Q24H [facility] Stop: 06/20/21 14:59 Last Admin: 06/14/21 14:45 Dose: 500 mg Documented by: Lorazepam (Lorazepam 1 Mg Tablet) 1 mg PO Q4H PRN PRN Reason: severe anxiety Last Admin: 06/13/21 20:58 Dose: 1 mg Documented by: Magnesium Hydroxide (Milk Of Magnesia 30 Ml Oral.Susp) 30 ml PO DAILY PRN PRN Reason: Constipation Last Admin: 06/13/21 22:07 Dose: 30 ml Documented by: Metronidazole (Metronidazole 500 Mg Tablet) 500 mg PO BID [facility] Stop: 06/20/21 14:28 Last Admin: 06/14/21 09:18 Dose: 500 mg Documented by: Mirtazapine (Mirtazapine 7.5 Mg Tablet) 7.5 mg PO BEDTIME [facility] Last Admin: 06/13/21 20:59 Dose: 7.5 mg Documented by: Olanzapine (Olanzapine 5 Mg Tablet) 5 mg PO BID PRN PRN Reason: agitation, paranoia Senna/Docusate Sodium (Sennosides/Docusate Sodium Tablet) 1 tab PO DAILY PRN PRN Reason: Constipation Last Admin: 06/11/21 20:06 Dose: 1 tab Documented by: Triamcinolone Acetonide (Triamcinolone Acet 0.1 % Oint 15 Gm Tube) 1 appl TOPICAL BID [facility] Last Admin: 06/14/21 09:18 Dose: Not Given Documented by: Allergies Allergies Allergy/AdvReac Type Severity Reaction Status Date / Time insulin aspart [From Novolog] Allergy Unknown HYPOGLYCMEI Verified 06/08/21 23:08 A Novolog Allergy Unknown Itchy Eyes Uncoded 01/26/21 13:01 Assessment & Plan Assessment & Plan (1) Exposure to gonorrhea: Status: Acute Code(s): Z20.2 - Contact with and (suspected) exposure to infections with a predominantly sexual mode of transmission (2) Schizoaffective disorder, depressive type: Status: Chronic Code(s): F25.1 - Schizoaffective disorder, depressive type Assessment and Plan: Pt reports Lexapro SE and asks to discontinue. Continue Remeron 7.5 mg HS She continues to refuse any atypical antipsychotic or mood stabilizer and has clear ideas on what treatments are appropriate for her at this time. Education provided which she accepted. [employer] consultation appreciated. Assessment and Plan: Patient is adamantly declining vaginal exam. Explained to the patient the sensitivity of gonorrhea and chlamydia with a urine test is less than if collected from the cervix and BV panel is self collected with vaginal swept might be falsely negative the patient verbalized understanding and still declines. Will send urine for GC and chlamydia, gave the patient is vaginal swab for BV panel to collected from the vaginal wall. Will treat for gonorrhea/chlamydia/Trichomonas, with ceftriaxone 500 mg IM for gonorrhea azithromycin 1 g p.o. as an alternative to doxycycline since the patient develops nausea and vomiting from doxycycline, and Flagyl 500 mg p.o. b.i.d. for 7 days or Trichomonas for STDs hepatitis B surface antigen, HIV, hepatitis-C antibody, RPR and schedule patient for a test of cure in 2 weeks in the office and in 3 months. All questions answered, the patient verbalized understanding Will discontinue Atarax since it interacts with Levaquin Greater than 50% of the session was spent on counseling and/or coordination of care Patient educated on: medication risk/benefits and therapeutic strategies Informed Consent: understands Reason for contiued inpatient stay Substantial Risk for: harm to self, inability to function and rapid decompensation
[2021-06-14 18:00] VITALS: BP 142/74; PULSE 79; RESP 16; TEMP 36.6
[2021-06-14] MEDS: Cyclobenzaprine HCl 10 MG TABLET 20 MG PO (20:08)
[2021-06-14] MEDS: Acetaminophen 325 MG TABLET 650 MG PO (20:08)
[2021-06-14] MEDS: LORazepam 1 MG TABLET PO (20:09)
[2021-06-14] MEDS: Sennosides/Docusate Sodium TABLET 1 TAB PO (20:12)
[2021-06-15] MEDS: metroNIDAZOLE 500 MG TABLET PO ×2 (08:51→20:23)
[2021-06-15] MEDS: Insulin Glargine,Hum.rec.anlog 100 UNIT/ML 10 ML VIAL 60 UNIT SUBCUT ×2 (08:51→20:32)
[2021-06-15] MEDS: Benzonatate 100 MG CAPSULE 200 MG PO (08:51)
[2021-06-15 18:00] VITALS: BP 140/68; PULSE 88; RESP 18; TEMP 36.9; O2SAT 99
--- NOTE | 2021-06-15 20:01 | HO.PSYCHPN ---
Subjective Subjective Date of Service: 06/15/21 Reason For Visit: depression Subjective Notes: Conditional Voluntary and 3 Day Interim History: Aminah reports she is not taking Remeron, however, reports poor sleep. Discussed benefits of Remeron for sleep/anxiety. States she will trial this tonight. Discussed increase in A1C, low Vitamin D. Offered consult for DM which she declined. Declines Vitamin D supplement Discussed some SE from Levaquin, feeling queasy at times. Discussed importance of attempting to complete the course to effectively treat sx. Pt discussed concerns about prn Ativan-states she feels comparatively she has had improved results with Klonopin prn-will discontinue Ativan and change to Klonopin prn. Medication Compliance: No Attending Groups: Intermittent Review of Systems Acute medical concerns: No Medical Review of Systems: unchanged Review of Systems Reports behavioral changes Psychiatric: Reports abnormal sleep pattern, Reports anxiety, Reports behavioral changes and Reports irritability Mental Status Exam Mental Status Exam Patient Appearance: Appropriate Patient Orientation: Person, Place, Time and Situation Level of Consciousness: Appropriate and Alert Patient Behavior: Appropriate, Talkative, Cooperative, Anxious, Distractible and Good Eye Contact Mood Description: Anxious and Apprehensive Affect Description: Constricted Patient Cognition Impaired: No Ability to Follow Directions: Good Speech Pattern: Spontaneous Speech Memory Description: Intact Hallucinations: None Thought Process: Rumination and Goal Oriented Thought Content: positive for [place], positive for Circumstantial and positive for Goal Oriented Depressive Symptoms: Increased Anxiety, Thoughts of /Suicide (denies) and Low Self Esteem Judgement: Fair Diagnostics Vital Signs (24Hr): Body Mass Index 40.6 Labs Results: 06/08/21 21:32 06/08/21 21:32 Labs: Laboratory Results - last 48 hr 06/13/21 06/13/21 06/14/21 15:02 20:43 07:12 POC Glucose 230 H 107 Chlam trachomat DNA PCR NOT DETECTED N.gonorrhoeae DNA (PCR) NOT DETECTED Imaging Radiology Impressions: ITS Impressions Chest X-Ray 06/08/21 19:50 IMPRESSION: No acute cardiopulmonary findings. Medications Medications Current Medications Acetaminophen (Acetaminophen 325 Mg Tablet) 650 mg PO Q6H PRN PRN Reason: Headache/Pain Mild Scale (1-3) Last Admin: 06/14/21 20:08 Dose: 650 mg Documented by: Al Hydroxide/Mg Hydroxide (Magnesium Hydrox/Alum Hydrox 30 Ml Oral.Susp) 30 ml PO Q6H PRN PRN Reason: Heartburn/Nausea Benzonatate (Benzonatate 100 Mg Capsule) 200 mg PO TID PRN PRN Reason: Cough Last Admin: 06/15/21 08:51 Dose: 200 mg Documented by: Clonazepam (Clonazepam 0.5 Mg Tablet) 0.5 mg PO BID PRN PRN Reason: Anxiety Cyclobenzaprine HCl (Cyclobenzaprine Hcl 10 Mg Tablet) 20 mg PO BEDTIME [facility] Last Admin: 06/14/21 20:08 Dose: 20 mg Documented by: Insulin Glargine (Insulin Glargine,Hum.Rec.Anlog 100 Unit/Ml 10 Ml Vial) 60 unit SUBCUT BID [facility] Last Admin: 06/15/21 08:51 Dose: 60 unit Documented by: Levofloxacin (Levofloxacin 500 Mg Tablet) 500 mg PO Q24H [facility] Stop: 06/20/21 14:59 Last Admin: 06/15/21 16:23 Dose: Not Given Documented by: Magnesium Hydroxide (Milk Of Magnesia 30 Ml Oral.Susp) 30 ml PO DAILY PRN PRN Reason: Constipation Last Admin: 06/13/21 22:07 Dose: 30 ml Documented by: Metronidazole (Metronidazole 500 Mg Tablet) 500 mg PO BID [facility] Stop: 06/20/21 14:28 Last Admin: 06/15/21 08:51 Dose: 500 mg Documented by: Mirtazapine (Mirtazapine 7.5 Mg Tablet) 7.5 mg PO BEDTIME [facility] Last Admin: 06/14/21 20:14 Dose: Not Given Documented by: Olanzapine (Olanzapine 5 Mg Tablet) 5 mg PO BID PRN PRN Reason: agitation, paranoia Senna/Docusate Sodium (Sennosides/Docusate Sodium Tablet) 1 tab PO DAILY PRN PRN Reason: Constipation Last Admin: 06/14/21 20:12 Dose: 1 tab Documented by: Triamcinolone Acetonide (Triamcinolone Acet 0.1 % Oint 15 Gm Tube) 1 appl TOPICAL BID [facility] Last Admin: 06/15/21 08:55 Dose: Not Given Documented by: Allergies Allergies Allergy/AdvReac Type Severity Reaction Status Date / Time insulin aspart [From Novolog] Allergy Unknown HYPOGLYCMEI Verified 06/08/21 23:08 A Novolog Allergy Unknown Itchy Eyes Uncoded 01/26/21 13:01 Assessment & Plan Assessment & Plan (1) Exposure to gonorrhea: Status: Acute Code(s): Z20.2 - Contact with and (suspected) exposure to infections with a predominantly sexual mode of transmission (2) Schizoaffective disorder, depressive type: Status: Chronic Code(s): F25.1 - Schizoaffective disorder, depressive type Assessment and Plan: Pt reports Lexapro SE and asks to discontinue. Continue Remeron 7.5 mg HS She continues to refuse any atypical antipsychotic or mood stabilizer and has clear ideas on what treatments are appropriate for her at this time. Education provided which she accepted. OCEANOGRAPHY TEACHER consultation appreciated. 06/15/21: Discontinue Lorazepam Klonopin 0.5 mg bid prn Refuses follow up for elevated A1C, refuses Vit D supplement Encouraged to continue with Levaquin course if possible Discharge planned for 06/18/21. Assessment and Plan: Patient is adamantly declining vaginal exam. Explained to the patient the sensitivity of gonorrhea and chlamydia with a urine test is less than if collected from the cervix and BV panel is self collected with vaginal swept might be falsely negative the patient verbalized understanding and still declines. Will send urine for GC and chlamydia, gave the patient is vaginal swab for BV panel to collected from the vaginal wall. Will treat for gonorrhea/chlamydia/Trichomonas, with ceftriaxone 500 mg IM for gonorrhea azithromycin 1 g p.o. as an alternative to doxycycline since the patient develops nausea and vomiting from doxycycline, and Flagyl 500 mg p.o. b.i.d. for 7 days or Trichomonas for STDs hepatitis B surface antigen, HIV, hepatitis-C antibody, RPR and schedule patient for a test of cure in 2 weeks in the office and in 3 months. All questions answered, the patient verbalized understanding Will discontinue Atarax since it interacts with Levaquin Greater than 50% of the session was spent on counseling and/or coordination of care Patient educated on: medication risk/benefits and therapeutic strategies Informed Consent: understands and further education needed Reason for contiued inpatient stay Substantial Risk for: inability to function, rapid decompensation and med/psych decompensation
[2021-06-15] MEDS: clonazePAM 0.5 MG TABLET PO (20:22)
[2021-06-15] MEDS: Cyclobenzaprine HCl 10 MG TABLET 20 MG PO (20:22)
[2021-06-15] MEDS: Acetaminophen 325 MG TABLET 650 MG PO (20:23)
[2021-06-15] MEDS: Sennosides/Docusate Sodium TABLET 1 TAB PO (20:23)
[2021-06-15 20:37] LABS: Glucose, Whole Blood 235 mg/dL (60-115)
[2021-06-16 06:00] VITALS: BP 133/63; PULSE 78; RESP 18; TEMP 36.1; O2SAT 97
[2021-06-16 06:42] LABS: Glucose, Whole Blood 100 mg/dL (60-115)
[2021-06-16] MEDS: metroNIDAZOLE 500 MG TABLET PO ×2 (08:40→20:38)
[2021-06-16] MEDS: Insulin Glargine,Hum.rec.anlog 100 UNIT/ML 10 ML VIAL 60 UNIT SUBCUT ×2 (08:40→20:45)
[2021-06-16] MEDS: Benzonatate 100 MG CAPSULE 200 MG PO (08:40)
[2021-06-16] MEDS: Acetaminophen 325 MG TABLET 650 MG PO (11:17)
[2021-06-16] MEDS: clonazePAM 0.5 MG TABLET PO ×2 (11:17→20:40)
--- NOTE | 2021-06-16 13:34 | P.PNPSI_ITS ---
Subjective Subjective Date of Service: 06/16/21 Reason For Visit: depression Subjective Notes: Conditional Voluntary Interim History: Planning for discharge 06/18. Resistant regarding psychotropic use. Has not used Remeron, asks to decrease to 3.75 HS. Will use Klonopin and will use Cyclobenzaprine. Ambivalent about antibiotics. Continues to refuse mood stabilizers/atypicals as well. Review of Systems Acute medical concerns: No Medical Review of Systems: unchanged Review of Systems Reports behavioral changes Psychiatric: Reports abnormal sleep pattern, Reports anxiety, Reports behavioral changes and Reports irritability Mental Status Exam Mental Status Exam Patient Appearance: Appropriate Patient Orientation: Person, Place, Time and Situation Level of Consciousness: Appropriate and Alert Patient Behavior: Appropriate, Talkative, Cooperative, Anxious, Distractible and Good Eye Contact Mood Description: Anxious and Apprehensive Affect Description: Constricted Patient Cognition Impaired: No Ability to Follow Directions: Good Speech Pattern: Spontaneous Speech Memory Description: Intact Hallucinations: None Thought Process: Rumination and Goal Oriented Thought Content: positive for [place], positive for Circumstantial and positive for Goal Oriented Depressive Symptoms: Increased Anxiety, Thoughts of /Suicide (denies) and Low Self Esteem Judgement: Fair Diagnostics Vital Signs (24Hr): Vital Signs - 24 hr 06/15/21 18:00 06/16/21 06:00 Temperature 98.4 F 96.9 F Pulse Rate 88 78 Respiratory Rate 18 18 Blood Pressure 140/68 H 133/63 Pulse Oximetry 99 97 Body Mass Index 40.6 Labs Results: 06/08/21 21:32 06/08/21 21:32 Labs: Laboratory Results - last 48 hr 06/15/21 06/16/21 20:29 06:37 POC Glucose 235 H 100 Imaging Radiology Impressions: ITS Impressions Chest X-Ray 06/08/21 19:50 IMPRESSION: No acute cardiopulmonary findings. Medications Medications Current Medications Acetaminophen (Acetaminophen 325 Mg Tablet) 650 mg PO Q6H PRN PRN Reason: Headache/Pain Mild Scale (1-3) Last Admin: 06/16/21 11:17 Dose: 650 mg Documented by: Al Hydroxide/Mg Hydroxide (Magnesium Hydrox/Alum Hydrox 30 Ml Oral.Susp) 30 ml PO Q6H PRN PRN Reason: Heartburn/Nausea Benzonatate (Benzonatate 100 Mg Capsule) 200 mg PO TID PRN PRN Reason: Cough Last Admin: 06/16/21 08:40 Dose: 200 mg Documented by: Clonazepam (Clonazepam 0.5 Mg Tablet) 0.5 mg PO BID PRN PRN Reason: Anxiety Last Admin: 06/16/21 11:17 Dose: 0.5 mg Documented by: Cyclobenzaprine HCl (Cyclobenzaprine Hcl 10 Mg Tablet) 20 mg PO BEDTIME [facility] Last Admin: 06/15/21 20:22 Dose: 20 mg Documented by: Insulin Glargine (Insulin Glargine,Hum.Rec.Anlog 100 Unit/Ml 10 Ml Vial) 60 unit SUBCUT BID [facility] Last Admin: 06/16/21 08:40 Dose: 60 unit Documented by: Levofloxacin (Levofloxacin 500 Mg Tablet) 500 mg PO Q24H [facility] Stop: 06/20/21 14:59 Last Admin: 06/15/21 16:23 Dose: Not Given Documented by: Magnesium Hydroxide (Milk Of Magnesia 30 Ml Oral.Susp) 30 ml PO DAILY PRN PRN Reason: Constipation Last Admin: 06/13/21 22:07 Dose: 30 ml Documented by: Metronidazole (Metronidazole 500 Mg Tablet) 500 mg PO BID [facility] Stop: 06/20/21 14:28 Last Admin: 06/16/21 08:40 Dose: 500 mg Documented by: Mirtazapine (Mirtazapine 7.5 Mg Tablet) 7.5 mg PO BEDTIME [facility] Last Admin: 06/15/21 22:06 Dose: Not Given Documented by: Olanzapine (Olanzapine 5 Mg Tablet) 5 mg PO BID PRN PRN Reason: agitation, paranoia Senna/Docusate Sodium (Sennosides/Docusate Sodium Tablet) 1 tab PO DAILY PRN PRN Reason: Constipation Last Admin: 06/15/21 20:23 Dose: 1 tab Documented by: Triamcinolone Acetonide (Triamcinolone Acet 0.1 % Oint 15 Gm Tube) 1 appl TOPICAL BID [facility] Last Admin: 06/16/21 09:23 Dose: Not Given Documented by: Allergies Allergies Allergy/AdvReac Type Severity Reaction Status Date / Time insulin aspart [From Novolog] Allergy Unknown HYPOGLYCMEI Verified 06/08/21 23:08 A Novolog Allergy Unknown Itchy Eyes Uncoded 01/26/21 13:01 Assessment & Plan Assessment & Plan (1) Exposure to gonorrhea: Status: Acute Code(s): Z20.2 - Contact with and (suspected) exposure to infections with a predominantly sexual mode of transmission (2) Schizoaffective disorder, depressive type: Status: Chronic Code(s): F25.1 - Schizoaffective disorder, depressive type Assessment and Plan: Pt reports Lexapro SE and asks to discontinue. Continue Remeron 7.5 mg HS She continues to refuse any atypical antipsychotic or mood stabilizer and has clear ideas on what treatments are appropriate for her at this time. Education provided which she accepted. ENGINEERING PROJECT MANAGER consultation appreciated. 06/15/21: Discontinue Lorazepam Klonopin 0.5 mg bid prn Refuses follow up for elevated A1C, refuses Vit D supplement Encouraged to continue with Levaquin course if possible Discharge planned for 06/18/21. 06/16/21: Resistant to psychotropics except Klonopin prn. Denies perceptual alterations. Irritable she reports due to pain/muscle spasm. Decrease Mirtazapine to 3.75 mg HS Cyclobenzaprine 10 mg daily prn pain/spasm of muscle Discharge planned for 06/18. Pt planning to go to [place]. Assessment and Plan: Patient is adamantly declining vaginal exam. Explained to the patient the sensitivity of gonorrhea and chlamydia with a urine test is less than if collected from the cervix and BV panel is self collected with vaginal swept might be falsely negative the patient verbalized understanding and still declines. Will send urine for GC and chlamydia, gave the patient is vaginal swab for BV panel to collected from the vaginal wall. Will treat for gonorrhea/chlamydia/Trichomonas, with ceftriaxone 500 mg IM for gonorrhea azithromycin 1 g p.o. as an alternative to doxycycline since the patient develops nausea and vomiting from doxycycline, and Flagyl 500 mg p.o. b.i.d. for 7 days or Trichomonas for STDs hepatitis B surface antigen, HIV, hepatitis-C antibody, RPR and schedule patient for a test of cure in 2 weeks in the office and in 3 months. All questions answered, the patient verbalized understanding Will discontinue Atarax since it interacts with Levaquin Greater than 50% of the session was spent on counseling and/or coordination of care Patient educated on: medication risk/benefits and therapeutic strategies Informed Consent: understands and further education needed Reason for contiued inpatient stay Substantial Risk for: inability to function and rapid decompensation
[2021-06-16 14:33] LABS: BV Int Neg Control Negative (Negative); BV Int Pos Control Positive (Positive)
[2021-06-16 18:00] VITALS: BP 120/74; PULSE 82
[2021-06-16] MEDS: Cyclobenzaprine HCl 10 MG TABLET 20 MG PO (20:38)
[2021-06-16] MEDS: Mirtazapine 7.5 MG TABLET 3.75 MG PO (20:39)
[2021-06-16] MEDS: Milk of Magnesia 30 ML ORAL.SUSP PO (20:52)
[2021-06-16 21:09] LABS: Glucose, Whole Blood 186 mg/dL (60-115)
[2021-06-17 06:00] VITALS: BP 105/55; PULSE 78; RESP 20; TEMP 36.7; O2SAT 98
[2021-06-17] MEDS: metroNIDAZOLE 500 MG TABLET PO ×2 (08:28→20:18)
[2021-06-17 08:48] LABS: Glucose, Whole Blood 88 mg/dL (60-115)
[2021-06-17] MEDS: Insulin Glargine,Hum.rec.anlog 100 UNIT/ML 10 ML VIAL 60 UNIT SUBCUT ×2 (08:51→20:20)
[2021-06-17] MEDS: levoFLOXacin 500 MG TABLET PO (14:51)
[2021-06-17 20:10] VITALS: BP 155/73; PULSE 93; TEMP 36
[2021-06-17] MEDS: Cyclobenzaprine HCl 10 MG TABLET 20 MG PO (20:18)
[2021-06-17] MEDS: Benzonatate 100 MG CAPSULE 200 MG PO (20:18)
[2021-06-17] MEDS: Acetaminophen 325 MG TABLET 650 MG PO (20:19)
[2021-06-17] MEDS: clonazePAM 0.5 MG TABLET PO (20:19)
[2021-06-17] MEDS: Sennosides/Docusate Sodium TABLET 1 TAB PO (20:23)
--- NOTE | 2021-06-17 20:57 | HO.PSYCHPN ---
Subjective Subjective Date of Service: 06/18/21 Reason For Visit: depression Subjective Notes: Conditional Voluntary Interim History: Aminah reports she is prepared for discharge. She is planning on travel to [place] to explore housing options. She has declined specific referrals and requests hard copy prescriptions. She denies symptoms and reports no current concerns. Medication Compliance: Yes Review of Systems Medical Review of Systems: unchanged Review of Systems Psychiatric: Reports no additional psychiatric complaints Mental Status Exam Mental Status Exam Patient Appearance: Appropriate Patient Orientation: Person, Place, Time and Situation Level of Consciousness: Appropriate and Alert Patient Behavior: Appropriate, Talkative, Cooperative, Anxious, Distractible and Good Eye Contact Mood Description: Anxious and Apprehensive Affect Description: Constricted Patient Cognition Impaired: No Ability to Follow Directions: Good Speech Pattern: Spontaneous Speech Memory Description: Intact Hallucinations: None Thought Process: Rumination and Goal Oriented Thought Content: positive for [place], positive for Circumstantial and positive for Goal Oriented Depressive Symptoms: Increased Anxiety, Thoughts of /Suicide (denies) and Low Self Esteem Judgement: Fair Diagnostics Vital Signs (24Hr): Vital Signs - 24 hr 06/17/21 06:00 Temperature 98.0 F Pulse Rate 78 Respiratory Rate 20 Blood Pressure 105/55 L Pulse Oximetry 98 Body Mass Index 40.6 Labs Results: 06/08/21 21:32 06/08/21 21:32 Labs: Laboratory Results - last 48 hr 06/13/21 06/16/21 06/16/21 15:02 06:37 20:36 POC Glucose 100 186 H Karen species DNA Negative Gardnerella DNA Probe Negative Trichomonas DNA Probe Negative 06/17/21 08:43 POC Glucose 88 Karen species DNA Gardnerella DNA Probe Trichomonas DNA Probe Imaging Radiology Impressions: ITS Impressions Chest X-Ray 06/08/21 19:50 IMPRESSION: No acute cardiopulmonary findings. Medications Medications Current Medications Acetaminophen (Acetaminophen 325 Mg Tablet) 650 mg PO Q6H PRN PRN Reason: Headache/Pain Mild Scale (1-3) Last Admin: 06/17/21 20:19 Dose: 650 mg Documented by: Al Hydroxide/Mg Hydroxide (Magnesium Hydrox/Alum Hydrox 30 Ml Oral.Susp) 30 ml PO Q6H PRN PRN Reason: Heartburn/Nausea Benzonatate (Benzonatate 100 Mg Capsule) 200 mg PO TID PRN PRN Reason: Cough Last Admin: 06/17/21 20:18 Dose: 200 mg Documented by: Clonazepam (Clonazepam 0.5 Mg Tablet) 0.5 mg PO BID PRN PRN Reason: Anxiety Last Admin: 06/17/21 20:19 Dose: 0.5 mg Documented by: Cyclobenzaprine HCl (Cyclobenzaprine Hcl 10 Mg Tablet) 20 mg PO BEDTIME [facility] Last Admin: 06/17/21 20:18 Dose: 20 mg Documented by: Cyclobenzaprine HCl (Cyclobenzaprine Hcl 10 Mg Tablet) 10 mg PO DAILY PRN PRN Reason: pain, spasm of muscles Insulin Glargine (Insulin Glargine,Hum.Rec.Anlog 100 Unit/Ml 10 Ml Vial) 60 unit SUBCUT BID [facility] Last Admin: 06/17/21 20:20 Dose: 60 unit Documented by: Levofloxacin (Levofloxacin 500 Mg Tablet) 500 mg PO Q24H [facility] Stop: 06/20/21 14:59 Last Admin: 06/17/21 14:51 Dose: 500 mg Documented by: Magnesium Hydroxide (Milk Of Magnesia 30 Ml Oral.Susp) 30 ml PO DAILY PRN PRN Reason: Constipation Last Admin: 06/16/21 20:52 Dose: 30 ml Documented by: Metronidazole (Metronidazole 500 Mg Tablet) 500 mg PO BID [facility] Stop: 06/20/21 14:28 Last Admin: 06/17/21 20:18 Dose: 500 mg Documented by: Mirtazapine (Mirtazapine 7.5 Mg Tablet) 3.75 mg PO BEDTIME [facility] Last Admin: 06/16/21 20:39 Dose: 3.75 mg Documented by: Olanzapine (Olanzapine 5 Mg Tablet) 5 mg PO BID PRN PRN Reason: agitation, paranoia Senna/Docusate Sodium (Sennosides/Docusate Sodium Tablet) 1 tab PO DAILY PRN PRN Reason: Constipation Last Admin: 06/17/21 20:23 Dose: 1 tab Documented by: Triamcinolone Acetonide (Triamcinolone Acet 0.1 % Oint 15 Gm Tube) 1 appl TOPICAL BID [facility] Last Admin: 06/17/21 08:59 Dose: Not Given Documented by: Allergies Allergies Allergy/AdvReac Type Severity Reaction Status Date / Time insulin aspart [From Novolog] Allergy Unknown HYPOGLYCMEI Verified 06/08/21 23:08 A Novolog Allergy Unknown Itchy Eyes Uncoded 01/26/21 13:01 Assessment & Plan Assessment & Plan (1) Exposure to gonorrhea: Status: Acute Code(s): Z20.2 - Contact with and (suspected) exposure to infections with a predominantly sexual mode of transmission (2) Schizoaffective disorder, depressive type: Status: Chronic Code(s): F25.1 - Schizoaffective disorder, depressive type Assessment and Plan: Pt reports Lexapro SE and asks to discontinue. Continue Remeron 7.5 mg HS She continues to refuse any atypical antipsychotic or mood stabilizer and has clear ideas on what treatments are appropriate for her at this time. Education provided which she accepted. SENIOR CORPORATE ACCOUNTANT consultation appreciated. 06/15/21: Discontinue Lorazepam Klonopin 0.5 mg bid prn Refuses follow up for elevated A1C, refuses Vit D supplement Encouraged to continue with Levaquin course if possible Discharge planned for 06/18/21. 06/16/21: Resistant to psychotropics except Klonopin prn. Denies perceptual alterations. Irritable she reports due to pain/muscle spasm. Decrease Mirtazapine to 3.75 mg HS Cyclobenzaprine 10 mg daily prn pain/spasm of muscle Discharge planned for 06/18. Pt planning to go to [place]. 06/17/21: Discharge planned for 06/18/21. Assessment and Plan: Patient is adamantly declining vaginal exam. Explained to the patient the sensitivity of gonorrhea and chlamydia with a urine test is less than if collected from the cervix and BV panel is self collected with vaginal swept might be falsely negative the patient verbalized understanding and still declines. Will send urine for GC and chlamydia, gave the patient is vaginal swab for BV panel to collected from the vaginal wall. Will treat for gonorrhea/chlamydia/Trichomonas, with ceftriaxone 500 mg IM for gonorrhea azithromycin 1 g p.o. as an alternative to doxycycline since the patient develops nausea and vomiting from doxycycline, and Flagyl 500 mg p.o. b.i.d. for 7 days or Trichomonas for STDs hepatitis B surface antigen, HIV, hepatitis-C antibody, RPR and schedule patient for a test of cure in 2 weeks in the office and in 3 months. All questions answered, the patient verbalized understanding Will discontinue Atarax since it interacts with Levaquin Greater than 50% of the session was spent on counseling and/or coordination of care Patient educated on: diagnosis, medication risk/benefits and therapeutic strategies Informed Consent: understands Reason for contiued inpatient stay Substantial Risk for: stable for discharge
[2021-06-17 21:09] LABS: Glucose, Whole Blood 92 mg/dL (60-115)
[2021-06-18 08:50] VITALS: BP 152/67; PULSE 100; RESP 18; TEMP 36.2; O2SAT 96
[2021-06-18 08:55] LABS: Glucose, Whole Blood 78 mg/dL (60-115)
[2021-06-18] MEDS: Insulin Glargine,Hum.rec.anlog 100 UNIT/ML 10 ML VIAL 60 UNIT SUBCUT (08:56)
[2021-06-18] MEDS: metroNIDAZOLE 500 MG TABLET PO (08:56)
--- NOTE | 2021-06-30 17:33 | P.DS_ITS ---
DS: Providers Provider Date of Service: 06/18/21 Date of admission: 06/10/21 01:02 Date of discharge: 06/18/21 Primary care physician: Unknown Physician Admitting clinician: Shira Nunn Attending physician on admission: Abner Bui Consults: 06/13/21 10:27 Consult to Obstetrics / Gynecology Routine Consulting Provider: Joycelyn Guerra Reason for consultation: Vaginal discharge, irritation, pt concerned about STD Has provider been notified: Yes Attending physician on discharge: Abner Bui Discharging clinician: Shira Nunn DS: Diagnosis Discharge Diagnosis (1) Schizoaffective disorder, depressive type: Status: Chronic (2) Exposure to gonorrhea: Status: Deleted DS: Medications Discharge Medications Home Medications: Home Medications Medication Instructions Recorded Confirmed insulin glargine 100 unit/mL (3 60 unit SUBCUT BID 01/26/21 06/09/21 mL) subcutaneous pen (Lantus Solostar U-100 Insulin) rosuvastatin 20 mg tablet 1 tab PO BEDTIME 01/26/21 06/09/21 Previous Rx's Medication Instructions Recorded clonazepam 0.5 mg tablet 0.5 mg PO BID PRN #0 tab 06/17/21 clonazepam 0.5 mg tablet (Klonopin) 0.5 mg PO BID PRN #14 tab 06/17/21 cyclobenzaprine 10 mg tablet 10 mg PO BID PRN #14 tab 06/17/21 levofloxacin 500 mg tablet 500 mg PO Q24H #2 tab 06/17/21 metronidazole 500 mg tablet 500 mg PO BID #4 tab 06/17/21 mirtazapine 7.5 mg tablet 3.75 mg PO BEDTIME #15 tab 06/17/21 Mental Status Exam Mental Status Exam Patient Appearance: Appropriate Patient Orientation: Person, Place, Time and Situation Level of Consciousness: Appropriate and Alert Patient Behavior: Appropriate, Talkative, Cooperative, Anxious, Distractible and Good Eye Contact Mood Description: Anxious and Apprehensive Affect Description: Constricted Patient Cognition Impaired: No Ability to Follow Directions: Good Speech Pattern: Spontaneous Speech Memory Description: Intact Hallucinations: None Thought Process: Rumination and Goal Oriented Thought Content: positive for [place], positive for Circumstantial and positive for Goal Oriented Depressive Symptoms: Increased Anxiety, Thoughts of /Suicide (denies) and Low Self Esteem Judgement: Fair Data Imaging Diagnostic Imaging Impressions Chest X-Ray 06/08/21 19:50 IMPRESSION: No acute cardiopulmonary findings. DS: Summary Hospital Course Hospital Course: Pt signed in on conditional voluntary status and did sign a three day notice. She completed medication trials, focusing on smallest effective dosing as she reported a history of feeling overmedicated in the past. She worked with nursing and social service teams on coping skills. She discussed not wanting to remain in [place] and chose to begin a new start in another place. She chose [place], declining referrals upon discharge, stating she would be in contact when she settled and if she had difficulty finding resources which she needed. Time spent discussing smoking cessation with patient: 3 to 10 minutes Status at Discharge Cognitive/behavioral status at discharge: non-psychotic, non suicidal Functional status at discharge: independent ambulation Overall status at discharge: patient is progressing back to baseline Time Spent with Patient Time attestation: Total time spent providing and/or coordinating discharge services: 35 Time spent: Greater than 30 minutes Discharge Plan Discharge Anticipated Discharge Date/Time: 06/18/21 23:00 Patient Disposition: Xfer Other Discharge Diagnosis: Schizoaffective Disorder, Depressed Referrals: Physician,Unknown J [Primary Care Provider] - 1 Week Discharge Medications: New clonazepam 0.5 mg Tablet 0.5 mg PO BID PRN (Reason: Anxiety) Qty: 0 RF: 4 metronidazole 500 mg Tablet 500 mg PO BID Qty: 4 RF: 0 levofloxacin 500 mg Tablet 500 mg PO Q24H Qty: 2 RF: 0 cyclobenzaprine 10 mg tablet 10 mg PO BID PRN (Reason: pain) Qty: 14 RF: 4 mirtazapine 7.5 mg tablet 3.75 mg PO BEDTIME Qty: 15 RF: 0 clonazepam [Klonopin] 0.5 mg tablet 0.5 mg PO BID PRN (Reason: anxiety) Qty: 14 RF: 4 Continued rosuvastatin 20 mg tablet 1 tab PO BEDTIME RF: 0 Lantus Solostar U-100 Insulin 100 unit/mL (3 mL) insulin pen 60 unit subcut BID RF: 0 Discontinued clonazepam 0.5 mg Tablet 0.5 mg PO BEDTIME PRN (Reason: Sleep) RF: 0 Discharge Orders: Discharge Order (Routine); Ordered 06/18/21 Ordered By: Quiana Rehman Diet: diabetic diet Activity on Discharge: As tolerated Stand Alone Forms: Patient Portal Discharge page, Community Support Care Plan Goals: Mood and thought stability Health Concerns: Schizoaffective Disoder Diabetes Plan of Treatment: Take medications as directed Attend follow up appointments Assessment: Pt brighter, non labile. Less AH, No SI/HI. Patient Instructions: Schizoaffective Disorder (ED) Discharge Date/Time: 06/18/21 10:24
== END 2021-06-18 10:24 | disposition other institution (70) | DRG 885 ==
LOC: HO.ED 06-10 01:01 → HO.PM5 06-10 01:08
PROVIDERS: Nurse Practitioner Family; Obstetrics & Gynecology; Admitting Provider Psychiatry & Neurology Psychiatry; Emergency Provider Internal Medicine; Visit Provider Clinical Nurse Specialist Psychiatric/Mental Health, Adult
DX: F25.1 Schizoaffective disorder, depressive type (principal); Z23 Encounter for immunization; Z20.822 Contact with and (suspected) exposure to COVID-19; Z20.2 Contact with and (suspected) exposure to infections with a predominantly sexual mode of transmission; Z79.4 Long term (current) use of insulin; Z79.899 Other long term (current) drug therapy
CPT/HCPCS: 0241U; 36415; 71045; 80053; 80061; 80307; 82077; 82306; 82607; 82746; 82947; 83036; 84443; 85025; 87480; 87491; 87510; 87591; 87660; 90686; 93005; 94640; 96374; 99285; J0696

== ENCOUNTER 2024-11-06 08:15 | Emergency (ER) | payer MEDICARE, MEDICAID, SELFPAY ==
--- NOTE | ~2024-11-06 | XR_ITS ---
CLINICAL HISTORY: chest pain 2 view chest x-ray. Comparison: CR - XR CHEST 1V - 06/08/21 20:03 EDT Findings: The lungs are adequately expanded. No focal consolidation. No effusion or pneumothorax. Cardiac and mediastinal contours are stable. No acute osseous abnormality Impression: No focal consolidation. No overt edema. This document has been electronically signed by: Naif Fitch MD on 11/06/2024 13:14:36
[2024-11-06 08:19] VITALS: BP 160/90; PULSE 80; O2SAT 100
--- NOTE | 2024-11-06 08:23 | ECG_ITS ---
Test Reason : CP Blood Pressure : */* mmHG Vent. Rate : 78 BPM Atrial Rate : 78 BPM P-R Int : 136 ms QRS Dur : 80 ms QT Int : 380 ms P-R-T Axes : * -19 142 degrees QTcB Int : 433 ms Suspect limb lead reversal, interpretation assumes no reversal Normal sinus rhythm Possible Lateral infarct , age undetermined Abnormal ECG When compared with ECG of 11-Jun-2021 14:10, Borderline criteria for Lateral infarct are now Present Referred By: Generic ED Physician Electronically Signed By: Dixon Ocampo
[2024-11-06 08:42] VITALS: BP 129/58; PULSE 76; RESP 19; TEMP 36.4; O2SAT 100; BMI 39.3
--- OUTSIDE RECORDS SUMMARY | 2024-11-06 09:18 | XMS_ITS | Patient Health Record ---
Author Organization [facility] Janie es Billing Info Address [address] [place] [address] Support Name Relationship Address Phone FANNY ESPAÑA Guarantor Unknown [phone] Reason For Referral No Information Plan Of Treatment No Information Insurance Providers Payer Name Payer Address Payer Phone Subscriber Number Group Number Insured Name Patient Relationship to Insured Coverage Start Date Coverage End Date [place] [address] [place], [place] [id number] FANNY ESPAÑA Self - patient is the insured 3 3 MEDICAID [place] [address] ATTN ORIGINAL PAPER CLAIM SUBMISSION OSVALDO ZAMUDIO [id number] FANNY ESPAÑA Self - patient is the insured 3 3
--- OUTSIDE RECORDS SUMMARY | 2024-11-06 09:18 | XMS_ITS ---
Author Name CRISP Organization Unknown Results Test Name/Text Value Interpretation Date Range Source 84832-2 CHLAMYDIA TRACHOMATIS RRNA:PRTHR:PT:URINE:O RD:PROBE.AMP.TAR Normal [id number] - [facility] 34072-6 NEISSERIA GONORRHOEAE RRNA:PRTHR:PT:URINE:O RD:PROBE.AMP.TAR Normal [id number] - [facility] POC Glucose 73mg/dL Normal [id number] 65 - 99 [facility] Globulin Ser Calc-mCnc 3.1g/dL Normal 834891707103 1.5 - 3.9 [facility] ALT SerPl-cCnc 19U/L Normal 368317991215 10 - 50 HH CCT AST SerPl-cCnc 23U/L Normal [id number] 10 - 50 HH CCT GFR/BSA.pred SerPlBld ULL-HZB-OhVQav 90 Normal 926770579512 59 - [facility] Albumin SerPl-mCnc 3.7g/dL Normal [id number] 3.4 - 4. 8 [facility] Albumin/Glob SerPl 1.2Ratio Normal 039966403020 1 - 3 [facility] Creat SerPl-mCnc 0.7mg/dL Normal [id number] 0.4 - 1.1 [facility] Bilirub SerPl-mCnc 0.2mg/dL Normal 079121530235 0.2 - 1 [facility] Anion Gap Bld-sCnc 8 Normal [id number] 7 - 17 [facility] Sodium SerPl-sCnc 138mmol/L Normal [id number] 136 - 145 [facility] Potassium SerPl-sCnc 3.5mmol/L Normal [id number] 3.4 - 5.3 [facility] Chloride SerPl-sCnc 103mmol/L Normal [id number] 98 - 10 7 [facility] Glucose SerPl-mCnc 94mg/dL Normal [id number] 65 - 99 [facility] Prot SerPl-mCnc 6.8g/dL Normal [id number] 6.3 - 8.3 H [facility] BUN/Creat SerPl 16Ratio Normal [id number] 10 - 25 H [facility] Calcium SerPl-mCnc 9.2mg/dL Normal [id number] 8.7 - 10.5 [facility] CO2 SerPl-sCnc 27mmol/L Normal [id number] 22 - 33 HH CCT BUN SerPl-mCnc 11mg/dL Normal [id number] 8 - 21 HH CCT ALP SerPl-cCnc 69U/L Normal [id number] 32 - 122 HH CCT Troponin T SerPl-mCnc 15ng/L Above high normal [id number] 07 - 15 [facility] Delta 1 Normal [id number] - 3 [facility] Troponin T SerPl-mCnc 13ng/L Normal [id number] - 15 [facility] Delta 1 Normal [id number] - 3 [facility] Troponin T SerPl-mCnc 14ng/L Normal [id number] - 15 [facility] Delta Normal [id number] - 3 [facility] Globulin Ser Calc-mCnc 3g/dL Normal [id number] 1.5 - 3.9 [facility] ALT SerPl-cCnc 20U/L Normal [id number] 10 - 50 HH CCT AST SerPl-cCnc 24U/L Normal [id number] 10 - 50 HH CCT GFR/BSA.pred SerPlBld SSV-RLP-XtFOdi 84 Normal [id number] 59 - [facility] Albumin SerPl-mCnc 3.7g/dL Normal [id number] 3.4 - 4. 8 [facility] Albumin/Glob SerPl 1.2Ratio Normal [id number] 1 - 3 [facility] Creat SerPl-mCnc 0.8mg/dL Normal [id number] 0.4 - 1.1 [facility] Bilirub SerPl-mCnc 0.2mg/dL Normal [id number] 0.2 - 1 [facility] Anion Gap Bld-sCnc 9 Normal [id number] 7 - 17 [facility] Sodium SerPl-sCnc 137mmol/L Normal [id number] 136 - 145 [facility] Potassium SerPl-sCnc 3.6mmol/L Normal [id number] 3.4 - 5.3 [facility] Chloride SerPl-sCnc 101mmol/L Normal [id number] 98 - 10 7 [facility] Glucose SerPl-mCnc 92mg/dL Normal [id number] 65 - 99 [facility] Prot SerPl-mCnc 6.7g/dL Normal [id number] 6.3 - 8.3 H [facility] BUN/Creat SerPl 15Ratio Normal [id number] 10 - 25 H [facility] Calcium SerPl-mCnc 9.3mg/dL Normal [id number] 8.7 - 10.5 [facility] CO2 SerPl-sCnc 27mmol/L Normal [id number] 22 - 33 HH CCT BUN SerPl-mCnc 12mg/dL Normal [id number] 8 - 21 HH CCT ALP SerPl-cCnc 71U/L Normal [id number] 32 - 122 HH CCT Imm Granulocytes/leuk NFr Bld Auto 0.2% Normal [id number] [facility] Lymphocytes/leuk NFr Bld Auto 21% Normal [id number] [facility] PMV Bld Auto 10.1fL Normal [id number] 7.5 - 12.5 [facility] Monocytes num Bld Auto 0.48Thou/uL Normal [id number] 0.2 - 1.5 [facility] Hct VFr Bld Auto 33.3% Below low normal [id number] 35 - 47 [facility] Neutrophils num Bld Auto 3.82Thou/uL Normal [id number] 2 - 7.5 [facility] Neutrophils/leuk NFr Bld Auto 66.5% Normal 153019972412 [facility] Basophils/leuk NFr Bld Auto 0.3% Normal [id number] [facility] Basophils num Bld Auto 0.02Thou/uL Normal [id number] 0 - 0.2 [facility] Monocytes/leuk NFr Bld Auto 8.3% Normal [id number] [facility] Eosinophil num Bld Auto 0.21Thou/uL Normal [id number] 0 - 0.7 [facility] MCH RBC Qn Auto 25.6pg Below low normal [id number] 27 - 31 [facility] Eosinophil/leuk NFr Bld Auto 3.7% Normal [id number] [facility] Imm Granulocytes num Bld Auto 0.01Thou/uL Normal [id number] 0 - 0.1 [facility] RDW RBC Auto-Rto 15% Above high normal [id number] 11.5 - 14.5 [facility] Platelet num Bld Auto 308Thou/uL Normal [id number] 150 - 450 [facility] MCHC RBC Auto-mCnc 30.6g/dL Normal [id number] 30 - 36 [facility] MCV RBC Auto 84fL Normal [id number] 80 - 100 [facility] T WBC num Bld Auto 5.8Thou/uL Normal [id number] 4 - 11 [facility] RBC num Bld Auto 3.98Mil/uL Below low normal [id number] 4 - 5.4 [facility] Hgb Bld-mCnc 10.2g/dL Below low normal [id number] 11.7 - 15.7 [facility] Lymphocytes num Bld Auto 1.21Thou/uL Below low normal [id number] 1.5 - 4.5 [facility] Imm Granulocytes/leuk NFr Bld Auto 0.2% Normal [id number] [facility] Lymphocytes/leuk NFr Bld Auto 23.2% Normal 080124292799 [facility] PMV Bld Auto 10.6fL Normal [id number] 7.5 - 12.5 [facility] Monocytes num Bld Auto 0.53Thou/uL Normal [id number] 0.2 - 1.5 [facility] Hct VFr Bld Auto 33.9% Below low normal [id number] 35 - 47 [facility] Neutrophils num Bld Auto 3.83Thou/uL Normal [id number] 2 - 7.5 [facility] Neutrophils/leuk NFr Bld Auto 64.1% Normal 630103457125 [facility] Basophils/leuk NFr Bld Auto 0.3% Normal [id number] [facility] Basophils num Bld Auto 0.02Thou/uL Normal [id number] 0 - 0.2 [facility] Monocytes/leuk NFr Bld Auto 8.9% Normal [id number] [facility] Eosinophil num Bld Auto 0.2Thou/uL Normal [id number] 0 - 0.7 [facility] MCH RBC Qn Auto 25.1pg Below low normal 422075127796 27 - 31 [facility] Eosinophil/leuk NFr Bld Auto 3.3% Normal 650958728416 [facility] Imm Granulocytes num Bld Auto 0.01Thou/uL Normal [id number] 0 - 0.1 [facility] RDW RBC Auto-Rto 15% Above high normal [id number] 11.5 - 14.5 [facility] Platelet num Bld Auto 301Thou/uL Normal [id number] 150 - 450 [facility] MCHC RBC Auto-mCnc 29.5g/dL Below low normal 199680614200 3 0 - 36 [facility] MCV RBC Auto 85fL Normal [id number] 80 - 100 [facility] T WBC num Bld Auto 6Thou/uL Normal [id number] 4 - 11 [facility] RBC num Bld Auto 3.99Mil/uL Below low normal [id number] 4 - 5.4 [facility] Hgb Bld-mCnc 10g/dL Below low normal [id number] 11.7 - 15.7 [facility] Lymphocytes num Bld Auto 1.39Thou/uL Below low normal [id number] 1.5 - 4.5 [facility] HIGH SENS TROPONIN I 3 HR < 3 Normal [id number] 0 - 14 [facility] HIGH S TROPONIN I 3 HR DELTA TNP Normal [id number] [facility] EOSINOPHIL 4% Normal [id number] 0.7 - 6 [facility] EOSINOPHIL ABSOLUTE 0.23K/uL Normal [id number] 0.0 2 - 0.5 [facility] NEUTROPHIL 64% Normal [id number] 35 - 70 [facility] LYMPHOCYTE ABSOLUTE 1.42K/uL Normal [id number] 1 - 4.5 [facility] MONOCYTE ABSOLUTE 0.38K/uL Normal [id number] 0.2 - 1 [facility] LYMPHOCYTE 24.8% Normal [id number] 20 - 45 [facility] MONOCYTE 6.6% Normal [id number] 4 - 12.5 [facility] DIFFERENTIAL COMMENT AUTO DIFF Normal [id number] [facility] BASOPHIL ABSOLUTE 0.02K/uL Normal [id number] 0 - 0.1 [facility] BASOPHIL 0.3% Normal [id number] 0 - 2 [facility] HEMATOLOGY SMEAR REVIEW Smear Reviewed Normal [id number] [facility] HIGH SENS TROPONIN I BASELINE < 3 Normal [id number] 0 - 14 [facility] CHLORIDE 106mEq/L Normal [id number] 98 - 107 [facility] CALCULATED GFR 84ml/min Normal [id number] 60 - [facility] CARBON DIOXIDE 26mEq/L Normal [id number] 22 - 29 [facility] CREATININE 0.8mg/dl Normal [id number] 0.57 - 1.11 [facility] ANION GAP 9mEq/L Normal [id number] 9 - 18 [facility] SODIUM 141mEq/l Normal [id number] 136 - 145 [facility] GLUCOSE 132mg/dL Above high normal 896074725016 70 - 100 [facility] BLOOD UREA NITROGEN 9mg/dL Below low normal 7396610412 29 9.8 - 20.1 [facility] CALCIUM 9.4mg/dL Normal [id number] 8.4 - 10.2 [facility] POTASSIUM 4mEq/L Normal 781553420033 3.5 - 5.1 [facility] PHOSPHOROUS 3.9mg/dL Normal [id number] 2.3 - 4.7 [facility] MAGNESIUM 1.8mg/dL Normal [id number] 1.6 - 2.6 [facility] RED CELL DISTRIBUTION WIDTH 15.2% Above high normal [id number] 11.5 - 14.5 [facility] ABSOLUTE NEUTROPHIL COUNT 3.66K/uL Normal [id number] 1.5 - 7.8 [facility] PLATELET COUNT 249K/uL Normal [id number] 150 - 400 [facility] MEAN CORPUSCULAR HEMOGLOBIN 26.1pg Normal [id number] 26 - 32 [facility] MEAN CORPUSCULAR VOLUME 85.8fL Normal [id number] 80 - 99 [facility] MEAN CORPUSCULAR HGB CONC 30.4g/dL Below low normal [id number] 32 - 36 [facility] IMMATURE PLT FRACTION PERCENT 5.3% Normal [id number] 0.5 - 8.5 [facility] HEMOGLOBIN 10.3g/dL Below low normal [id number] 12 - 15 [facility] WHITE BLOOD COUNT 5.7K/uL Normal [id number] 4 - 11 [facility] HEMATOCRIT 33.9% Below low normal [id number] 36 - 46 [facility] RED BLOOD COUNT 3.95M/uL Below low normal [id number] 4 - 5.2 [facility] MEAN PLATELET VOLUME 11.1fL Normal [id number] 9. 2 - 12.7 [facility] NUCLEATED RED BLOOD CELL 0/100WBC Normal 195744778490 0 - 0 [facility] Syphilis EIA Normal [id number] - [facility] 2823-3 POTASSIUM:SCNC:PT:SER /PLAS:QN: 3.6mmol/L Normal [id number] 3.5 - 5.1 [facility] U WBC 1/HPF Normal [id number] 0 - 5 [facility] U Appearance Clear [facility] U Nitrite Normal - [facility] U Leuko Est Normal - [facility] U Glucose Normal - [facility] U Ketones Normal - [facility] U Spec Thayer 1.02 Normal 238808434279 1.005 - 1.035 [facility] U Color Normal [facility] U Protein Normal - [facility] U Hem Normal - [facility] U Urobilinogen - [facility] U Bilirubin Normal - [facility] U pH 5.5 Normal [id number] 5 - 8 [facility] Trichomonas Normal 859787371318 - [facility] Estimated GFR 100mL/min/1.7 3m2 Normal [id number] - [facility] eCrCl Total Body Weight 159 601317134580 [facility] POTASSIUM:SCNC:PT:SER /PLAS:QN: hemolyzed 3.5 - 5.1 [facility] 00429-1 ASPARTATE AMINOTRANSFERASE:CCNC :PT:SER/PLAS:QN:WITH P-5'-P hemolyzed 829323008255 - [facility] 6768-6 ALKALINE PHOSPHATASE:CCNC:PT:S ER/PLAS:QN: 64unit/L Normal [id number] 45 - 117 [facility] 2951-2 SODIUM:SCNC:PT:SER/PL :QN: 139mmol/L Normal [id number] 135 - 145 [facility] 3094-0 UREA NITROGEN:MCNC:PT:SER/ PLAS:QN: 12mg/dL Normal [id number] 7 - 20 [facility] 2345-7 GLUCOSE:MCNC:PT:SER/P LAS:QN: 131mg/dL Above high normal 585029686631 70 - 99 [facility] 77205-3 ALBUMIN:MCNC:PT:SER/P LAS:QN:BCP 3.9g/dL Normal 419335892595 3.4 - 5 [facility] 2160-0 CREATININE:MCNC:PT:SE R/PLAS:QN: 0.66mg/dL Normal 701429230871 0.5 - 1.3 [facility] 2885-2 PROTEIN:MCNC:PT:SER/P LAS:QN: 6.5g/dL Normal [id number] 6.4 - 8.2 [facility] 2028-9 CARBON DIOXIDE:SCNC:PT:SER/P LAS:QN: 28.5mmol/L Normal [id number] 21 - 32 [facility] 2075-0 CHLORIDE:SCNC:PT:SER/ PLAS:QN: 104mmol/L Normal [id number] 98 - 107 [facility] 1743-4 ALANINE AMINOTRANSFERASE:CCNC :PT:SER/PLAS:QN:WITH P-5'-P 20unit/L Normal [id number] 12 - 78 [facility] 1975-2 BILIRUBIN:MCNC:PT:SER /PLAS:QN: 0.4mg/dL Normal [id number] - [facility] 34821-0 ANION GAP:SCNC:PT:SER/PLAS: QN: 6mmol/L Below low normal 834327901074 7 - 16 [facility] 66561-3 CALCIUM:MCNC:PT:SER/P LAS:QN: 9.8mg/dL Normal 135576729551 8.5 - 10.1 [facility] hs Troponin I 3CD:308930529 3 Normal 231893281716 - [facility] 4544-3 HEMATOCRIT:VFR:PT:BLD :QN:AUTOMATED COUNT 31.7% Below low normal 811920675710 33 - 45 [facility] 787-2 ERYTHROCYTE MEAN CORPUSCULAR VOLUME:ENTVOL:PT:RBC: QN:AUTOMATED COUNT 83.2FL Normal 895643803815 80 - 98 [facility] 777-3 PLATELETS:NCNC:PT:BLD :QN:AUTOMATED COUNT 277K/MM3 Normal [id number] 150 - 450 [facility] 789-8 ERYTHROCYTES:NCNC:PT: BLD:QN:AUTOMATED COUNT 3.81M/MM3 Normal 318889218704 3.77 - 5.2 [facility] 788-0 ERYTHROCYTE DISTRIBUTION WIDTH:RATIO:PT:RBC:QN :AUTOMATED COUNT 14.8% Above high normal 709623996147 11.5 - 14.5 [facility] 718-7 HEMOGLOBIN:MCNC:PT:BL D:QN: 9.9G/DL Below low normal [id number] 11.7 - 15.5 [facility] 6690-2 LEUKOCYTES:NCNC:PT:BL D:QN:AUTOMATED COUNT 7.53K/MM3 Normal 538139739006 4 - 11 [facility] 50982-4 ERYTHROCYTES.NUCLEATE D/100 LEUKOCYTES:RATIO:PT:B LD:QN:AUTOMATED COUNT 0/100WBC Normal 983198586933 0 - 0.1 [facility] 786-4 ERYTHROCYTE MEAN CORPUSCULAR HEMOGLOBIN CONCENTRATION:MCNC:PT :RBC:QN:AUTOMATED COUNT 31.2G/DL Below low normal 680534229658 32 - 36 [facility] 785-6 ERYTHROCYTE MEAN CORPUSCULAR HEMOGLOBIN:ENTMASS:PT :RBC:QN:AUTOMATED COUNT 26PG Normal 150825820501 26 - 33 [facility] OPID GLU POC 30706 001126389855 [facility] GLU POC 138mg/dL Above high normal 776535225435 70 - 105 [facility] [place]gren Sed Rate 34mm/hour Above high normal 236401067787 0 - 30 [facility] GLOMERULAR FILTRATION RATE/1.73 SQ M.PREDICTED 91 Normal - [facility] C REACTIVE PROTEIN 1.2mg/dL Above high normal - [facility] GLUCOSE 251mg/dL Above high normal 70 - 99 [facility] CARBON DIOXIDE 28mmol/L Normal 21 - 30 [facility] CREATININE 0.75mg/dL Normal 798921544648 0.52 - 1.04 [facility] SODIUM 137mmol/L Normal 832555020221 136 - 145 [facility] UREA NITROGEN 13mg/dL Normal 7 - 17 [facility] CALCIUM 8.8mg/dL Normal 8.6 - 10.2 [facility] CHLORIDE 104mmol/L Normal [id number] 98 - 107 [facility] ANION GAP 6 Normal [id number] 4 - 16 [facility] POTASSIUM 4.2mmol/L Normal [id number] 3.5 - 5.1 [facility] Urine Mucus Normal 670752628782 [facility] Ur Squamous Epithelial Normal 284524524079 0 - 2 [facility] Urine RBC Normal 643187951918 0 - 2 [facility] Urine WBC Normal 859680727212 0 - 5 [facility] Ur NSE Normal 690022156101 0 - 2 [facility] Urine Bacteria Normal 672345666262 [facility] GLUCOSE 775130484876 - [facility] SPECIFIC GRAVITY 1.026 Normal 343439119374 1.002 - 1.04 [facility] APPEARANCE Normal 029625669046 [facility]_U MMC PH 5 Normal 688639433375 5 - 8 [facility] COLOR Normal 101287963810 [facility] KETONES Normal 831290197165 - [facility] NITRITE Normal 785812886431 - [facility] HEMOGLOBIN Normal [id number] - [facility] BILIRUBIN Normal 112206969203 - [facility] PROTEIN Normal 364626987323 - [facility] LEUKOCYTE ESTERASE Normal 062307896151 - [facility] UROBILINOGEN Normal 733821284415 - [facility] HEMOGLOBIN 10.6g/dL Below low normal 976474438351 11.9 - 15.7 [facility] MPV 10.5fL Normal [id number] 9.4 - 12.4 [facility] RBC 4.25M/mcL Normal 460900632487 3.9 - 5.1 [facility] LEUKOCYTES 6.1K/mcL Normal [id number] 4.5 - 11 [facility] MMC NRBC % 0% Normal 869733376824 [facility] Platelet 299K/mcL Normal [id number] 153 - 367 [facility] MCHC 29.9g/dL Below low normal [id number] 33 - 36 [facility] NRBC # 0K/mcL Normal [id number] [facility] HEMATOCRIT 35.4% Normal [id number] 35 - 45 [facility] MCV 83.3fL Normal [id number] 80 - 96 [facility] RDW 14.8% Normal [id number] 12 - 15.2 [facility] MCH 24.9pg Below low normal 709011670191 28 - 33 [facility] Neutrophil % 57.7% Normal [id number] 42.6 - 74.5 [facility] Baso # 0K/mcL Normal [id number] 0 - 0.1 [facility] Lymph % 28.8% Normal [id number] 20.8 - 50.5 [facility] Im Gran # 0K/mcL Normal [id number] 0 - 0.03 [facility] Baso % 0.5% Normal [id number] 0.2 - 1 [facility] Im Gran % 0.5% Normal [id number] 0 - 0.5 [facility] Lymph # 1.8K/mcL Normal [id number] 1.3 - 3.5 [facility] Neutrophil Absolute Count 3.5K/mcL Normal [id number] 1.7 - 7.3 [facility] Cherry % 7.9% Normal [id number] 2 - 10.3 [facility] Cherry # 0.5K/mcL Normal [id number] 0.1 - 0.7 [facility] Eos % 4.6% Above high normal 935024061529 0.9 - 2.9 [facility] Eos # 0.3K/mcL Above high normal 971755761322 0 - 0.2 [facility] GLUCOSE 219mg/dL Above high normal 717464152096 70 - 99 [facility] Magnesium SerPl-mCnc 1.9MG/DL Normal 1.5 - 2.5 [facility] Globulin Ser Calc-mCnc 3.5G/DL Normal 298391752292 1.4 - 5 AA ALT SerPl w/o P-5'-P-cCnc 16[IU]L Normal 774036786566 6 - 46 AA AST SerPl-cCnc 17U/L Normal 10 - 40 [facility] Albumin SerPl BCG-mCnc 3.6G/DL Normal 3.2 - 5 [facility] Albumin/Glob SerPl 1% Normal 901860531803 0.9 - 2. 8 AA Creat SerPl-mCnc 0.9MG/DL Normal 548486152829 0.5 - 1.1 AA Bilirub SerPl-mCnc 0.5MG/DL Normal [id number] 0.3 - 1. 3 [facility] Sodium SerPl-sCnc 138MMOL/L Normal [id number] 135 - 146 [facility] Potassium SerPl-sCnc 4.3MMOL/L Normal [id number] 3.5 - 5.2 [facility] Chloride SerPl-sCnc 106MMOL/L Normal 919302922876 95 - 11 2 [facility] Glucose SerPl-mCnc 166MG/DL Above high normal 205725334570 65 - 140 [facility] Anion Gap SerPl-sCnc 5MMOL/L Normal [id number] 4 - 12 [facility] Prot SerPl-mCnc 7.1G/DL Normal [id number] 6.4 - 8.2 [facility] Calcium SerPl-mCnc 9.2MG/DL Normal 922922974945 8.4 - 10.4 AA CO2 SerPl-sCnc 27MMOL/L Normal 938556227766 18 - 32 [facility] BUN SerPl-mCnc 10MG/DL Normal 742295526690 5 - 25 AA ALP SerPl-cCnc 73[IU]L Normal [id number] 32 - 132 [facility] Neutrophils # Bld Auto 4.4410*3/UL Normal 033490751680 1.8 - 7.7 [facility] Imm Granulocytes/leuk NFr Bld Auto 0.6% Above high normal 302121257694 0 - 0.4 [facility] Monocytes # Bld Auto 0.4910*3/UL Normal [id number] 0.1 - 1.4 [facility] Lymphocytes/leuk NFr Bld Auto 26% Normal [id number] 20 - 40 [facility] PMV Bld Auto 10.2FL Normal [id number] 9.5 - 13.3 [facility] RBC # Bld Auto 4.3510*6/UL Normal [id number] 4 - 5.2 [facility] Hct VFr Bld Auto 37.1% Normal [id number] 36 - 46 [facility] Eosinophil # Bld Auto 0.2410*3/UL Normal 096745757760 0 - 0.5 [facility] Platelet # Bld Auto 67681*3/UL Normal 473147682705 140 - 400 [facility] Neutrophils/leuk NFr Bld Auto 62.8% Normal 640327395083 50 - 70 [facility] Basophils/leuk NFr Bld Auto 0.3% Normal 410314171840 0 - 1 [facility] WBC # Bld Auto 7.0710*3/UL Normal [id number] 3.4 - 10.8 [facility] nRBC # Bld Auto 010*3/UL Normal 518923620317 0 - 0 [facility] Monocytes/leuk NFr Bld Auto 6.9% Normal [id number] 2 - 11 [facility] Imm Granulocytes # Bld Auto 0.0410*3/UL Above high normal 718694081019 0 - 0.03 [facility] MCH RBC Qn Auto 25.5PG Below low normal 634534165194 28 - 32 [facility] Eosinophil/leuk NFr Bld Auto 3.4% Above high normal 983156450356 1 - 3 [facility] nRBC/100 WBC Bld Auto-Rto 0% Normal 589071604289 0 - 0 [facility] Basophils # Bld Auto 0.0210*3/UL Normal [id number] 0 - 0.2 [facility] RDW RBC Auto-Rto 14.6% Normal [id number] 11.8 - 15.5 [facility] RBC Auto-mCnc 29.9G/DL Below low normal 228547764081 3 2 - 36 [facility] MCV RBC Auto 85.3FL Normal [id number] 81 - 99 [facility] Lymphocytes # Bld Auto 1.8410*3/UL Normal [id number] 1 - 4.8 [facility] Hgb Bld-mCnc 11.1G/DL Below low normal [id number] 12 - 15 .5 [facility] Urobilinogen Ur Strip-aCnc 0.2MG/DL Normal 416992974667 - [facility] Ketones Ur Ql Strip Negative Normal 688434540758 - [facility] Color Stone Yellow Normal [facility] Nitrite Ur Strip-mCnc Negative Normal 870325383134 - [facility] Bilirub Ur Ql Strip Negative Normal [id number] - [facility] Glucose 24h Ur-mRate 250MG/DL Abnormal 948245476717 - [facility] RBC # Fld Auto Negative Normal [id number] - [facility] Clarity Ur Clear Normal [id number] [facility] Prot Ur Ql Strip Negative Normal [id number] - [facility] Leukocyte esterase Ur Ql Strip Negative Normal [id number] - [facility] pH Ur Strip 5.5 Normal [id number] 5 - 9 [facility] Sp Gr Ur 1.022 Normal [id number] 1.005 - 1.035 [facility] Non-sq Epi Cells #/area UrnS HPF 0-2 Normal [id number] 0 - 2 [facility] WBC #/area UrnS HPF 0-5 Normal [id number] 0 - 5 [facility] RBC #/area UrnS HPF 0-2 Normal [id number] 0 - 2 [facility] Bacteria #/area UrnS HPF None Seen Normal [id number] - [facility] Hyaline Casts #/area UrnS LPF 0-2 Normal [id number] 0 - 2 [facility] COVID-19/Coronavirus RNA PCR Normal [id number] [facility] Glucose Bedside 239mg/dL Above high normal [id number] 65 - 140 [facility] Glucose Bedside 117mg/dL Normal [id number] 65 - 140 [facility] Glucose Bedside 326mg/dL Above high normal [id number] 65 - 140 [facility] Glucose Bedside 361mg/dL Above high normal [id number] 65 - 140 [facility] Glucose Bedside 294mg/dL Above high normal [id number] 65 - 140 [facility] Glucose Bedside 186mg/dL Above high normal [id number] 65 - 140 [facility] Glucose Bedside 363mg/dL Above high normal [id number] 65 - 140 [facility] Glucose Bedside 312mg/dL Above high normal [id number] 65 - 140 [facility] Glucose Bedside 262mg/dL Above high normal [id number] 65 - 140 [facility] Glucose Bedside 149mg/dL Above high normal [id number] 65 - 140 [facility] Glucose Bedside 276mg/dL Above high normal [id number] 65 - 140 [facility] Glucose Bedside 215mg/dL Above high normal [id number] 65 - 140 [facility] T4 Free 1.1ng/dL Normal [id number] 0.89 - 1.76 [facility] Syphilis Interpretation See Comment Normal [id number] [facility] Syphilis Screen Normal [id number] - M [facility] GFR [place] 97mL/min/1.73 m2 Normal [id number] - [facility] Cholesterol 194mg/dL Normal [id number] 0 - 200 [facility] Triglyceride 105mg/dL Normal [id number] 0 - 149 [facility] HDL 44mg/dL Normal [id number] 40 - 59 [facility] LDL Calculated 129mg/dL Above high normal [id number] 0 - 99 [facility] NonHDL Chol 150mg/dL Normal [id number] [facility] Sodium Lvl 140mmol/L Normal [id number] 136 - 145 [facility] Potassium Lvl 4.3mmol/L Normal [id number] 3.4 - 4.5 [facility] Chloride 110mmol/L Above high normal [id number] 98 - 107 [facility] CO2 26mmol/L Normal [id number] 20 - 31 [facility] AGAP 4mmol/L Below low normal [id number] 5 - 15 [facility] Glucose Lvl Random 184mg/dL Above high normal [id number] 65 - 140 [facility] BUN 11mg/dL Normal [id number] 9 - 23 [facility] Creatinine 0.71mg/dL Normal [id number] 0.5 - 0.8 [facility] Calcium Lvl 9.8mg/dL Normal [id number] 8.7 - 10.4 [facility] Alk Phos 69unit/L Normal [id number] 46 - 116 [facility] AST 17unit/L Normal [id number] 0 - 33 [facility] ALT 15unit/L Normal [id number] 10 - 49 [facility] Total Protein 6.6gm/dL Normal [id number] 5.7 - 8.2 [facility] Albumin Lvl 3.8gm/dL Normal [id number] 3.2 - 4.8 [facility] Globulin 2.8gm/dL Normal [id number] 1.3 - 4.7 [facility] A/G Ratio 1.4 Normal [id number] 1 - 3.8 [facility] Bili Total 0.3mg/dL Normal [id number] 0.2 - 1.1 [facility] Vitamin B12 Lvl 739pg/mL Normal [id number] 211 - 911 [facility] Hgb A1C Glycosylated 11.6% Above high normal [id number] 6 3.8 - 5.6 [facility] TSH 0.316uIU/mL Below low normal [id number] 0.55 - 4.78 [facility] Vit D25 Hydroxy Lvl 24.9ng/mL Below low normal [id number] 30 - 100 [facility] Folate Lvl 16.2ng/mL Normal [id number] 5.4 - 48 [facility] Glucose Bedside 157mg/dL Above high normal [id number] 65 - 140 [facility] Glucose Bedside 342mg/dL Above high normal [id number] 65 - 140 [facility] Glucose Bedside 149mg/dL Above high normal [id number] 65 - 140 [facility] Hgb A1C Glycosylated 11.8% Above high normal [id number] 7 3.8 - 5.6 [facility] Cholesterol 222mg/dL Above high normal [id number] 0 - 200 [facility] Triglyceride 129mg/dL Normal [id number] 0 - 149 [facility] HDL 50mg/dL Normal [id number] 40 - 59 [facility] LDL Calculated 146mg/dL Above high normal [id number] 0 - 99 [facility] NonHDL Chol 172mg/dL Normal [id number] [facility] Ethanol Lvl <3 Normal [id number] 0 - 3 [facility] Glucose Bedside 221mg/dL Above high normal [id number] 65 - 140 [facility] Lipase Lvl 31unit/L Normal [id number] 12 - 53 [facility] Alk Phos 71unit/L Normal [id number] 46 - 116 [facility] AST 16unit/L Normal [id number] 0 - 33 [facility] ALT 14unit/L Normal [id number] 10 - 49 [facility] Total Protein 7.3gm/dL Normal [id number] 5.7 - 8.2 [facility] Albumin Lvl 4.3gm/dL Normal [id number] 3.2 - 4.8 [facility] Globulin 3gm/dL Normal [id number] 1.3 - 4.7 [facility] A/G Ratio 1.4 Normal [id number] 1 - 3.8 [facility] Bili Total 0.5mg/dL Normal [id number] 0.2 - 1.1 [facility] Bili Direct 0.12mg/dL Normal [id number] 0 - 0.3 [facility] Troponin I HS 5ng/L Normal [id number] 0 - 34 [facility] GFR [place] 98mL/min/1.73 m2 Normal [id number] - [facility] Sodium Lvl 141mmol/L Normal [id number] 137 - 145 [facility] Potassium Lvl 4mmol/L Normal [id number] 3.5 - 5.1 [facility] Chloride 99mmol/L Normal [id number] 98 - 107 [facility] CO2 28mmol/L Normal [id number] 22 - 30 [facility] AGAP 14mmol/L Normal [id number] 5 - 15 [facility] Glucose Lvl Random 185mg/dL Above high normal [id number] 65 - 140 [facility] BUN 11mg/dL Normal 7 - 17 [facility] Creatinine 0.7mg/dL Normal [id number] 0.52 - 1.04 [facility] Calcium Ionized 1.21mmol/L Normal [id number] 1.12 - 1.32 [facility] WBC 6.6k/uL Normal [id number] 4 - 10.8 [facility] RBC 4.64million/u L Normal [id number] 3.6 - 5 [facility] Hgb 11.9gm/dL Normal [id number] 11 - 14.5 [facility] Hct 38.5% Normal [id number] 34.5 - 44 [facility] MCV 83FL Normal [id number] 81 - 100 [facility] MCH 25.6pg Below low normal [id number] 27 - 31 [facility] MCHC 30.9gm/dL Below low normal [id number] 31 - 36 [facility] RDW 14.5% Normal [id number] 11.5 - 15.5 [facility] Platelet 314k/uL Normal [id number] 145 - 400 [facility] MPV 9.7FL Normal [id number] 7.5 - 10.4 [facility] NRBC auto 0/100wbcs Normal [id number] 0 - 2 [facility] NRBC Abs 0k/uL Normal [id number] 0 - 0.1 [facility] Neutro % 55.9% Normal [id number] 43 - 75 [facility] Neutro Absolute 3.7k/uL Normal [id number] 1.7 - 8.1 [facility] Imm Gran % 0.3% Normal [id number] 0.1 - 0.3 [facility] Imm Gran Absolute 0.02k/uL Normal [id number] 0.01 - 0.03 [facility] Lymph % 31.8% Normal [id number] 15 - 45 [facility] Lymph Absolute 2.1k/uL Normal [id number] 0.6 - 4.9 [facility] Cherry % 9% Normal [id number] 3 - 12 [facility] Monocyte Abs 0.6k/uL Normal [id number] 0.1 - 1.3 [facility] Eos % 2.7% Normal [id number] 0 - 6 [facility] Eosinophil Abs 0.2k/uL Normal [id number] 0 - 0.7 [facility] Basophil % 0.3% Normal [id number] 0 - 2 [facility] Basophil Abs 0k/uL Normal [id number] 0 - 0.2 [facility] TROPONIN I, HIGH SENSITIVITY <3.5 Normal [id number] 0 - 17 [facility] B-NATURETIC PEPTIDE 12.2pg/mL Normal [id number] 0 - 100 [facility] TROPONIN I, HIGH SENSITIVITY 3.5ng/L Normal 0 - 17 [facility] ANION GAP 7 Normal 3 - 11 [facility] ALKALINE PHOSPHATASE 81U/L Normal 45 - 1 29 [facility] CARBON DIOXIDE (CO2) 27mmol/L Normal [id number] 20 - 3 1 [facility] BILIRUBIN,TOTAL 0.2mg/dL Normal 0.2 - 1.2 [facility] GLUCOSE 273mg/dL Above high normal [id number] 65 - 100 [facility] POTASSIUM, SERUM 4.2mmol/L Normal [id number] 3.5 - 5.2 [facility] BLOOD UREA NITROGEN 11mg/dL Normal 9 - 23 [facility] CALCIUM 9.3mg/dL Normal [id number] 8.4 - 10.5 [facility] CREATININE 0.9mg/dL Normal [id number] 0.5 - 1.3 [facility] ALBUMIN/GLOBULIN RATIO 1.4 Normal 1 - 2.2 [facility] AST/SGOT 15U/L Normal 0 - 34 [facility] ALT/SGPT 11U/L Below low normal [id number] 17 - 52 [facility] SODIUM 140mmol/L Normal 132 - 146 [facility] EST GLOMERULAR FILTRATION RATE > 60 Normal - [facility] TOTAL PROTEIN 6.6g/dL Normal 6.2 - 8.1 [facility] ALBUMIN 3.8g/dL Normal 3.5 - 5 [facility] CHLORIDE 106mmol/L Normal 99 - 109 [facility] BUN/CREATININE RATIO 12.2 Normal 10 - 2 0 [facility] LIPASE 23U/L Normal 6 - 51 [facility] BLOOD,URINE NEGATIVE Normal - [facility] KETONE, URINE TRACE Abnormal - [facility] BILIRUBIN, URINE NEGATIVE Normal - [facility] NITRITE, URINE NEGATIVE Normal - [facility] UROBILINOGEN, URINE 0.2mg/dL Normal 0.2 - 1 [facility] COLOR, URINE YELLOW Normal [facility] APPEARANCE, URINE CLEAR Normal [facility] GLUCOSE, URINE (UA) >=1000 Abnormal - [facility] SPECIFIC GRAVITY,URINE 1.033 Above high normal 1.003 - 1.03 [facility] URINE LEUKOCYTE ESTERASE NEGATIVE Normal - [facility] PH,URINE 5 Normal 5 - 8 [facility] PROTEIN, URINE NEGATIVE Normal - [facility] MEAN PLATELET VOLUME 10.8fL Normal 9 - 12 .8 [facility] MONO # 0.4K/mm3 Normal [id number] 0.1 - 1.1 [facility] BASO % 0.3% Normal 0 - 2 [facility] RED BLOOD COUNT 4.03M/mm3 Normal 3.9 - 5.1 [facility] BASO # 0K/mm3 Normal 0 - 0.2 [facility] LYMPH % 28.5% Normal 15 - 42 [facility] EOS # 0.2K/mm3 Normal 0 - 0.5 [facility] EOS % 3.5% Normal 0 - 5 [facility] NUCLEATED RED BLOOD CELL 0K/mm3 Normal 0 - 0.012 [facility] MONO % 6.7% Normal [id number] 4 - 11 [facility] WHITE BLOOD COUNT 6k/mm3 Normal [id number] 4 - 10 [facility] MEAN CORPUSCULAR HEMOGLOBIN 26.3pg Normal [id number] 26.2 - 32.6 [facility] PLATELET COUNT 307K/mm3 Normal [id number] 130 - 385 [facility] IMMATURE GRANULOCYTE 0.3% Normal [id number] 0 - 0. 5 [facility] NEUTROPHILS % 60.7% Normal [id number] 46 - 75 [facility] MEAN CORPUSCULAR HGB CONC 31.1g/dL Below low normal [id number] 32.1 - 34.5 [facility] RED CELL DISTRIBUTION WIDTH 14.4% Normal [id number] 11.5 - 15.6 [facility] MEAN CORPUSCULAR VOLUME 84.6fL Normal [id number] 80 - 98 [facility] LYMPH # 1.7K/mm3 Normal [id number] 0.6 - 4.2 [facility] HEMATOCRIT 34.1% Below low normal [id number] 35.7 - 43.7 [facility] IMMATURE GRANULOCYTE 0.02K/mm3 Normal [id number] 0 - 0. 05 [facility] NUCLEATED RED BLOOD CELL 0% Normal [id number] 0 - 0.2 [facility] HEMOGLOBIN 10.6g/dL Below low normal [id number] 12 - 14.8 [facility] NEUTROPHILS # 3.6K/mm3 Normal [id number] 1.84 - 7.5 [facility] POC - BEDSIDE GLUCOSE 259mg/dL Normal [id number] 70 - 110 [facility] POCT NOVA-INSTRUMENT NAME AED53 Normal [facility] Glucose BldC Glucomtr-mCnc 270mg/dL Above high normal [facility] POCT NOVA-INSTRUMENT NAME AED53 Normal [facility] Glucose BldC Glucomtr-mCnc 292mg/dL Above high normal [facility] Potassium Bld-sCnc 4.2mmol/L Normal [id number] 3.5 - 5. 1 [facility] Cocaine+BZE Ur Ql Scn Not Detected Normal [facility] fentaNYL Ur Ql Scn Not Detected Normal [facility] Barbiturates Ur Ql Scn>200 ng/mL Not Detected Normal [facility] Cannabinoids Ur Scn-mCnc Not Detected Normal [id number] [facility] Methadone Ur Ql Scn Not Detected Normal [id number] [facility] Benzodiaz metab Ur Ql Scn Not Detected Normal [id number] [facility] Opiates Ur Ql Scn Not Detected Normal [id number] [facility] oxyCODONE SerPlBld Scn-mCnc Not Detected Normal [id number] [facility] Amphetamines Ur Ql Scn Not Detected Normal [id number] [facility] POCT NOVA-INSTRUMENT NAME AED53 Normal [id number] [facility] Glucose BldC Glucomtr-mCnc 252mg/dL Above high normal [id number] 71 - 99 [facility] Deprecated D Dimer PPP-aCnc 1.29mg/LFEU Above high normal [id number] 0 - 0.49 [facility] POCT NOVA-INSTRUMENT NAME AED48 Normal [id number] [facility] Glucose BldC Glucomtr-mCnc 308mg/dL Above high normal [id number] [facility] Troponin I SerPl HS-mCnc 4ng/L Normal [id number] - [facility] LAB CHEM DELTA HS-TROP-I ([facility]) 0-3 HR -1ng/L Normal [id number] - [facility] LAB CHEM DELTA HS-TROP-I ([facility]) 1-3 HR -1ng/L Normal [id number] - [facility] LAB CHEM DELTA HS-TROP-I ([facility]) 0-1 HR 0ng/L Normal [id number] - [facility] Troponin I SerPl HS-mCnc 5ng/L Normal [id number] - [facility] Lipase SerPl-cCnc 21U/L Normal [id number] 16 - 63 [facility] LDLc SerPl Calc-mCnc 113mg/dL Normal [id number] - [facility] NonHDLc SerPl-mCnc 129mg/dL Normal [id number] [facility] Trigl SerPl-mCnc 74mg/dL Normal [id number] - [facility] Cholest/HDLc SerPl 3.6 Normal [id number] [facility] HDLc SerPl-mCnc 50mg/dL Normal [id number] - J Cholest SerPl-mCnc 179mg/dL Normal [id number] - [facility] Ethanol SerPl-mCnc 10mg/dL Normal [id number] - [facility] Troponin I SerPl HS-mCnc 5ng/L Normal [id number] - [facility] NT-proBNP SerPl-mCnc 49pg/mL Normal [id number] - [facility] WBC nRBC cor # Bld Auto 6.01K/cumm Normal [id number] 4.5 - 11 [facility] MCH RBC Qn Auto 25.9pg Below low normal [id number] 26 - 34 [facility] RBC # Bld Auto 5.05M/cumm Normal [id number] 4 - 5.2 [facility] Lymphocytes # Bld Auto 1.59K/cumm Normal [id number] 1.1 - 4.8 [facility] Neutrophils/leuk NFr Bld Auto 62% Normal [id number] 40 - 70 [facility] Lymphocytes/leuk NFr Bld Auto 26.5% Normal [id number] 24 - 44 [facility] PMV Bld Auto 11.5fL Normal [id number] 9.2 - 12.7 [facility] Imm Granulocytes # Bld Auto 0.02K/cumm Normal [id number] 0 - 0.05 [facility] Monocytes/leuk NFr Bld Auto 7.2% Normal [id number] 2 - 11 [facility] Basophils/leuk NFr Bld Auto 0.5% Normal [id number] 0 - 2 [facility] MCHC RBC Auto-mCnc 31.5g/dL Normal [id number] 31 - 37 [facility] Monocytes # Bld Auto 0.43K/cumm Normal [id number] 0.1 - 1.2 [facility] Hct VFr Bld Auto 41.6% Normal [id number] 36 - 46 [facility] Eosinophil/leuk NFr Bld Auto 3.5% Normal [id number] 1 - 4 [facility] Neutrophils # Bld Auto 3.73K/cumm Normal [id number] 1.5 - 7.8 [facility] Platelet # Bld Auto 267K/cumm Normal [id number] 150 - 3 50 [facility] RDW RBC Auto-Rto 14% Normal [id number] 11.5 - 14.5 [facility] nRBC/100 WBC Bld Manual-Rto 0K/cumm Normal [id number] 0 - 0.01 [facility] Imm Granulocytes/leuk NFr Bld Auto 0.3% Normal [id number] 0 - 1 [facility] Eosinophil # Bld Auto 0.21K/cumm Normal [id number] 0 .12 - 0.3 [facility] Hgb Bld-mCnc 13.1g/dL Normal [id number] 12 - 15 [facility] MCV RBC Auto 82.4fL Normal [id number] 80 - 100 [facility] LAB CHEM ASPARTATE AMINO TRANSFERASE - CATEGORY Hemolyzed Normal [id number] [facility] CHEM POTASSIUM - CATEGORY Hemolyzed Normal [id number] [facility] ALP SerPl-cCnc 97U/L Normal [id number] 30 - 120 [facility] AST/ALT SerPl-cRto Normal [id number] [facility] Glucose SerPl-mCnc 213mg/dL Above high normal [id number] 71 - 99 [facility] Chloride SerPl-sCnc 100mmol/L Normal [id number] 96 - 10 9 [facility] BUN SerPl-mCnc 10mg/dL Normal [id number] 7 - 22 [facility] Calcium SerPl-mCnc 9.7mg/dL Normal [id number] 8.4 - 10.5 [facility] Anion Gap SerPl-sCnc 13mmol/L Normal [id number] 7 - 16 [facility] ALT SerPl w/o P-5'-P-cCnc 21U/L Normal [id number] - [facility] Sodium SerPl-sCnc 139mmol/L Normal [id number] 135 - 148 [facility] CO2 SerPl-sCnc 26mmol/L Normal [id number] 21 - 31 [facility] GFR/BSA.pred SerPlBld ONE-KMS-HkQRwp 98mL/min/1.73 sqm Normal [id number] 60 - [facility] Albumin SerPl BCG-mCnc 4.7g/dL Normal [id number] 3.5 - 5.3 [facility] Creat SerPl-mCnc 0.7mg/dL Normal [id number] 0.5 - 1.2 [facility] BUN/Creat SerPl 14 Normal [id number] J Bilirub SerPl-mCnc 0.4mg/dL Normal [id number] - [facility] Prot SerPl-mCnc 8g/dL Normal [id number] 6 - 8.2 [facility] HCV Ab SerPl Ql IA Abnormal [id number] - [facility] Color Ur Yellow Normal [id number] [facility] Glucose Ur Strip.auto-mCnc 100mg/dL Abnormal [id number] [facility] Hgb Ur Ql Strip.auto Negative Normal [id number] [facility] Urobilinogen Ur Strip.auto-mCnc 0.2mg/dL Normal [id number] [facility] Bacteria #/area UrnS Auto None Seen Normal [id number] [facility] Bilirub Ur Ql Strip.auto Negative Normal [id number] [facility] Nitrite Ur Ql Strip.auto Negative Normal [id number] [facility] Appearance Ur Clear Normal [id number] [facility] Leukocyte esterase Ur Ql Strip.auto Negative Normal [id number] - [facility] Prot Ur Ql Strip.auto Negative Normal [id number] [facility] Ketones Ur Ql Strip.auto Negative Normal [id number] [facility] WBC #/area UrnS Auto 1/HPF Normal [id number] [facility] Squamous #/area UrnS Auto 1/HPF Normal [id number] [facility] WBC # Ur Auto 3/mcL Normal [id number] 0 - 27 [facility] RBC #/area UrnS Auto 0/HPF Normal [id number] [facility] Sp Gr Ur Refractometry 1.019 Normal [id number] 1.003 - 1.03 [facility] RBC # Ur Auto 2/mcL Normal [id number] 0 - 27 [facility] pH Ur Strip.auto 6 Normal [id number] 4.6 - 8 [facility] Hyaline Casts #/area UrnS Auto 0/LPF Normal [id number] 0 - 3 [facility] Age 63a Normal [id number] [facility] SARS-CoV-2 RNA Resp Ql NOHEMI+probe Normal [id number] [facility] SARS-CoV-2 RNA Resp Ql NOHEMI+probe Normal [id number] [facility] Is the patient having COVID symptoms? Normal [id number] [facility] RAPID INFLUENZA A YUKO No RNA Detected Normal [id number] [facility] RAPID INFLUENZA B YUKO No RNA Detected Normal [id number] [facility] RAPID RSV YUKO No RNA Detected Normal [id number] [facility] HCV RNA SerPl Ql NOHEMI+probe No RNA Detected Normal [id number] [facility] HCV RNA SerPl NOHEMI+probe-Log# Normal [id number] [facility] The patient was informed of their right to refuse this HIV test without penalty, and the patient consented to have this test performed. The patient will be informed of the results of this test. Yes Normal [id number] [facility] What is the priority of the test? STAT (scarce resource) Normal [id number] [facility] Is the patient having COVID symptoms? Normal [id number] [facility] GLUCOSE 378mg/dL Above high normal [id number] 70 - 99 [facility] GLUCOSE 243mg/dL Above high normal [id number] - 99 [facility] GLUCOSE 234mg/dL Above high normal [id number] - 99 [facility] CTGC DNA Source Urine Normal [id number] U [facility] CHLAMYDIA TRACHOMATIS DNA Normal [id number] - [facility] NEISSERIA GONORRHOEAE DNA Normal [id number] - [facility] GLUCOSE 330mg/dL Above high normal [id number] - [facility] HEMOGLOBIN A1C/HEMOGLOBIN.TOTAL 8.6% Above high normal [id number] - [facility] HEMOGLOBIN A1C/HEMOGLOBIN.TOTAL 8.7% Above high normal [id number] - [facility] HIV 1+2 AB+HIV1 P24 AG Normal [id number] [facility] GLUCOSE 279mg/dL Above high normal [id number] 70 - 99 [facility] SODIUM 138mmol/L Normal [id number] 136 - 145 [facility] ANION GAP 2 Below low normal [id number] 4 - 16 [facility] CARBON DIOXIDE 27mmol/L Normal [id number] 21 - 30 [facility] CHLORIDE 109mmol/L Above high normal 599925574956 98 - 107 [facility] GLOMERULAR FILTRATION RATE/1.73 SQ M.PREDICTED 100 Normal [id number] - [facility] PHOSPHATE 4.5mg/dL Normal [id number] 2.5 - 4.5 [facility] MAGNESIUM 1.8mg/dL Normal [id number] 1.6 - 2.6 [facility] CHOLESTEROL 191mg/dL Normal [id number] [facility] CHOLESTEROL.IN LDL 124mg/dL Normal [id number] [facility] CHOLESTEROL.IN HDL 40mg/dL Normal [id number] [facility] TRIGLYCERIDE 135mg/dL Normal [id number] [facility] ALANINE AMINOTRANSFERASE 20units/L Normal [id number] 0 - 34 [facility] ASPARTATE AMINOTRANSFERASE 32units/L Normal [id number] 14 - 36 [facility] CREATININE 0.66mg/dL Normal [id number] 0.52 - 1.04 [facility] ALKALINE PHOSPHATASE 75units/L Normal [id number] 38 - 1 26 [facility] BILIRUBIN 0.5mg/dL Normal [id number] 0.3 - 1.2 [facility] ALBUMIN 3.9g/dL Normal [id number] 3.2 - 4.6 [facility] CALCIUM 8.9mg/dL Normal [id number] 8.6 - 10.2 [facility] PROTEIN 7.1g/dL Normal [id number] 6.3 - 8.2 [facility] UREA NITROGEN 12mg/dL Normal [id number] 7 - 17 [facility] POTASSIUM 4.6mmol/L Normal [id number] 3.5 - 5.1 [facility] NRBC Absolute Count 0K/mcL Normal [id number] [facility] HEMOGLOBIN 11.4g/dL Below low normal [id number] 11.9 - 15.7 [facility] MPV 11.2fL Normal [id number] 9.4 - 12.4 [facility] RBC 4.4M/mcL Normal [id number] 3.9 - 5.1 [facility] LEUKOCYTES 4.7K/mcL Normal [id number] 4.5 - 11 [facility] NRBC % 0% Normal [id number] [facility] Platelet 282K/mcL Normal [id number] 153 - 367 [facility] MCHC 30.8g/dL Below low normal [id number] 33 - 36 [facility] HEMATOCRIT 37% Normal [id number] 35 - 45 [facility] MCV 84.1fL Normal [id number] 80 - 96 [facility] RDW 14.4% Normal [id number] 12 - 15.2 [facility] MCH 25.9pg Below low normal [id number] 28 - 33 [facility] GLUCOSE 254mg/dL Above high normal [id number] 70 - 99 [facility] GLUCOSE 335mg/dL Above high normal [id number] [facility] GLUCOSE 214mg/dL Above high normal [id number] - [facility] MAGNESIUM 2mg/dL Normal [id number] 1.6 - 2.6 [facility] PHOSPHATE 4.5mg/dL Normal [id number] 2.5 - 4.5 [facility] REAGIN AB Normal [id number] - [facility] FIBRIN D-DIMER FEU 370ng/mLFEU Normal [id number] - [facility] GLOMERULAR FILTRATION RATE/1.73 SQ M.PREDICTED 102 Normal [id number] - [facility] GLUCOSE 118mg/dL Above high normal [id number] - [facility] CARBON DIOXIDE 27mmol/L Normal [id number] 21 - 30 [facility] CREATININE 0.6mg/dL Normal [id number] 0.52 - 1.04 [facility] SODIUM 141mmol/L Normal [id number] 136 - 145 [facility] UREA NITROGEN 10mg/dL Normal [id number] 7 - 17 [facility] S_[facility] CALCIUM 9mg/dL Normal [id number] 8.6 - 10.2 [facility] CHLORIDE 107mmol/L Normal [id number] 98 - 107 [facility] ANION GAP 6 Normal [id number] 4 - 16 [facility] POTASSIUM 3.6mmol/L Normal [id number] 3.5 - 5.1 [facility] NRBC Absolute Count 0K/mcL Normal [id number] [facility] HEMOGLOBIN 11.2g/dL Below low normal [id number] 11.9 - 15.7 [facility] MPV 10.6fL Normal [id number] 9.4 - 12.4 [facility] RBC 4.38M/mcL Normal [id number] 3.9 - 5.1 [facility] LEUKOCYTES 5K/mcL Normal [id number] 4.5 - 11 [facility] NRBC % 0% Normal [id number] [facility] Platelet 270K/mcL Normal [id number] 153 - 367 [facility] MCHC 30.4g/dL Below low normal [id number] 33 - 36 [facility] HEMATOCRIT 36.8% Normal [id number] 35 - 45 [facility] MCV 84fL Normal [id number] 80 - 96 [facility] RDW 14.1% Normal [id number] 12 - 15.2 [facility] MCH 25.6pg Below low normal [id number] 28 - 33 [facility] GLUCOSE 158mg/dL Above high normal [id number] 70 - 99 [facility] GLUCOSE 184mg/dL Above high normal [id number] 70 - 99 [facility] SPECIMEN SOURCE NaspSwab Normal [id number] U [facility] SARS-RELATED CORONAVIRUS RNA Normal [id number] [facility] HAS SYMPTOMS RELATED TO CONDITION OF INTEREST Normal [id number] [facility] INFLUENZA VIRUS B RNA Normal [id number] [facility] STATUS Normal [id number] [facility] RESPIRATORY SYNCYTIAL VIRUS RNA Normal [id number] [facility] INFLUENZA VIRUS A RNA Normal [id number] [facility] HOSPITALIZED FOR CONDITION OF INTEREST Normal [id number] [facility] ADMITTED TO INTENSIVE CARE UNIT FOR CONDITION OF INTEREST Normal [id number] [facility] status Normal [id number] [facility] SARS[facility]CoV-2 RNA RESP Ql NOHEMI+probe Normal [id number] [facility] Patient was hospitalized because of this condition Normal [id number] MD[facility] Admitted to intensive care unit for condition of interest Normal [id number] AUDREY S Has symptoms related to condition of interest Normal [id number] [facility] GLUCOSE [id number] - [facility] SPECIFIC GRAVITY 1.013 Normal [id number] 1.002 - 1.04 [facility] Urine RBC Normal [id number] 0 - 2 [facility] APPEARANCE Normal [id number] [facility] Urine WBC Normal [id number] 0 - 5 [facility] PH 6 Normal [id number] 5 - 8 [facility] COLOR Normal [id number] [facility] Urine Bacteria Normal [id number] [facility] KETONES Normal [id number] - [facility] NITRITE Normal [id number] - [facility] HEMOGLOBIN Normal [id number] - [facility] BILIRUBIN Normal [id number] - [facility] PROTEIN Normal [id number] - [facility] LEUKOCYTE ESTERASE Normal [id number] - [facility] Urine Squamous Epithelial Cells Normal [id number] 0 - 2 [facility] UROBILINOGEN Normal [id number] - [facility] TROPONIN I.CARDIAC 0.02ng/mL Normal - [facility] NATRIURETIC PEPTIDE.B PROHORMONE N-TERMINAL 53.2pg/mL Normal [id number] 20 - 221 [facility] GLOMERULAR FILTRATION RATE/1.73 SQ M.PREDICTED 99 Normal - [facility] GLUCOSE 247mg/dL Above high normal [id number] 70 - 99 [facility] ALANINE AMINOTRANSFERASE 21units/L Normal 0 - 34 [facility] ASPARTATE AMINOTRANSFERASE 32units/L Normal 14 - 36 [facility] CREATININE 0.69mg/dL Normal [id number] 0.52 - 1.04 [facility] ALKALINE PHOSPHATASE 67units/L Normal 38 - 1 26 [facility] SODIUM 137mmol/L Normal [id number] 136 - 145 [facility] BILIRUBIN 0.5mg/dL Normal [id number] 0.3 - 1.2 [facility] ALBUMIN 4.5g/dL Normal [id number] 3.2 - 4.6 [facility] CALCIUM 9.1mg/dL Normal [id number] 8.6 - 10.2 [facility] ANION GAP 4 Normal [id number] 4 - 16 [facility] PROTEIN 8g/dL Normal 6.3 - 8.2 [facility] CARBON DIOXIDE 29mmol/L Normal [id number] 21 - 30 [facility] [facility] NITROGEN 14mg/dL Normal [id number] 7 - 17 [facility] CHLORIDE 104mmol/L Normal [id number] 98 - 107 [facility] POTASSIUM 4.1mmol/L Normal [id number] 3.5 - 5.1 [facility] MAGNESIUM 1.8mg/dL Normal [id number] 1.6 - 2.6 [facility] Neutrophil % 66.7% Normal [id number] 42.6 - 74.5 [facility] Baso # 0K/mcL Normal [id number] 0 - 0.1 [facility] Lymph % 22.7% Normal [id number] 20.8 - 50.5 [facility] Immature Granulocytes % 0.4% Normal [id number] 0 - 0.5 [facility] Baso % 0.4% Normal [id number] 0.2 - 1 [facility] Immature Granulocytes Absolute Count 0K/mcL Normal [id number] 0 - 0.03 [facility] Lymph # 1.7K/mcL Normal [id number] 1.3 - 3.5 [facility] Neutrophil Absolute Count 4.9K/mcL Normal 1.7 - 7.3 [facility] Cherry % 6.6% Normal [id number] 2 - 10.3 [facility] Cherry # 0.5K/mcL Normal 0.1 - 0.7 [facility] Eos % 3.2% Above high normal [id number] 0.9 - 2.9 [facility] Eos # 0.2K/mcL Normal 0 - 0.2 [facility] NRBC Absolute Count 0K/mcL Normal [facility] HEMOGLOBIN 11.5g/dL Below low normal [id number] 11.9 - 15.7 [facility] MPV 11.2fL Normal [id number] 9.4 - 12.4 [facility] RBC 4.37M/mcL Normal [id number] 3.9 - 5.1 [facility] LEUKOCYTES 7.4K/mcL Normal 4.5 - 11 [facility] NRBC % 0% Normal [facility] Platelet 270K/mcL Normal [id number] 153 - 367 [facility] MCHC 31.7g/dL Below low normal [id number] 33 - 36 [facility] HEMATOCRIT 36.3% Normal [id number] 35 - 45 [facility] MCV 83.1fL Normal [id number] 80 - 96 [facility] RDW 14.2% Normal [id number] 12 - 15.2 [facility] MCH 26.3pg Below low normal [id number] 28 - 33 [facility] GLUCOSE 230mg/dL Above high normal [id number] 70 - 99 [facility] GFR [place] 100mL/min/1.7 3m2 Normal [id number] - [facility] Sodium Lvl 140mmol/L Normal [id number] 136 - 145 [facility] Potassium Lvl 4.7mmol/L Above high normal [id number] 3.4 - 4.5 [facility] Chloride 106mmol/L Normal [id number] 98 - 107 [facility] CO2 29mmol/L Normal [id number] 20 - 31 [facility] AGAP 5mmol/L Normal [id number] 5 - 15 [facility] Glucose Lvl Random 288mg/dL Above high normal [id number] 65 - 140 [facility] BUN 10mg/dL Normal [id number] 9 - 23 [facility] Creatinine 0.66mg/dL Normal [id number] 0.5 - 0.8 [facility] Calcium Lvl 9.4mg/dL Normal [id number] 8.7 - 10.4 [facility] UA Spec Grav Normal [id number] 1.005 - 1.03 [facility] UA Bili Normal [id number] - [facility] UA pH 6 Normal [id number] 5 - 8.5 [facility] UA Nitrite Normal [id number] - [facility] UA Urobilinogen 0.2Ehrlich's Normal [id number] - [facility] UA Clarity Normal [id number] - [facility] UA Leuk Est Normal [id number] - [facility] UA Protein Normal [id number] - [facility] UA Glucose 500mg/dL Abnormal [id number] - [facility] UA Blood Normal [id number] - [facility] UA Ketones Normal [id number] - [facility] UA Color Normal [id number] - [facility] WBC 5.05k/uL Normal [id number] 4 - 10.8 [facility] RBC 4.31million/u L Normal [id number] 3.6 - 5 [facility] Hgb 11.3gm/dL Normal [id number] 11 - 14.5 [facility] Hct 36.1% Normal [id number] 34.5 - 44 [facility] MCV 83.8FL Normal [id number] 81 - 100 [facility] MCH 26.2pg Below low normal [id number] 27 - 31 [facility] MCHC 31.3gm/dL Normal [id number] 31 - 36 [facility] RDW 14.1% Normal [id number] 11.5 - 15.5 [facility] Platelet 283k/uL Normal [id number] 145 - 400 [facility] MPV 10.4FL Normal [id number] 7.5 - 10.4 [facility] NRBC auto 0/100wbcs Normal [id number] 0 - 2 [facility] NRBC Abs 0k/uL Normal [id number] 0 - 0.1 [facility] Neutro % 64.3% Normal [id number] 43 - 75 [facility] Neutro Absolute 3.2k/uL Normal [id number] 1.7 - 8.1 [facility] Imm Gran % 0.2% Normal [id number] 0.1 - 0.3 [facility] Imm Gran Absolute 0.01k/uL Normal [id number] 0.01 - 0.03 [facility] Lymph % 24% Normal [id number] 15 - 45 [facility] Lymph Absolute 1.2k/uL Normal [id number] 0.6 - 4.9 [facility] Cherry % 8.1% Normal [id number] 3 - 12 [facility] Monocyte Abs 0.4k/uL Normal [id number] 0.1 - 1.3 [facility] Eos % 3% Normal [id number] 0 - 6 [facility] Eosinophil Abs 0.2k/uL Normal [id number] 0 - 0.7 [facility] Basophil % 0.4% Normal [id number] 0 - 2 [facility] Basophil Abs 0k/uL Normal [id number] 0 - 0.2 [facility] Glucose Bedside 316mg/dL Above high normal [id number] 65 - 140 [facility] Troponin I SerPl HS-mCnc 10ng/L Normal [id number] - 54 [facility] CHEM DELTA HS-TROP-I ([facility]) 0-3 HR Normal [id number] [facility] CHEM DELTA HS-TROP-I ([facility]) 0-1 HR Normal [id number] [facility] Troponin I SerPl HS-mCnc 10ng/L Normal [id number] - 54 [facility] ALP SerPl-cCnc 67U/L Normal [id number] 45 - 117 [facility] AST/ALT SerPl-cRto 0.6 Normal [id number] [facility] Glucose SerPl-mCnc 188mg/dL Above high normal [id number] 71 - 99 [facility] Chloride SerPl-sCnc 109mmol/L Above high normal [id number] 98 - 107 [facility] BUN SerPl-mCnc 11mg/dL Normal [id number] 7 - 18 [facility] Calcium SerPl-mCnc 9.2mg/dL Normal [id number] 8.5 - 10.1 [facility] Anion Gap SerPl-sCnc 4mmol/L Below low normal [id number] 7 - 16 [facility] ALT SerPl w/o P-5'-P-cCnc 27U/L Normal [id number] 6 - 65 [facility] Sodium SerPl-sCnc 141mmol/L Normal [id number] 136 - 145 [facility] CO2 SerPl-sCnc 28mmol/L Normal [id number] - 32 [facility] GFR/BSA.pred SerPlBld VDX-MVM-QsUNry 95mL/min/1.73 sqm Normal [id number] 60 - [facility] Potassium SerPl-sCnc 3.7mmol/L Normal [id number] 3.5 - 5.1 [facility] AST SerPl-cCnc 15U/L Normal [id number] 3 - 37 [facility] Albumin SerPl BCG-mCnc 3.6g/dL Normal [id number] 3.5 - 5 [facility] Creat SerPl-mCnc 0.72mg/dL Normal [id number] 0.6 - 1.3 [facility] BUN/Creat SerPl 15 Normal [id number] [facility] Bilirub SerPl-mCnc 0.3mg/dL Normal [id number] 0.2 - 1. 2 [facility] Prot SerPl-mCnc 7g/dL Normal [id number] 6.4 - 8.2 [facility] Troponin I SerPl HS-mCnc 10ng/L Normal - 54 [facility] Lipase SerPl-cCnc 25U/L Normal [id number] 13 - 75 [facility] WBC nRBC cor # Bld Auto 6.89K/cumm Normal [id number] 4.5 - 11 [facility] MCH RBC Qn Auto 25.8pg Below low normal [id number] 26 - 34 [facility] RBC # Bld Auto 4.22M/cumm Normal [id number] 4 - 5.2 [facility] Lymphocytes # Bld Auto 2.15K/cumm Normal [id number] 1.1 - 4.8 [facility] Neutrophils/leuk NFr Bld Auto 58.8% Normal [id number] 40 - 70 [facility] Lymphocytes/leuk NFr Bld Auto 31.2% Normal [id number] 24 - 44 [facility] PMV Bld Auto 10.3fL Normal [id number] 9.2 - 12.7 [facility] Imm Granulocytes # Bld Auto 0.02K/cumm Normal [id number] 0 - [facility].05 [facility] Mon[facility]/leuk NFr Bld Auto 6.8% Normal [id number] 2 - 11 [facility] Basophils/leuk NFr Bld Auto 0.1% Normal [id number] 0 - 2 [facility] MCHC RBC Auto-mCnc 31g/dL Normal [id number] 31 - 37 [facility] Monocytes # Bld Auto 0.47K/cumm Normal [id number] 0.1 - 1.2 [facility] Hct VFr Bld Auto 35.2% Below low normal [id number] 36 - 46 [facility] Eosinophil/leuk NFr Bld Auto 2.8% Normal [id number] 1 - 4 [facility] Neutrophils # Bld Auto 4.05K/cumm Normal [id number] 1.5 - 7.8 [facility] Platelet # Bld Auto 301K/cumm Normal [id number] 150 - 3 50 [facility] RDW RBC Auto-Rto 14.2% Normal [id number] 11.5 - 14.5 [facility] nRBC/100 WBC Bld Manual-Rto 0K/cumm Normal [id number] 0 - 0.01 [facility] Imm Granulocytes/leuk NFr Bld Auto 0.3% Normal [id number] 0 - 1 [facility] Eosinophil # Bld Auto 0.19K/cumm Normal [id number] 0 .12 - 0.3 [facility] Hgb Bld-mCnc 10.9g/dL Below low normal [id number] 12 - 15 [facility] MCV RBC Auto 83.4fL Normal [id number] 80 - 100 [facility] Potassium Bld-sCnc 3.6mmol/L Normal [id number] 3.5 - 5. 1 [facility] Glucose BldC Glucomtr-mCnc 300mg/dL Above high normal [id number] 65 - 100 [facility]ON[facility] PALLIDUM AB.IGG Non Reactive Normal [id number] - [facility] GLUCOSE 192mg/dL Above high normal [id number] 70 - 99 [facility] GLUCOSE 328mg/dL Above high normal [id number] 70 - 99 [facility] GLOMERULAR FILTRATION RATE.PREDICTED 99 Normal [id number] - [facility] GLUCOSE 174mg/dL Above high normal [id number] 70 - 99 [facility] ALANINE AMINOTRANSFERASE 42units/L Above high normal [id number] 0 - 34 [facility] ASPARTATE AMINOTRANSFERASE 40units/L Above high normal [id number] 14 - 36 [facility] CREATININE 0.7mg/dL Normal 0.52 - 1.04 [facility] ALKALINE PHOSPHATASE 59units/L Normal [id number] 38 - 1 26 [facility] SODIUM 137mmol/L Normal [id number] 136 - 145 [facility] BILIRUBIN 0.3mg/dL Normal [id number] 0.3 - 1.2 [facility] ALBUMIN 3.8g/dL Normal [id number] 3.2 - 4.6 [facility] CALCIUM 9.2mg/dL Normal [id number] 8.6 - 10.2 [facility] ANION GAP 5 Normal [id number] 4 - 16 [facility] PROTEIN 7.2g/dL Normal [id number] 6.3 - 8.2 [facility] CARBON DIOXIDE 30mmol/L Normal [id number] 21 - 30 [facility] UREA NITROGEN 14mg/dL Normal [id number] 7 - 17 [facility] S_[facility] CHLORIDE 102mmol/L Normal [id number] 98 - 107 [facility] POTASSIUM 4mmol/L Normal [id number] 3.5 - 5.1 [facility] PHOSPHATE 3.7mg/dL Normal [id number] 2.5 - 4.5 [facility] MAGNESIUM 1.7mg/dL Normal [id number] 1.6 - 2.6 [facility] GLUCOSE 158mg/dL Above high normal [id number] 70 - 99 [facility] NRBC Absolute Count 0K/mcL Normal [id number] [facility] HEMOGLOBIN 11.6g/dL Below low normal [id number] 11.9 - 15.7 [facility] MPV 10.9fL Normal [id number] 9.4 - 12.4 [facility] RBC 4.5M/mcL Normal 3.9 - 5.1 [facility] LEUKOCYTES 5.7K/mcL Normal [id number] 4.5 - 11 [facility] NRBC % 0% Normal [facility] Platelet 286K/mcL Normal [id number] 153 - 367 [facility] MCHC 30.9g/dL Below low normal [id number] 33 - 36 [facility] HEMATOCRIT 37.5% Normal 35 - 45 [facility] MCV 83.3fL Normal [id number] 80 - 96 [facility] RDW 14.7% Normal [id number] 12 - 15.2 [facility] MCH 25.8pg Below low normal [id number] 28 - 33 [facility] Neutrophil % 60.1% Normal [id number] 42.6 - 74.5 [facility] Baso # 0K/mcL Normal [id number] 0 - 0.1 [facility] Lymph % 27.3% Normal [id number] 20.8 - 50.5 [facility] Immature Granulocytes % 0.4% Normal [id number] 0 - 0.5 [facility] Baso % 0.2% Normal [id number] 0.2 - 1 [facility] Immature Granulocytes Absolute Count 0K/mcL Normal [id number] 0 - 0.03 [facility] Lymph # 1.6K/mcL Normal [id number] 1.3 - 3.5 [facility] Neutrophil Absolute Count 3.4K/mcL Normal [id number] 1.7 - 7.3 [facility] Cherry % 9.2% Normal 2 - 10.3 [facility] Cherry # 0.5K/mcL Normal [id number] 0.1 - 0.7 [facility] Eos % 2.8% Normal 0.9 - 2.9 [facility] Eos # 0.2K/mcL Normal 0 - 0.2 [facility] CTGC DNA Source Swab Normal [id number] [facility] CHLAMYDIA TRACHOMATIS DNA Normal [id number] - [facility] NEISSERIA GONORRHOEAE DNA Normal [id number] - [facility] GLUCOSE 255mg/dL Above high normal [id number] - [facility] GLUCOSE 141mg/dL Above high normal [id number] [facility] GLUCOSE 272mg/dL Above high normal [id number] [facility] GLUCOSE 302mg/dL Above high normal [id number] [facility] FENTANYL Normal [id number] - [facility] CANNABINOIDS Normal - [facility] AMPHETAMINES Normal - [facility] BENZOYLECGONINE Normal [id number] - U [facility] OPIATES - [facility] METHADONE Normal - [facility] PHENCYCLIDINE Normal - [facility] BARBITURATES Normal - [facility] BENZODIAZEPINES Normal - U [facility] Oxycodone Scr Urine Normal - [facility] Urine hCG Qual [facility] Normal [id number] [facility] Urine RBC Normal [id number] 0 - 2 [facility] Urine WBC Normal [id number] 0 - 5 [facility] Urine Bacteria Normal [id number] [facility] Urine Squamous Epithelial Cells Normal [id number] 0 - 2 [facility] GLUCOSE [id number] - [facility] SPECIFIC GRAVITY Normal [id number] 1.003 - 1.035 [facility] APPEARANCE Normal [id number] [facility] PH Normal [id number] 5 - 8 [facility] COLOR Normal [id number] [facility] KETONES Normal [id number] - [facility] NITRITE Normal [id number] - [facility] HEMOGLOBIN Normal [id number] - [facility] BILIRUBIN Normal [id number] - [facility] PROTEIN Normal [id number] - [facility] LEUKOCYTE ESTERASE Normal [id number] - [facility] UROBILINOGEN Normal [id number] - [facility] Hemoglobin A1c/Hemoglobin.total in Blood 10.1% [id number] - [facility] GLUCOSE 173mg/dL Above high normal [id number] [facility] SPECIMEN SOURCE Blood Normal [id number] U [facility] HEPATITIS C VIRUS RNA Normal [id number] - [facility] HEPATITIS C VIRUS RNA Normal [id number] [facility] HEMOGLOBIN A1C/HEMOGLOBIN.TOTAL 10.1% Above high normal [id number] - [facility] GLUCOSE 129mg/dL Above high normal [id number] [facility] HIV 1+2 AB+HIV1 P24 AG Normal [id number] [facility] HEPATITIS C VIRUS AB [id number] - [facility] CHOLESTEROL 164mg/dL Normal [id number] [facility] CHOLESTEROL.IN LDL 108mg/dL Normal [id number] [facility] CHOLESTEROL.IN HDL 40mg/dL Normal [id number] [facility] TRIGLYCERIDE 82mg/dL Normal [id number] [facility] GLOMERULAR FILTRATION RATE.PREDICTED 99 Normal [id number] - [facility] GLUCOSE 222mg/dL Above high normal [id number] 70 - 99 [facility] ALANINE AMINOTRANSFERASE 43units/L Above high normal [id number] 0 - 34 [facility] ASPARTATE AMINOTRANSFERASE 32units/L Normal [id number] 14 - 36 [facility] CREATININE 0.69mg/dL Normal [id number] 0.52 - 1.04 [facility] ALKALINE PHOSPHATASE 59units/L Normal [id number] 38 - 1 26 [facility] SODIUM 136mmol/L Normal [id number] 136 - 145 [facility] BILIRUBIN 0.2mg/dL Below low normal 0.3 - 1.2 [facility] ALBUMIN 3.8g/dL Normal [id number] 3.2 - 4.6 [facility] CALCIUM 9.2mg/dL Normal 8.6 - 10.2 [facility] ANION GAP 6 Normal 4 - 16 [facility] PROTEIN 7.1g/dL Normal [id number] 6.3 - 8.2 [facility] CARBON DIOXIDE 26mmol/L Normal 21 - 30 [facility] UREA NITROGEN 14mg/dL Normal 7 - 17 [facility] S_[facility] CHLORIDE 104mmol/L Normal 98 - 107 [facility] POTASSIUM 4.1mmol/L Normal 3.5 - 5.1 [facility] NRBC Absolute Count 0K/mcL Normal [facility] HEMOGLOBIN 11.1g/dL Below low normal 11.9 - 15.7 [facility] MPV 10.5fL Normal 9.4 - 12.4 [facility] RBC 4.33M/mcL Normal 3.9 - 5.1 [facility] LEUKOCYTES 5.8K/mcL Normal [id number] 4.5 - 11 [facility] NRBC % 0% Normal [facility] Platelet 282K/mcL Normal [id number] 153 - 367 [facility] MCHC 31.2g/dL Below low normal [id number] 33 - 36 [facility] HEMATOCRIT 35.6% Normal [id number] 35 - 45 [facility] MCV 82.2fL Normal [id number] 80 - 96 [facility] RDW 14.7% Normal [id number] 12 - 15.2 [facility] MCH 25.6pg Below low normal [id number] 28 - 33 [facility] COBALAMINS 809pg/mL Normal [id number] 239 - 931 [facility] Sed Rate 23mm/hour Normal [id number] 0 - 30 [facility] HEPATITIS C VIRUS AB [id number] - [facility] HEPATITIS A VIRUS AB.IGM Normal [id number] - [facility] HEPATITIS B VIRUS CORE AB.IGM Normal - [facility] FERRITIN 17.7ng/mL Normal [id number] 11.1 - 264 [facility] HEPATITIS B VIRUS SURFACE AG Normal [id number] - [facility] GLUCOSE 271mg/dL Above high normal [id number] 70 - 99 [facility] TRANSFERRIN 212mg/dL Normal [id number] 206 - 381 [facility] IRON BINDING CAPACITY 303mcg/dL Normal [id number] 274 - 546 [facility] IRON SATURATION 21% Normal [id number] 15 - 50 [facility] C REACTIVE PROTEIN 1.1mg/dL Above high normal [id number] - [facility] IRON 64mcg/dL Normal [id number] 37 - 170 [facility] GLUCOSE 176mg/dL Above high normal [id number] 70 - 99 [facility] GLUCOSE 121mg/dL Above high normal [id number] 70 - 99 [facility] SPECIMEN SOURCE NaspSwab Normal [id number] [facility] SARS-RELATED CORONAVIRUS RNA Normal [id number] [facility] HAS SYMPTOMS RELATED TO CONDITION OF INTEREST Normal [id number] [facility] INFLUENZA VIRUS B RNA Normal [id number] [facility] STATUS Normal [id number] [facility] RESPIRATORY SYNCYTIAL VIRUS RNA Normal [id number] [facility] INFLUENZA VIRUS A RNA Normal [id number] [facility] HOSPITALIZED FOR CONDITION OF INTEREST Normal [id number] [facility] ADMITTED TO INTENSIVE CARE UNIT FOR CONDITION OF INTEREST Normal [id number] [facility] status Normal [id number] [facility] SARS-CoV-2 RNA RESP Ql NOHEMI+probe Normal [id number] [facility] Patient was hospitalized because of this condition Normal [id number] [facility] Admitted to intensive care unit for condition of interest Normal [id number] AUDREY S Has symptoms related to condition of interest Normal [id number] [facility] GLOMERULAR FILTRATION RATE.PREDICTED 103 Normal - [facility] MAGNESIUM 1.7mg/dL Normal 1.6 - 2.6 [facility] GLUCOSE 172mg/dL Above high normal 70 - 99 [facility] ALANINE AMINOTRANSFERASE 50units/L Above high normal 0 - 34 [facility] ASPARTATE AMINOTRANSFERASE 38units/L Above high normal 14 - 36 [facility] CREATININE 0.59mg/dL Normal 0.52 - 1.04 [facility] ALKALINE PHOSPHATASE 58units/L Normal 38 - 1 26 [facility] SODIUM 136mmol/L Normal 136 - 145 [facility] BILIRUBIN 0.4mg/dL Normal 0.3 - 1.2 [facility] ALBUMIN 4.2g/dL Normal 3.2 - 4.6 [facility] CALCIUM 9.2mg/dL Normal 8.6 - 10.2 [facility] ANION GAP 6 Normal 4 - 16 [facility] PROTEIN 7.7g/dL Normal 6.3 - 8.2 [facility] CARBON DIOXIDE 28mmol/L Normal 21 - 30 [facility] UREA NITROGEN 10mg/dL Normal 7 - 17 [facility] S_[facility] CHLORIDE 102mmol/L Normal 98 - 107 [facility] POTASSIUM 3.7mmol/L Normal 3.5 - 5.1 [facility] Neutrophil % 57.6% Normal 42.6 - 74.5 [facility] Baso # 0K/mcL Normal 0 - 0.1 [facility] Lymph % 28.5% Normal 20.8 - 50.5 [facility] Immature Granulocytes % 0.4% Normal 0 - 0.5 [facility] Baso % 0.4% Normal 0.2 - 1 [facility] Immature Granulocytes Absolute Count 0K/mcL Normal 0 - 0.03 [facility] Lymph # 1.6K/mcL Normal 1.3 - 3.5 [facility] Neutrophil Absolute Count 3.2K/mcL Normal 1.7 - 7.3 [facility] Cherry % 9.3% Normal 2 - 10.3 [facility] Cherry # 0.5K/mcL Normal 0.1 - 0.7 [facility] Eos % 3.8% Above high normal 0.9 - 2.9 [facility] Eos # 0.2K/mcL Normal 0 - 0.2 [facility] NRBC Absolute Count 0K/mcL Normal [facility] HEMOGLOBIN 11.3g/dL Below low normal 11.9 - 15.7 [facility] MPV 10.2fL Normal 9.4 - 12.4 [facility] RBC 4.36M/mcL Normal 3.9 - 5.1 [facility] LEUKOCYTES 5.5K/mcL Normal 4.5 - 11 [facility] NRBC % 0% Normal [facility] Platelet 291K/mcL Normal 153 - 367 [facility] [facility] MCHC 31g/dL Below low normal 33 - 36 [facility] HEMATOCRIT 36.4% Normal 35 - 45 [facility] MCV 83.5fL Normal 80 - 96 [facility] RDW 14.4% Normal 12 - 15.2 [facility] MCH 25.9pg Below low normal 28 - 33 [facility] GLUCOSE 129mg/dL Above high normal [id number] 70 - 99 [facility] BKR REFLEX URINE CULTURE See Comment Normal [id number] [facility] Glucose Ur Strip.auto-mCnc 4+ Abnormal - [facility] WBC # Ur Strip Negative Normal - [facility] Hgb Ur Ql Strip.auto Negative Normal - [facility] Clarity Ur Refract.auto Clear Normal - [facility] Bilirub Ur Ql Strip.auto Negative Normal - [facility] Nitrite Ur Ql Strip.auto Negative Normal - [facility] Prot Ur Strip.auto-mCnc Negative Normal - [facility] Color Ur Auto Yellow Normal - [facility] Ketones Ur Strip.auto-mCnc Negative Normal - [facility] Urobilinogen Ur Strip-mCnc 2mg/dL Normal - [facility] Sp Gr Ur Refract.auto 1.034 Above high normal [id number] 1.005 - 1.03 [facility] pH Ur Strip.auto 6 Normal 5.5 - 7.5 [facility] BKR TROPONIN T HS 1 HOUR DELTA FROM 0 HOUR 1ng/L Normal [id number] [facility] Troponin T SerPl HS-mCnc 8ng/L Normal [id number] - [facility] Lipase SerPl-cCnc 27U/L Normal [id number] 11 - 55 [facility] Troponin T SerPl HS-mCnc 7ng/L Normal [id number] - [facility] MCH RBC Qn Auto 26pg Below low normal [id number] 27 - 33 [facility] RBC # Bld Auto 4.39M/uL Normal [id number] 4 - 6 [facility] Lymphocytes # Bld Auto 1.23e8671/uL Normal [id number] 0.6 - 3.7 [facility] Neutrophils/leuk NFr Bld Auto 71.7% Normal [id number] 39 - 72 [facility] Lymphocytes/leuk NFr Bld Auto 19.5% Normal [id number] 17 - 50 [facility] PMV Bld Auto 11.7fL Normal [id number] 8 - 12 [facility] BKR WAM BASOPHIL ABSOLUTE COUNT. 0.62m0033/uL Normal [id number] 0 - 1 [facility] Imm Granulocytes # Bld Auto 0.27h7175/uL Normal [id number] 0 - 0.3 [facility] Monocytes/leuk NFr Bld Auto 6.1% Normal [id number] 4 - 12 [facility] Basophils/leuk NFr Bld Auto 0.1% Normal [id number] 0 - 1.4 [facility] nRBC/100 WBC Bld Auto-Rto 0% Normal [id number] 0 - 1 [facility] MCHC RBC Auto-mCnc 30.4g/dL Below low normal [id number] 3 1 - 36 [facility] Monocytes # Bld Auto 0.90y0019/uL Normal [id number] 0 - 1 [facility] Hct VFr Bld Auto 37.5% Normal [id number] 35 - 45 [facility] Eosinophil/leuk NFr Bld Auto 2.3% Normal [id number] 0 - 5 [facility] Neutrophils # Bld Auto 5.6g0670/uL Normal [id number] 2 - 7.6 [facility] Platelet # Bld Auto 539r8788/uL Normal [id number] 150 - 420 [facility] RDW RBC Auto-Rto 14.3% Normal [id number] 11 - 15 [facility] Imm Granulocytes/leuk NFr Bld Auto 0.3% Normal [id number] 0 - 1 [facility] Eosinophil # Bld Auto 0.38y0241/uL Normal [id number] 0 - 1 [facility] Hgb Bld-mCnc 11.4g/dL Below low normal [id number] 11.7 - 15.5 [facility] nRBC # Bld Auto 8s3069/uL Normal [id number] 0 - 1 [facility] MCV RBC Auto 85.4fL Normal [id number] 80 - 100 [facility] WBC # Bld Auto 7.9s5765/uL Normal [id number] 4 - 11 [facility] ALP SerPl-cCnc 84U/L Normal [id number] 9 - 122 [facility] AST/ALT SerPl-cRto 1 Normal [id number] - [facility] Glucose SerPl-mCnc 319mg/dL Above high normal [id number] 70 - 100 [facility] Chloride SerPl-sCnc 100mmol/L Normal 98 - 10 7 [facility] BUN SerPl-mCnc 13mg/dL Normal 6 - 20 [facility] Calcium SerPl-mCnc 9.2mg/dL Normal 8.8 - 10.2 [facility] ALT SerPl w/o P-5'-P-cCnc 29U/L Normal 10 - 35 [facility] Sodium SerPl-sCnc 135mmol/L Below low normal 13 6 - 144 [facility] eGFRcr SerPlBld CKD-EPI 2020 60mL/min/1.73 m2 Normal - [facility] Globulin Plas-mCnc 3.3g/dL Normal 2.3 - 3. 5 [facility] Anion Gap3 SerPl-sCnc 12 Normal 7 - 1 7 [facility] AST SerPl w P-5'-P-cCnc 28U/L Normal 10 - 35 [facility] HCO3 SerPl-sCnc 23mmol/L Normal 20 - 30 [facility] Potassium SerPl-sCnc 4.3mmol/L Normal 3.3 - 5.3 [facility] Albumin SerPl BCG-mCnc 3.9g/dL Normal 3.6 - 4.9 [facility] Creat SerPl-mCnc 0.73mg/dL Normal 0.4 - 1.3 [facility] BUN/Creat SerPl 17.8 Normal 8 - 23 [facility] Albumin/Glob SerPl 1.2 Normal 1 - 2.2 [facility] Bilirub SerPl-mCnc 0.2mg/dL Normal - [facility] Prot SerPl-mCnc 7.2g/dL Normal 6.6 - 8.7 [facility] BKR TROPONIN T HS 1 HOUR DELTA FROM 0 HOUR 3ng/L Normal [facility] Troponin T SerPl HS-mCnc 11ng/L Normal [id number] - [facility] Troponin T SerPl HS-mCnc 8ng/L Normal [id number] - [facility] ALP SerPl-cCnc 81U/L Normal [id number] 9 - 122 [facility] AST/ALT SerPl-cRto 0.9 Normal [id number] - [facility] Glucose SerPl-mCnc 292mg/dL Above high normal [id number] 70 - 100 [facility] Chloride SerPl-sCnc 104mmol/L Normal [id number] 98 - 10 7 [facility] BUN SerPl-mCnc 12mg/dL Normal [id number] 6 - 20 [facility] Calcium SerPl-mCnc 9.6mg/dL Normal [id number] 8.8 - 10.2 [facility] ALT SerPl w/o P-5'-P-cCnc 29U/L Normal [id number] 10 - 35 [facility] Sodium SerPl-sCnc 141mmol/L Normal [id number] 136 - 144 [facility] eGFRcr SerPlBld CKD-EPI 2020 60mL/min/1.73 m2 Normal [id number] - [facility] Globulin Plas-mCnc 2.9g/dL Normal [id number] 2.3 - 3. 5 [facility] Anion Gap3 SerPl-sCnc 10 Normal [id number] 7 - 1 7 [facility] AST SerPl w P-5'-P-cCnc 25U/L Normal [id number] 10 - 35 [facility] HCO3 SerPl-sCnc 27mmol/L Normal [id number] 20 - 30 [facility] Potassium SerPl-sCnc 4.3mmol/L Normal [id number] 3.3 - 5.3 [facility] Albumin SerPl BCG-mCnc 4.5g/dL Normal [id number] 3.6 - 4.9 [facility] Creat SerPl-mCnc 0.84mg/dL Normal [id number] 0.4 - 1.3 [facility] BUN/Creat SerPl 14.3 Normal [id number] 8 - 23 [facility] Albumin/Glob SerPl 1.6 Normal [id number] 1 - 2.2 [facility] Bilirub SerPl-mCnc 0.2mg/dL Normal [id number] - [facility] Prot SerPl-mCnc 7.4g/dL Normal [id number] 6.6 - 8.7 [facility] BKR ESTIMATED AVERAGE GLUCOSE 220mg/dL Normal [id number] [facility] Hgb A1c MFr Bld 9.3% Above high normal [id number] 4 - 5.6 [facility] BKR REFLEX URINE CULTURE See Comment Normal [id number] [facility] BKR BUPRENORPHINE SCREEN Negative Normal [id number] - [facility] BKR DRUGS OF ABUSE NOTE Normal [id number] [facility] fentaNYL Ur Ql Scn Negative Normal [id number] - [facility] BKR DRUGS OF ABUSE NOTE Normal [id number] [facility] PCP Ur Ql Scn>25 ng/mL Negative Normal [id number] - [facility] Benzodiaz Ur Ql Scn Negative Normal [id number] - [facility] Barbiturates Ur Ql Scn Negative Normal [id number] - [facility] oxyCODONE Ur Ql Scn Negative Normal [id number] - [facility] BKR DRUGS OF ABUSE DISCLAIMER See Comment Normal [id number] [facility] BZE Ur Ql Scn Negative Normal [id number] - [facility] Cannabinoids Ur Ql Scn Negative Normal [id number] - [facility] Opiates Ur Ql Scn Negative Normal [id number] - [facility] BKR METHADONE METABOLITE SCREEN, URINE, NO CONF. Negative Normal [id number] - [facility] Amphetamines Ur Ql Scn Negative Normal [id number] - [facility] Glucose Ur Strip.auto-mCnc 4+ Abnormal [id number] - [facility] WBC # Ur Strip Negative Normal [id number] - [facility] Hgb Ur Ql Strip.auto Negative Normal [id number] - [facility] Clarity Ur Refract.auto Clear Normal [id number] - [facility] Bilirub Ur Ql Strip.auto Negative Normal [id number] - [facility] Nitrite Ur Ql Strip.auto Negative Normal [id number] - [facility] Prot Ur Strip.auto-mCnc Negative Normal - [facility] Color Ur Auto Yellow Normal - [facility] Ketones Ur Strip.auto-mCnc Negative Normal - [facility] Urobilinogen Ur Strip-mCnc 2mg/dL Normal [id number] - [facility] Sp Gr Ur Refract.auto 1.038 Above high normal [id number] 1.005 - 1.03 [facility] pH Ur Strip.auto 5.5 Normal 5.5 - 7.5 [facility] ALP SerPl-cCnc 77U/L Normal [id number] 9 - 122 [facility] AST/ALT SerPl-cRto 1 Normal [id number] - [facility] Glucose SerPl-mCnc 369mg/dL Above high normal 70 - 100 [facility] Chloride SerPl-sCnc 106mmol/L Normal [id number] 98 - 10 7 [facility] BUN SerPl-mCnc 11mg/dL Normal 6 - 20 [facility] Calcium SerPl-mCnc 8.8mg/dL Normal 8.8 - 10.2 [facility] ALT SerPl w/o P-5'-P-cCnc 21U/L Normal 10 - 35 [facility] Sodium SerPl-sCnc 139mmol/L Normal [id number] 136 - 144 [facility] eGFRcr SerPlBld CKD-EPI 2020 60mL/min/1.73 m2 Normal [id number] - [facility] Globulin Plas-mCnc 2.7g/dL Normal 2.3 - 3. 5 [facility] Anion Gap3 SerPl-sCnc 11 Normal [id number] 7 - 1 7 [facility] AST SerPl w P-5'-P-cCnc 21U/L Normal [id number] 10 - 35 [facility] HCO3 SerPl-sCnc 22mmol/L Normal [id number] 20 - 30 [facility] Potassium SerPl-sCnc 4.4mmol/L Normal [id number] 3.3 - 5.3 [facility] Albumin SerPl BCG-mCnc 3.6g/dL Normal [id number] 3.6 - 4.9 [facility] Creat SerPl-mCnc 0.64mg/dL Normal [id number] 0.4 - 1.3 [facility] BUN/Creat SerPl 17.2 Normal [id number] 8 - 23 [facility] Albumin/Glob SerPl 1.3 Normal [id number] 1 - 2.2 [facility] Bilirub SerPl-mCnc 0.2mg/dL Normal [id number] - [facility] Prot SerPl-mCnc 6.3g/dL Below low normal [id number] 6.6 - 8.7 [facility] TSH SerPl DL<=0.005 mIU/L-aCnc 0.959uIU/mL Normal [id number] - [facility] LDLc SerPl Calc-mCnc 37mg/dL Normal [id number] - [facility] Trigl SerPl-mCnc 52mg/dL Normal [id number] - [facility] Cholest/HDLc SerPl 2 Normal [id number] 0 - 5 [facility] HDLc SerPl-mCnc 50mg/dL Normal [id number] - [facility] Cholest SerPl-mCnc 100mg/dL Normal [id number] - [facility] MCH RBC Qn Auto 25.9pg Below low normal [id number] 27 - 33 [facility] RBC # Bld Auto 3.98M/uL Below low normal [id number] 4 - 6 [facility] Lymphocytes # Bld Auto 1.01e4187/uL Normal [id number] 0.6 - 3.7 [facility] Neutrophils/leuk NFr Bld Auto 63.7% Normal [id number] 39 - 72 [facility] Lymphocytes/leuk NFr Bld Auto 23.5% Normal [id number] 17 - 50 [facility] PMV Bld Auto 10.8fL Normal [id number] 8 - 12 [facility] BKR WAM BASOPHIL ABSOLUTE COUNT. 0.55j7318/uL Normal [id number] 0 - 1 [facility] Imm Granulocytes # Bld Auto 0.09b7274/uL Normal [id number] 0 - 0.3 [facility] Monocytes/leuk NFr Bld Auto 8.3% Normal [id number] 4 - 12 [facility] Basophils/leuk NFr Bld Auto 0.2% Normal [id number] 0 - 1.4 [facility] nRBC/100 WBC Bld Auto-Rto 0% Normal [id number] 0 - 1 [facility] MCHC RBC Auto-mCnc 30.7g/dL Below low normal [id number] 3 1 - 36 [facility] Monocytes # Bld Auto 0.58i7711/uL Normal [id number] 0 - 1 [facility] Hct VFr Bld Auto 33.6% Below low normal [id number] 35 - 45 [facility] Eosinophil/leuk NFr Bld Auto 4% Normal [id number] 0 - 5 [facility] Neutrophils # Bld Auto 4.14e4039/uL Normal [id number] 2 - 7.6 [facility] Platelet # Bld Auto 497i6859/uL Normal [id number] 150 - 420 [facility] RDW RBC Auto-Rto 14.4% Normal [id number] 11 - 15 [facility] Imm Granulocytes/leuk NFr Bld Auto 0.3% Normal [id number] 0 - 1 [facility] Eosinophil # Bld Auto 0.23m5636/uL Normal [id number] 0 - 1 [facility] Hgb Bld-mCnc 10.3g/dL Below low normal [id number] 11.7 - 15.5 [facility] nRBC # Bld Auto 3r0139/uL Normal [id number] 0 - 1 [facility] MCV RBC Auto 84.4fL Normal [id number] 80 - 100 [facility] WBC # Bld Auto 6.1w9603/uL Normal [id number] 4 - 11 [facility] POCT NOVA-INSTRUMENT NAME BV401 Normal [id number] [facility] Glucose BldC Glucomtr-mCnc 108mg/dL Above high normal [id number] [facility] POCT NOVA-INSTRUMENT NAME BV401 Normal [id number]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
--- NOTE | 2024-11-06 09:47 | ED_ITS ---
HPI - Chest Pain General Chief Complaint: Chest Pain Stated Complaint: CHEST PAIN Time Seen by Provider: 11/06/24 09:47 History of Present Illness ED Provider: Martin HERMAN narrative: The patient is a 64-year-old woman. She says she is a type 2 diabetic. She takes Lantus insulin. She also has a history of schizoaffective disorder. She is not on any other medications. She reports a history of a pulmonary embolism several months ago. She is not currently on any anticoagulation. She does not have a primary care doctor. She can not remember where she last received a prescription for Lantus insulin. She has been homeless for several years and has been moving around from different hotels in the [facility] recently. She has been in [place] and [place] and now [place]. The patient says that she has had pains in her chest for about 3 weeks. She describes a sharp pain in her chest that is worse with moving and breathing. She says that she feels it in in the front of her chest radiating to the back of her chest. She says that last night she slept until about 4:00 AM when the pain seemed to worsen and she ultimately decided to come to the emergency room. She called an ambulance and was brought here this morning. She also says that she has had swelling in her feet and ankles. Related Data Home Medications ?Medication ?Instructions ?Recorded ?Confirmed insulin glargine 100 unit/mL (3 60 unit subcut BID 01/26/21 06/09/21 mL) subcutaneous pen (Lantus Solostar U-100 Insulin) rosuvastatin 20 mg tablet 1 tab PO BEDTIME 01/26/21 06/09/21 Previous Rx's ?Medication ?Instructions ?Recorded clonazepam 0.5 mg tablet 0.5 mg PO BID PRN Anxiety #0 tabs 06/17/21 clonazepam 0.5 mg tablet (Klonopin) 0.5 mg PO BID PRN anxiety #14 tabs 06/17/21 cyclobenzaprine 10 mg tablet 10 mg PO BID PRN pain #14 tabs 06/17/21 levofloxacin 500 mg tablet 500 mg PO Q24H #2 tabs 06/17/21 metronidazole 500 mg tablet 500 mg PO BID #4 tabs 06/17/21 mirtazapine 7.5 mg tablet 3.75 mg (1/2 x 7.5 mg) PO BEDTIME 06/17/21 #15 tabs Allergies Allergy/AdvReac Type Severity Reaction Status Date / Time ibuprofen Allergy Swelling Verified 11/06/24 12:50 insulin lispro Allergy Unknown Verified 11/06/24 08:44 [From Humalog U-100 Insulin] insulin regular Allergy Unknown Verified 11/06/24 08:44 [From Humulin R Regular U-100 Insuln] ketorolac [From Toradol] Allergy Swelling Verified 11/06/24 12:50 Review of Systems 2 Review of Systems: Yes all other systems are reviewed and are negative [facility] Past Medical History Medical History CVA (cerebral vascular accident) Diabetes Schizoaffective disorder, depressive type Surgical History H/O: hysterectomy Social History Social History Household Members: None Household Members Other:: patient reports being alone and homeless for 17 years Housing: Homeless Do you presently have visiting nurse or other home services: No Unable to assess alcohol history related to: Unknown Patient Tobacco Use Status: Never used Tobacco Second Hand Smoke Exposure: No service: No Sexual orientation: Did not discuss Physical Exam 2 Vital Signs: Vital Signs: Last Vital Signs Temp 98.0 F 11/06/24 15:51 Pulse 83 11/06/24 15:51 Resp 18 11/06/24 15:51 BP 134/60 11/06/24 15:51 Pulse Ox 99 11/06/24 15:51 O2 Del Method Room Air 11/06/24 15:51 BMI result Body Mass Index 39.3 Const: Other: The patient is awake and alert, pleasant and cooperative. She does not appear in distress or seem ill HEENT: Other: . Face is symmetrical. Mucous membrane s moist. Eyes: General: appearance normal, both eyes and all related structures Neck: Neck: Yes full ROM, Yes no lymphadenopathy and Yes no JVD Resp: Effort & Inspection: normal respiratory effort Auscultation: clear to auscultation bilaterally Cardio: Rate: regular rate Rhythm: regular rhythm Heart sounds: S1 normal heart sound present and S2 normal heart sound present GI: Other: Abdomen is soft and nontender Skin: Other: skin is dry and unremarkable Neuro: Other: the patient is awake and alert, calm and cooperative, normal mental status. Cranial nerves are grossly intact. She moves her extremities normally. Gait is normal. Extrem: Other: No peripheral edema. The patient stated that she had edema at the ankles but I did not appreciate any. Her calves seem symmetrical and nontender. Medications Administered Discontinued Medications Generic Name Dose Route Start Last Admin Trade Name Freq PRN Reason Stop Dose Admin Acetaminophen 1,000 mg in 100 mls @ 400 mls/hr 11/06/24 12:52 11/06/24 13:22 Ofirmev IV 11/06/24 13:06 Infused ONCE ONE Infusion Ketorolac Tromethamine 15 mg 11/06/24 12:44 11/06/24 12:57 Ketorolac Tromethamine 15 Mg/Ml Vial IVPUSH 11/06/24 12:45 Not Given ONCE ONE Medical Decision Making Medical Decision Making [facility] Narrative: The patient is a 64-year-old woman who presented with a complaint of chest pain. She had several hours of chest pain symptoms before arriving in the emergency room. She indicated that she thought her symptoms might be similar to a previous pulmonary embolism. She also described bilateral lower extremity swelling although this was not apparent on my exam. A workup was done in the emergency room that included an EKG that I felt was nonischemic. An undetectable troponin. Normal D-dimer. Normal chest x-ray. Overall I felt her medical workup was negative. The patient expressed dissatisfaction at the prospect of being discharged. on further questioning it seemed a lot of her reluctance to be discharged had to do with her housing. She has been staying at a motel that she is not happy with. I believe that she had been placed in a hotel by a community development aide with [facility]. The patient is dissatisfied with her interactions with [facility]. Case Management and social Work were consulted. Arrangements have been made for the patient to be placed at the [facility] in [place]. Attack he was arranged to take her there. She seemed satisfied with this arrangement. Lab Data 11/06/24 11:57 11/06/24 11:57 Labs: Lab Results 11/06/24 11/06/24 Range/Units 11:57 15:21 WBC 5.2 (4.8-10.8) X10*3/uL RBC 4.36 (4.20-5.50) X10*6/uL Hgb 11.6 L (12.0-16.0) g/dl Hct 36.6 L (37.0-47.0) % MCV 83.9 (80.0-98.0) fL MCH 26.6 L (27.0-33.0) pg MCHC 31.7 (31.0-35.0) g/dl RDW 14.3 (11.0-16.0) % Plt Count 309 (160-400) X10*3/uL MPV 10.1 (9.4-12.3) fL Immature Gran % (Auto) 0.4 (0.0-0.4) % Neut % (Auto) 58.0 (45-73) % Lymph % (Auto) 33.1 (20-40) % [place] % (Auto) 5.0 (2-11) % Eos % (Auto) 3.3 (0-4) % Baso % (Auto) 0.2 (0-2) % Lymph # (Auto) 1.7 (1.2-4.9) X10*3/uL [place] # (Auto) 0.3 (0.1-1.2) X10*3/uL Eos # (Auto) 0.2 (0.0-0.4) X10*3/uL Baso # (Auto) 0.0 (0.0-0.2) X10*3/uL Abs Immat Gran (auto) 0.02 (0.00-0.03) X10*3/uL Absolute Neuts (auto) 3.0 (2.0-8.3) x10*3/uL Absolute Nucleated RBC 0.000 (0.0-0.012) X10*3/uL Nucleated RBC % (auto) 0.0 (0.0-0.2) /100WBC D-Dimer High Sensitivty 152 NG/ML Sodium 140 (135-145) mmol/L Potassium 4.1 (3.3-5.1) mmol/L Chloride 108 (96-108) mmol/L Carbon Dioxide 23 (22-29) mmol/L Anion Gap 13 (12-20) BUN 9 (9-16) mg/dL Creatinine 0.72 (0.5-1.4) mg/dL Estim Creat Clear Calc 98.4 Estimated GFR > 60 Random Glucose 146 H (60-115) mg/dL Calcium 9.7 (8.4-10.2) mg/dL Magnesium 1.9 (1.6-2.6) mg/dL Total Bilirubin 0.4 (0.0-1.0) mg/dL Direct Bilirubin 0.2 (0.0-0.5) mg/dL AST 20 (5-31) U/L ALT 16 (0-31) U/L Alkaline Phosphatase 68 (39-117) U/L Troponin I High Sens < 2.7 (<3.5-17.0) ng/L C-Reactive Protein 0.74 H (< or = 0.50) mg/dL B-Natriuretic Peptide 17 (<100) pg/mL Total Protein 7.7 (6.5-8.0) g/dL Albumin 4.1 (3.5-5.0) g/dL Urine Color Yellow Urine Appearance Clear Urine pH 5.5 (5.0-9.0) Ur Specific [place] 1.015 (1.005-1.025) Urine Protein Negative (Neg-Trace) mg/dL Urine Glucose (UA) Negative (Negative) mg/dL Urine Ketones Negative (Negative) mg/dL Urine Blood Negative (Negative) Urine Nitrite Negative (Negative) Ur Leukocyte Esterase Negative (Negative) Urine Opiates Screen Not Detected (Not Detect) Ur Buprenorphine Scrn Not Detected (Not Detect) ng/mL Ur Oxycodone Screen Not Detected (Not Detect) ng/mL Urine Methadone Screen Not Detected (Not Detect) ng/mL Urine Fentanyl Screen Not Detected (Not Detect) Ur Barbiturates Screen Not Detected (Not Detect) Ur Phencyclidine Scrn Not Detected (Not Detect) Ur Amphetamines Screen Not Detected (Not Detect) U Benzodiazepines Scrn Not Detected (Not Detect) Urine Cocaine Screen Not Detected (Not Detect) U Marijuana (THC) Screen Not Detected (Not Detect) Ethyl Alcohol < 10 mg/dL Independent Interpretation I performed an independent interpretation of an: EKG Interpretation: EKG at 08:42 shows normal sinus rhythm at 78 beats per minute. No definite acute ischemic changes. Discharge Plan Discharge Clinical Impression: Chest pain Patient Disposition: Home, Self-Care Additional Instructions: Your testing in the emergency room today is very reassuring. Please continue your Lantus insulin. Please try to get a new primary care doctor. I would recommend trying to contact the [facility]. They have an office in [place] called the [facility]. The number is [phone]. Return to the emergency room if worse. Prescriptions: No Action rosuvastatin 20 mg tablet 1 tab PO BEDTIME Lantus Solostar U-100 Insulin 100 unit/mL (3 mL) insulin pen 60 unit subcut BID clonazepam 0.5 mg Tablet 0.5 mg PO BID PRN (Reason: Anxiety) Qty: 0 4RF metronidazole 500 mg Tablet 500 mg PO BID Qty: 4 0RF levofloxacin 500 mg Tablet 500 mg PO Q24H Qty: 2 0RF cyclobenzaprine 10 mg tablet 10 mg PO BID PRN (Reason: pain) Qty: 14 4RF mirtazapine 7.5 mg tablet 3.75 mg PO BEDTIME Qty: 15 0RF clonazepam [Klonopin] 0.5 mg tablet 0.5 mg PO BID PRN (Reason: anxiety) Qty: 14 4RF Referrals: [facility] [Provider Group] (Needs PCP) Interventions: ED Discharge Assessment Last Done: 11/06/24 15:51 Discharge Date/Time: 11/06/24 15:52 Print Language: Venezuelan
[2024-11-06 12:02] LABS: MANUAL DIFF FLAG NO
[2024-11-06 12:03] LABS: Basophils Percent Auto 0.2 % (0-2); Eosinophils Absolute Auto 0.2 X10*3/uL (0.0-0.4); Eosinophils Percent Auto 3.3 % (0-4); Hematocrit 36.6 % (37.0-47.0); Hemoglobin 11.6 g/dl (12.0-16.0); Imm Gran Abs Auto 0.02 X10*3/uL (0.00-0.03); Imm Gran Pct Auto 0.4 % (0.0-0.4); Lymphocytes Absolute Auto 1.7 X10*3/uL (1.2-4.9); Lymphocytes Percent Auto 33.1 % (20-40); Mean Corpuscular HGB Conc 31.7 g/dl (31.0-35.0); Mean Corpuscular Hemoglobin 26.6 pg (27.0-33.0); Mean Corpuscular Volume 83.9 fL (80.0-98.0); Mean Platelet Volume 10.1 fL (9.4-12.3); Monocytes Absolute Auto 0.3 X10*3/uL (0.1-1.2); Platelet Count 309 X10*3/uL (160-400); Red Blood Count 4.36 X10*6/uL (4.20-5.50); Red Cell Distribution Width 14.3 % (11.0-16.0); White Blood Count 5.2 X10*3/uL (4.8-10.8)
--- NOTE | 2024-11-06 12:08 | PC.NURSE ---
20g IV access established in left upper arm by Walt Campos RN with ultrasound guidance. Labs drawn by Rusty Herzog, pending results. Dr. Salazar aware.
[2024-11-06 12:11] LABS: D Dimer High Sensitivity 152 NG/ML
[2024-11-06 12:21] LABS: Anion Gap 13 (12-20); Blood Urea Nitrogen 9 mg/dL (9-16); Calcium 9.7 mg/dL (8.4-10.2); Carbon Dioxide 23 mmol/L (22-29); Chloride 108 mmol/L (96-108); Creatinine Clr Calc Pharmacy 98.4; Estimated Glomerular Filt Rate > 60; Glucose Random 146 mg/dL (60-115); Potassium 4.1 mmol/L (3.3-5.1); Sodium 140 mmol/L (135-145)
[2024-11-06 12:27] LABS: B Type Natriuretic Peptide 17 pg/mL (<100)
[2024-11-06 12:39] VITALS: BP 151/61; PULSE 77; RESP 20; O2SAT 100
[2024-11-06] MEDS: Acetaminophen 1,000 MG/100 ML PIGGYBACK 400 MG IV (13:07)
[2024-11-06 13:09] LABS: Alanine Aminotransferase 16 U/L (0-31); Albumin Level 4.1 g/dL (3.5-5.0); Alkaline Phosphatase 68 U/L (39-117); Aspartate Amino Transferase 20 U/L (5-31); Bilirubin Direct 0.2 mg/dL (0.0-0.5); Bilirubin Total 0.4 mg/dL (0.0-1.0); C Reactive Protein 0.74 mg/dL (< or = 0.50); Ethanol < 10 mg/dL; Magnesium 1.9 mg/dL (1.6-2.6); Total Protein 7.7 g/dL (6.5-8.0); Troponin-I High Sensitivity < 2.7 ng/L (<3.5-17.0)
[2024-11-06 15:24] VITALS: BP 134/60; PULSE 83; RESP 18; O2SAT 99
[2024-11-06 15:29] LABS: Appearance Urine Clear; Color Urine Yellow; Glucose Urine UA Negative (Negative); Leukocyte Esterase Urine Negative (Negative); Nitrite Urine Negative (Negative); PH 5.5 (5.0-9.0); Specific Gravity - Urine 1.015 (1.005-1.025); Urine Blood Negative (Negative); Urine Ketones Negative (Negative); Urine Protein Negative (Neg-Trace)
[2024-11-06 15:37] LABS: Amphetamine Screen Urine Not Detected (Not Detect); Barbiturates, Urine Not Detected (Not Detect); Benzodiazepines Screen Urine Not Detected (Not Detect); Buprenorphine Scr Not Detected (Not Detect); Cannabinoid Screen Urine Not Detected (Not Detect); Cocaine Screen Urine Not Detected (Not Detect); Fentanyl, urine Not Detected (Not Detect); Methadone Screen, Urine Not Detected (Not Detect); Opiate Screen Urine Not Detected (Not Detect); Oxycodone Screen Urine Not Detected (Not Detect); Phencyclidine Screen Urine Not Detected (Not Detect)
--- NOTE | 2024-11-06 15:39 | MHC.CM.PN ---
Addendum entered by Laura Bowman 11/06/24 15:48: [facility] ARRANGED PT TO DC TO [facility] AT [address] [facility] IN [place] Original Note: CM MET WITH PT WHO REPORTS SHE WAS LIVING AT [facility] AFTER BEING SENT THERE FROM [facility] AND THEN [facility] MOVED HER TO [facility] SHE SAYS SHE WAS NOT SAFE THERE AND THINKS THAT IS WHAT MADE HER SICK, SHE SAYS THERE WAS FECES EVERYWHERE AND ANIMALS WERE NESTING SHE ALSO STATES THERE WERE PEOPLE IN THE [place]., WHEN ASKED TO ELAB[place]ATE, SHE SAYS SHE IS NOT ONE OF THOSE MENTAL PEOPLE . PT STATES IT IS TOO COLD OUTSIDE TO NOT HAVE SKILLED NURSING AND SHE CANNOT RETURN TO THAT HOTEL ROOM SHE IS AGREEABLE TO RETURNING TO [facility] [place] CM CALLED [facility] [place] AND SPOKE TO INTAKE, THEY STATED A CONDITIONAL BED JUST OPENED FOR THE NIGHT. THE BED WAS RESERVED FOR THIS PT PER INTAKE PERSONNEL, PT MUST BE THERE BY 1700 HOURS OR THE SPOT WILL BE GIVEN TO SOMEONE ELSE PT IS AWARE [facility] IS BEING ARRANGED AND STATES SHE IS READY TO GO
[2024-11-06 15:51] VITALS: BP 134/60; PULSE 83; RESP 18; TEMP 36.7; O2SAT 99
== END 2024-11-06 15:52 | disposition home or self-care (01) ==
PROVIDERS: Emergency Provider Emergency Medicine
DX: R07.89 Other chest pain (principal); E11.9 Type 2 diabetes mellitus without complications; R06.02 Shortness of breath; Z79.4 Long term (current) use of insulin; Z79.899 Other long term (current) drug therapy; Z51.81 Encounter for therapeutic drug level monitoring
CPT/HCPCS: 36415; 71046; 80048; 80076; 80307; 81003; 83735; 83880; 84484; 85025; 85379; 86140; 93005; 96374; 99285; J0131

== ENCOUNTER → 2024-11-06 08:23 | Outpatient (BNV) | payer MEDICARE, MEDICAID, SELFPAY | PROVIDERS: Emergency Provider Emergency Medicine; Visit Provider Internal Medicine Cardiovascular Disease | DX: R07.9 Chest pain, unspecified (principal); R94.31 Abnormal electrocardiogram [ECG] [EKG] | CPT/HCPCS: 93010 ==

== ENCOUNTER → 2024-11-06 09:59 | Outpatient (BNV) | payer MEDICARE, MEDICAID, SELFPAY | PROVIDERS: Emergency Provider Emergency Medicine; Visit Provider Radiology Vascular & Interventional Radiology | DX: R07.9 Chest pain, unspecified (principal) | CPT/HCPCS: 71046 ==